=== PATIENT | female | born 1960 | race Hispanic/Latino ===

== ENCOUNTER 2021-01-04 17:34 | Inpatient (IN) | payer OTHER ==
[2021-01-04] MEDS ORDERED: dilTIAZem 25 MG/5 ML INJ ONE (19:00)
[2021-01-04] MEDS ORDERED: dilTIAZem 25 MG/5 ML INJ IV ONE (19:12)
--- NOTE | 2021-01-04 19:14 | Emergency Department Report ---
ED Shortness of Breath HPI - General Chief Complaint: Dyspnea/Respdistress Stated Complaint: SOB Time Seen by Provider: 01/04/21 19:00 Source: patient Mode of arrival: Ambulatory Limitations: No Limitations - History of Present Illness Initial Comments: 60-year-old female, no past medical history, presents to ED with shortness of breath x1 week. Patient reports some dyspnea on exertion. She reports some associated swelling in bilateral lower legs. Patient denies any chest pain, fever, cough. She denies any known contact with anyone who has tested positive for COVID-19. Patient states she has not received a COVID-19 vaccine yet. She is also reporting some lower abdominal pain. Patient reports tobacco use, denies any alcohol or drug use. MD Complaint: shortness of breath -: week(s) (1) Severity: moderate Consistency: intermittent Improves With: rest Worsens With: exertion Treatments Prior to Arrival: none - Related Data Allergies Allergy/AdvReac Type Severity Reaction Status Date / Time No Known Allergies Allergy Unverified 01/04/21 18:34 ED Review of Systems ROS: Stated complaint: SOB Other details as noted in HPI Comment: All other systems reviewed and negative Constitutional: denies: chills, fever Respiratory: SOB with exertion. denies: cough Cardiovascular: edema. denies: chest pain Gastrointestinal: abdominal pain ED Physical Exam - General Limitations: No Limitations General appearance: alert, anxious - Head Head exam: Present: atraumatic, normocephalic - Eye Eye exam: Present: normal appearance, EOMI - ENT ENT exam: Present: mucous membranes moist - Neck Neck exam: Present: normal inspection - Respiratory Respiratory exam: Present: other (Patient is tachypneic) - Cardiovascular Cardiovascular Exam: Present: tachycardia, irregular rhythm - GI/Abdominal GI/Abdominal exam: Present: soft. Absent: distended, tenderness - Extremities Exam Extremities exam: Present: other (1+ pitting edema bilateral lower legs). Absent: calf tenderness - Neurological Exam Neurological exam: Present: alert, oriented X3 - Psychiatric Psychiatric exam: Present: anxious - Skin Skin exam: Present: warm, dry, intact, normal color ED Course Vital Signs 01/04/21 01/04/21 01/04/21 18:32 18:58 19:00 Temperature 98.4 F Pulse Rate 187 H 183 H 192 H Respiratory 24 36 H Rate Blood Pressure 139/81 Blood Pressure 143/105 [Left] O2 Sat by Pulse 95 94 Oximetry 01/04/21 01/04/21 01/04/21 19:08 19:10 19:32 Temperature Pulse Rate 155 H 139 H 136 H Respiratory 26 H 37 H Rate Blood Pressure 148/110 Blood Pressure [Left] O2 Sat by Pulse 97 96 Oximetry 01/04/21 01/04/21 01/04/21 19:35 19:41 19:45 Temperature Pulse Rate 142 H 139 H 131 H Respiratory 38 H 33 H 31 H Rate Blood Pressure 119/66 Blood Pressure [Left] O2 Sat by Pulse 96 96 97 Oximetry 01/04/21 01/04/21 01/04/21 20:01 20:02 20:14 Temperature Pulse Rate 150 H 153 H 122 H Respiratory 36 H Rate Blood Pressure 94/73 119/66 112/76 Blood Pressure [Left] O2 Sat by Pulse 98 Oximetry 01/04/21 01/04/21 01/04/21 20:15 20:31 20:55 Temperature Pulse Rate 113 H 127 H 118 H Respiratory 23 29 H 42 H Rate Blood Pressure 112/76 128/76 128/76 Blood Pressure [Left] O2 Sat by Pulse 98 95 Oximetry 01/04/21 01/04/21 01/04/21 21:01 21:15 21:31 Temperature Pulse Rate 100 H 89 96 H Respiratory 31 H 32 H 24 Rate Blood Pressure 102/68 108/82 102/75 Blood Pressure [Left] O2 Sat by Pulse 90 98 98 Oximetry 01/04/21 01/04/21 01/04/21 21:45 22:01 22:15 Temperature Pulse Rate 112 H 109 H 98 H Respiratory 21 26 H 23 Rate Blood Pressure 105/58 105/81 98/67 Blood Pressure [Left] O2 Sat by Pulse 96 96 94 Oximetry 01/04/21 01/04/21 01/04/21 22:31 22:45 23:02 Temperature Pulse Rate 122 H 132 H 133 H Respiratory 19 23 Rate Blood Pressure 109/58 101/62 Blood Pressure [Left] O2 Sat by Pulse 96 99 Oximetry ED Medical Decision Making - Lab Data Result diagrams: 01/04/21 22:32 01/04/21 22:32 - EKG Data -: EKG Interpreted by Ms EKG shows normal: axis, intervals, QRS complexes, ST-T waves Rate: tachycardia (rate 193) - EKG Data Interpretation: other (Atrial fibrillation with RVR) - Radiology Data Radiology results: report reviewed, image reviewed - Medical Decision Making 65-year-old female presents to ED with dyspnea on exertion x1 week. Patient also presents tachycardic. EKG shows A. fib with RVR. Patient given Cardizem, which improved rate from the 190s to the 140s. Patient was then given 5 of metoprolol and metoprolol 25 mg p.o. rate improved to the 90s. BNP is elevated. CTA chest was performed secondary to elevated D-dimer. CTA shows moderate bilateral pleural effusions and interstitial edema. Patient given IV Lasix. She will be admitted by hospitalist, Dr. Arroyo, for further management. - Differential Diagnosis CHF, PE, pneumonia Critical Care Time: Yes Critical care time in (mins) excluding proc time.: 35 Critical care attestation.: If time is entered above; I have spent that time in minutes in the direct care of this critically ill patient, excluding procedure time. Critical Care Time: 35 min ED Disposition Clinical Impression: New onset atrial fibrillation, Atrial fibrillation with RVR, New onset of congestive heart failure Disposition: OP ADMIT IP TO THIS HOSP Is pt being admited?: Yes Condition: Stable Time of Disposition: 21:14
--- NOTE | 2021-01-04 19:24 | XRay Report ---
CHEST 1 VIEW 01/04/2021 6:16 PM INDICATION / CLINICAL INFORMATION: Difficulty breathing and right leg pain starting one week ago. Shannon rtness of breath COMPARISON: None available. FINDINGS: SUPPORT DEVICES: None. HEART / MEDIASTINUM: The heart is mildly enlarged. LUNGS / PLEURA: Interstitial lung markings are mildly increased diffusely. There are small bilateral pleural effusions with obscuration of the hemidiaphragms. No pneumothorax. ADDITIONAL FINDINGS: No significant additional findings. IMPRESSION: Mild congestive heart failure. Signer Name: Zeke Lester MD Signed: 01/04/2021 7:20 PM Workstation Name: [id number]
[2021-01-04 19:35] LABS: Basophils % (Auto) 0.4 % (0.0-1.8); Eosinophils % (Auto) 0.4 % (0.0-4.3); Hematocrit 35.4 % (30.3-42.9); Hemoglobin 11.7 gm/dl (10.1-14.3); Lymphocytes # (Auto) 1.4 K/mm3 (1.2-5.4); Lymphocytes % (Auto) 22.4 % (13.4-35.0); Mean Corpuscular HGB Conc 33 % (30-34); Mean Corpuscular Volume 83 fl (79-97); Monocytes # (Auto) 0.5 K/mm3 (0.0-0.8); Monocytes % (Auto) 8.3 % (0.0-7.3); Platelet Count 159 K/mm3 (140-440); Red Blood Count 4.28 M/mm3 (3.65-5.03); Red Cell Distribution Width 14.8 % (13.2-15.2)
[2021-01-04 19:38] LABS: Bacteria,Urine 1+ /HPF (Negative); Bilirubin,Urine NEG (Negative); Blood,Urine NEG (Negative); Color,Urine Amber (Yellow); Hyaline Casts,Urine 1 /LPF; Mucus,Urine 3+ /HPF
[2021-01-04 19:44] LABS: INR 1.25 (0.87-1.13)
[2021-01-04 19:45] LABS: Partial Thromboplastin Time 27.7 Sec. (24.2-36.6)
[2021-01-04 19:45] LABS: Amphetamine Screen,Urine Negative; Benzodiazepines Screen,Urine Negative; Cannabinoid Screen,Urine Negative; Cocaine Screen,Urine Negative; Methadone Screen,Urine Negative; Opiate Screen,Urine Negative
[2021-01-04 19:49] LABS: Blood Urea Nitrogen 17 mg/dL (7-17); Calcium 8.8 mg/dL (8.4-10.2); Hemolysis Index 4
[2021-01-04 19:50] LABS: BUN/Creatinine Ratio 28
[2021-01-04 19:53] LABS: Albumin 3.4 g/dL (3.9-5); Bilirubin,Direct 0.4 mg/dL (0-0.2)
[2021-01-04] MEDS ORDERED: METOPROLOL TARTRATE 50 MG TAB PO ONE ×2 (19:55→20:10)
[2021-01-04] MEDS ORDERED: METOPROLOL TARTRATE 5 MG/5 ML INJ IV ONE (19:58)
[2021-01-04] MEDS ORDERED: FUROSEMIDE 40 MG/4 ML INJ IV ONE (20:57)
--- NOTE | 2021-01-04 21:06 | Cat Scan Report ---
CTA CHEST WITH CONTRAST INDICATION / CLINICAL INFORMATION: Shortness of breath. TECHNIQUE: Axial CT images were obtained through the chest after injection of 100 cc Omnipaque 350 IV contrast. 3 plane MIP and/or 3D reconstructions were produced. All CT scans at this location are per formed using CT dose reduction for ALARA by means of automated exposure control. COMPARISON: None available. FINDINGS: PULMONARY ARTERIES: Good opacification without intraluminal filling defect to suggest acute PTE. THORACIC AORTA: Mild atherosclerotic calcification without acute abnormality. HEART: Enlarged. CORONARY ARTERY CALCIFICATION: Mild. MEDIASTINUM / MEAGAN: No significant abnormality. PLEURA: Moderate bilateral effusions. No pneumothorax. LUNGS: Diffuse interstitial edema with Ina B lines. More confluent bibasilar consolidation. ADDITIONAL FINDINGS: Moderate generalized anasarca. UPPER ABDOMEN: Mild upper abdominal ascites. Reflux of contrast into the IVC. SKELETAL STRUCTURES: No significant osseous abnormality. IMPRESSION: 1. No CT evidence for pulmonary embolism. 2. Moderate congestive heart failure. Generalized anasarca. Signer Name: Zeke Lester MD Signed: 01/04/2021 9:02 PM Workstation Name: [id number]
[2021-01-04] MEDS ORDERED: LORazepam 2 MG/ML VIAL ONE (21:20)
[2021-01-04] MEDS ORDERED: LORazepam 2 MG/ML VIAL IV ONE (21:23)
[2021-01-04] MEDS ORDERED: NITROGLYCERIN 0.4 MG TAB SUBL SL PRN (21:48)
[2021-01-04] MEDS ORDERED: ALBUTEROL 2.5 MG/3 ML NEBU IH PRN (21:48)
[2021-01-04] MEDS ORDERED: MORPHINE 2 MG/1 ML INJ IV PRN (21:48)
[2021-01-04] MEDS ORDERED: ONDANSETRON 4 MG/2 ML INJ IV PRN (21:48)
[2021-01-04] MEDS ORDERED: ACETAMINOPHEN 325 MG TAB PO PRN (21:48)
--- NOTE | 2021-01-04 21:59 | History and Physical Report ---
History of Present Illness Date of examination: 01/04/21 Date of admission: 01/04/21 Chief complaint: Shortness of breath A. fib with RVR History of present illness: 60-year-old female with no significant past medical history was brought to the emergency room because of progressive shortness of breath particularly on exertion for last 1 week. She reports some associated swelling in bilateral lower legs. Patient denies any chest pain, fever, cough. She denies any known contact with anyone who has tested positive for COVID-19. Patient states she has not received a COVID-19 vaccine yet. She is also reporting some lower abdominal pain. Patient reports tobacco use, denies any alcohol or drug use. In the emergency room patient is found to have acute CHF exacerbation. Patient also has A. fib with RVR. D-dimer is elevated 1343.06. proBNP 1810. CT scan of the chest showed no PE, moderate acute congestive heart failure generalized anasarca Medications and Allergies Allergies Allergy/AdvReac Type Severity Reaction Status Date / Time No Known Allergies Allergy Unverified 01/04/21 18:34 Review of Systems Cardiovascular: orthopnea, edema, shortness of breath, dyspnea on exertion Respiratory: shortness of breath, dyspnea on exertion Exam - Constitutional Vitals: Temp Pulse Resp BP Pulse Ox 98.4 F 112 H 21 105/58 96 01/04/21 18:32 01/04/21 21:45 01/04/21 21:45 01/04/21 21:45 01/04/21 21:45 General appearance: Present: no acute distress, well-nourished - EENT Eyes: Present: PERRL ENT: hearing intact, clear oral mucosa - Neck Neck: Present: supple, normal ROM - Respiratory Respiratory effort: normal Respiratory: left: rales - Cardiovascular Rhythm: irregularly irregular Heart Sounds: Present: S1 & S2. Absent: rub, click - Extremities Extremities: pulses symmetrical, No edema Extremity abnormal: edema Peripheral Pulses: within normal limits - Abdominal General gastrointestinal: Present: soft, non-tender, non-distended, normal bowel sounds Female genitourinary: Present: normal - Integumentary Integumentary: Present: clear, warm, dry - Musculoskeletal Musculoskeletal: gait normal, strength equal bilaterally - Psychiatric Psychiatric: appropriate mood/affect, intact judgment & insight - Neurologic Neurologic: CNII-XII intact, moves all extremities HEART Score - HEART Score Age: 45-65 Risk factors: 1-2 risk factors Troponin: Troponin T < 0.010 ng/mL (0.00-0.029) 01/04/21 19: Troponin: < normal limit Results - Labs CBC & Chem 7: 01/04/21 19:21 01/04/21 19:21 Labs: Laboratory Last Values WBC 6.1 K/mm3 (4.5-11.0) 01/04/21 19: RBC 4.28 M/mm3 (3.65-5.03) 01/04/21 19: Hgb 11.7 gm/dl (10.1-14.3) 01/04/21 19: Hct 35.4 % (30.3-42.9) 01/04/21 19: MCV 83 fl (79-97) 01/04/21 19: MCH 27 pg (28-32) L 01/04/21 19: MCHC 33 % (30-34) 01/04/21 19: RDW 14.8 % (13.2-15.2) 01/04/21 19: Plt Count 159 K/mm3 (140-440) 01/04/21 19: Lymph % (Auto) 22.4 % (13.4-35.0) 01/04/21 19: [place] % (Auto) 8.3 % (0.0-7.3) H 01/04/21 19: Eos % (Auto) 0.4 % (0.0-4.3) 01/04/21 19: Baso % (Auto) 0.4 % (0.0-1.8) 01/04/21 19:21 Lymph # (Auto) 1.4 K/mm3 (1.2-5.4) 01/04/21 19: [place] # (Auto) 0.5 K/mm3 (0.0-0.8) 01/04/21 19: Eos # (Auto) 0.0 K/mm3 (0.0-0.4) 01/04/21 19:21 Baso # (Auto) 0.0 K/mm3 (0.0-0.1) 01/04/21 19: Seg Neutrophils % 68.5 % (40.0-70.0) 01/04/21 19:21 Seg Neutrophils # 4.2 K/mm3 (1.8-7.7) 01/04/21 19:21 PT 15.7 Sec. (12.2-14.9) H 01/04/21 19:21 INR 1.25 (0.87-1.13) H 01/04/21 19:21 APTT 27.7 Sec. (24.2-36.6) 01/04/21 19:21 D-Dimer 1343.06 ng/mlDDU (0-234) H 01/04/21 19:21 Sodium 137 mmol/L (137-145) 01/04/21 19:21 Potassium 4.2 mmol/L (3.6-5.0) 01/04/21 19:21 Chloride 105.7 mmol/L (98-107) 01/04/21 19:21 Carbon Dioxide 21 mmol/L (22-30) L 01/04/21 19:21 Anion Gap 15 mmol/L 01/04/21 19:21 BUN 17 mg/dL (7-17) 01/04/21 19:21 Creatinine 0.6 mg/dL (0.6-1.2) 01/04/21 19:21 Estimated GFR > 60 ml/min 01/04/21 19:21 BUN/Creatinine Ratio 28 % 01/04/21 19:21 Glucose 135 mg/dL (65-100) H 01/04/21 19:21 Calcium 8.8 mg/dL (8.4-10.2) 01/04/21 19:21 Total Bilirubin 0.90 mg/dL (0.1-1.2) 01/04/21 19:21 Direct Bilirubin 0.4 mg/dL (0-0.2) H 01/04/21 19:21 Indirect Bilirubin 0.5 mg/dL 01/04/21 19:21 AST 21 units/L (5-40) 01/04/21 19:21 ALT 12 units/L (7-56) 01/04/21 19:21 Alkaline Phosphatase 119 units/L (35-129) 01/04/21 19:21 Troponin T < 0.010 ng/mL (0.00-0.029) 01/04/21 19:21 NT-Pro-B Natriuret Pep 1810 pg/mL (0-900) H 01/04/21 19:21 Total Protein 6.6 g/dL (6.3-8.2) 01/04/21 19:21 Albumin 3.4 g/dL (3.9-5) L 01/04/21 19:21 Albumin/Globulin Ratio 1.1 % 01/04/21 19:21 Lipase 35 units/L (13-60) 01/04/21 19:26 Urine Color Shereen (Yellow) 01/04/21 Unknown Urine Turbidity Hazy (Clear) 01/04/21 Unknown Urine pH 5.0 (5.0-7.0) 01/04/21 Unknown Ur Specific [place] 1.025 (1.003-1.030) 01/04/21 Unknown Urine Protein 100 mg/dl mg/dL (Negative) 01/04/21 Unknown Urine Glucose (UA) Neg mg/dL (Negative) 01/04/21 Unknown Urine Ketones Neg mg/dL (Negative) 01/04/21 Unknown Urine Blood Neg (Negative) 01/04/21 Unknown Urine Nitrite Neg (Negative) 01/04/21 Unknown Urine Bilirubin Neg (Negative) 01/04/21 Unknown Urine Urobilinogen 4.0 mg/dL (<2.0) 01/04/21 Unknown Ur Leukocyte Esterase Sm (Negative) 01/04/21 Unknown Urine WBC (Auto) 11.0 /HPF (0.0-6.0) H 01/04/21 Unknown Urine RBC (Auto) 5.0 /HPF (0.0-6.0) 01/04/21 Unknown U Epithel Cells (Auto) 8.0 /HPF (0-13.0) 01/04/21 Unknown Urine Bacteria (Auto) 1+ /HPF (Negative) 01/04/21 Unknown Hyaline Casts 1 /LPF 01/04/21 Unknown Urine Mucus 3+ /HPF 01/04/21 Unknown Urine Opiates Screen Negative 01/04/21 Unknown Urine Methadone Screen Negative 01/04/21 Unknown Ur Barbiturates Screen Negative 01/04/21 Unknown Ur Phencyclidine Scrn Negative 01/04/21 Unknown Ur Amphetamines Screen Negative 01/04/21 Unknown U Benzodiazepines Scrn Negative 01/04/21 Unknown Urine Cocaine Screen Negative 01/04/21 Unknown U Marijuana (THC) Screen Negative 01/04/21 Unknown Drugs of Abuse Note Disclamer 01/04/21 Unknown - Imaging and Cardiology CT scan - chest: report reviewed Assessment and Plan VTE prophylaxis?: Chemical Plan of care discussed with patient/family: Yes - Patient Problems (1) New onset of congestive heart failure Status: Acute Plan to address problem: Admit the patient to the medical telemetry. Put the patient on CHF pathway. Oxygen by nasal cannula 3 to per minute. DuoNeb by nebulizer every 4 hours as needed. Fluid restriction. Lasix 40 mg IV every 12 hours. Strict input output. Echocardiogram. Will consult cardiology for evaluation. (2) New onset atrial fibrillation Status: Acute Plan to address problem: Patient got Cardizem 20 mg IV x1 dose. We will put the patient on Lopressor 25 mg p.o. twice daily. Aspirin 325 mg p.o. daily. Lipitor 40 mg p.o. daily. Echocardiogram. Will consult cardiology for evaluation. Heparin 5000 units sub cu every 8 hours (3) Atrial fibrillation with RVR Status: Acute Plan to address problem: Patient got Cardizem 20 mg IV x1 dose. We will put the patient on Lopressor 25 mg p.o. twice daily. Aspirin 325 mg p.o. daily. Lipitor 40 mg p.o. daily. Echocardiogram. Will consult cardiology for evaluation. Heparin 5000 units subcu every 8 hours (4) Tobacco abuse Status: Acute Plan to address problem: We counseled regarding quitting smoking. We put the patient on nicotine patch 7 mg transdermally daily (5) UTI (urinary tract infection) Status: Acute Plan to address problem: Rocephin 1 g IV daily. We sent the blood and urine for culture (6) DVT prophylaxis Status: Acute Plan to address problem: Heparin 5000 units subcu every 8 hours for DVT prophylaxis. Pepcid 20 mg p.o. twice daily for GI prophylaxis. Patient is a full code.
[2021-01-04] MEDS ORDERED: hydrALAZINE 20 MG/1 ML INJ IV PRN (22:02)
[2021-01-04] MEDS ORDERED: NICOTINE 7 MG/24 HR PATCH TD ONE (22:33)
[2021-01-04 22:54] LABS: Basophils % (Auto) 0.4 % (0.0-1.8); Eosinophils % (Auto) 0.3 % (0.0-4.3); Hematocrit 36.3 % (30.3-42.9); Hemoglobin 11.7 gm/dl (10.1-14.3); Lymphocytes # (Auto) 1.3 K/mm3 (1.2-5.4); Lymphocytes % (Auto) 21.5 % (13.4-35.0); Mean Corpuscular HGB Conc 32 % (30-34); Mean Corpuscular Volume 83 fl (79-97); Monocytes # (Auto) 0.5 K/mm3 (0.0-0.8); Platelet Count 158 K/mm3 (140-440); Red Blood Count 4.37 M/mm3 (3.65-5.03); Red Cell Distribution Width 15.4 % (13.2-15.2)
[2021-01-04] MEDS: METOPROLOL TARTRATE 25 MG TAB PO SCH (23:02)
[2021-01-04] MEDS: FAMOTIDINE 20 MG TAB PO SCH (23:03)
[2021-01-04 23:06] LABS: Blood Urea Nitrogen 17 mg/dL (7-17); Hemolysis Index 5
[2021-01-04 23:45] LABS: BUN/Creatinine Ratio 28
[2021-01-05] MEDS: cefTRIAXone/NS 1 GM/50 ML 1 GM/50 ML BAG IV SCH ×2 (00:42→10:11)
[2021-01-05] MEDS: HEPARIN 5,000 UNIT/1 ML VIAL SUB-Q SCH ×3 (05:37→22:32)
[2021-01-05] MEDS: FUROSEMIDE 40 MG/4 ML INJ IV SCH ×2 (05:38→19:06)
[2021-01-05 06:33] LABS: Basophils % (Auto) 0.5 % (0.0-1.8); Eosinophils % (Auto) 0.7 % (0.0-4.3); Hematocrit 32.6 % (30.3-42.9); Hemoglobin 10.7 gm/dl (10.1-14.3); Lymphocytes # (Auto) 2.4 K/mm3 (1.2-5.4); Lymphocytes % (Auto) 44.1 % (13.4-35.0); Mean Corpuscular HGB Conc 33 % (30-34); Mean Corpuscular Volume 82 fl (79-97); Monocytes # (Auto) 0.5 K/mm3 (0.0-0.8); Monocytes % (Auto) 9.5 % (0.0-7.3); Platelet Count 148 K/mm3 (140-440); Red Blood Count 3.97 M/mm3 (3.65-5.03)
[2021-01-05 06:45] LABS: Blood Urea Nitrogen 18 mg/dL (7-17); Calcium 8.9 mg/dL (8.4-10.2); Hemolysis Index 0
[2021-01-05] MEDS ORDERED: dilTIAZem 25 MG/5 ML INJ IV ONE (06:46)
[2021-01-05 06:55] LABS: BUN/Creatinine Ratio 30
[2021-01-05] MEDS: IPRATROPIUM/ALBUTEROL SULFATE 3 ML AMPUL.NEB IH SCH ×4 (08:36→20:21)
[2021-01-05] MEDS: FAMOTIDINE 20 MG TAB PO SCH ×2 (10:11→22:32)
[2021-01-05] MEDS: LISINOPRIL 5 MG TAB PO SCH (10:11)
[2021-01-05] MEDS: ASPIRIN 325 MG TAB PO SCH (10:11)
[2021-01-05] MEDS: METOPROLOL TARTRATE 25 MG TAB PO SCH ×2 (10:15→19:05)
--- NOTE | 2021-01-05 10:38 | Consultation ---
History of Present Illness Consult date: 01/05/21 Consult reason: atrial fibrillation, congestive heart failure History of present illness: 60-year-old female presenting with shortness of breath and dyspnea on exertion for the past few days. She denies any chest pains. Past History Past Medical History: No medical history, COPD Past Surgical History: No surgical history Social history: no significant social history Family history: no significant family history Medications and Allergies Allergies Allergy/AdvReac Type Severity Reaction Status Date / Time No Known Allergies Allergy Unverified 01/04/21 18:34 Active Meds: Active Medications Acetaminophen (Acetaminophen 325 Mg Tab) 650 mg PO Q4H PRN PRN Reason: Pain MILD(1-3)/Fever >100.5/HAMMONDS Albuterol (Albuterol 2.5 Mg/3 Ml Nebu) 2.5 mg IH Q3HRT PRN PRN Reason: Shortness Of Breath Albuterol/Ipratropium (Ipratropium/Albuterol Sulfate 3 Ml Ampul.Neb) 1 ampul IH Q6HRT [facility] Last Admin: 01/05/21 09:14 Dose: 1 ampul Documented by: Aspirin (Aspirin 325 Mg Tab) 325 mg PO QDAY [facility] Last Admin: 01/05/21 10:11 Dose: 325 mg Documented by: Atorvastatin Calcium (Atorvastatin 40 Mg Tab) 40 mg PO QHS [facility] Last Admin: 01/04/21 23:02 Dose: 40 mg Documented by: Famotidine (Famotidine 20 Mg Tab) 20 mg PO BID [facility] Last Admin: 01/05/21 10:11 Dose: 20 mg Documented by: Furosemide (Furosemide 40 Mg/4 Ml Inj) 40 mg IV BID@0600,1800 [facility] Last Admin: 01/05/21 05:38 Dose: Not Given Documented by: Heparin Sodium (Porcine) (Heparin 5,000 Unit/1 Ml Vial) 5,000 unit SUB-Q Q8HR [facility] Last Admin: 01/05/21 05:37 Dose: 5,000 unit Documented by: Hydralazine HCl (Hydralazine 20 Mg/1 Ml Inj) 10 mg IV Q6H PRN PRN Reason: htn Ceftriaxone Sodium (Rocephin/Ns 1 Gm/50 Ml) 1 gm in 50 mls @ 100 mls/hr IV Q24HR [facility]; Protocol Last Admin: 01/05/21 10:11 Dose: 100 mls/hr Documented by: Lisinopril (Lisinopril 5 Mg Tab) 5 mg PO QDAY [facility] Last Admin: 01/05/21 10:11 Dose: 5 mg Documented by: Metoprolol Tartrate (Metoprolol Tartrate 25 Mg Tab) 25 mg PO BID@0800,1700 [facility] Last Admin: 01/05/21 10:15 Dose: 25 mg Documented by: Morphine Sulfate (Morphine 2 Mg/1 Ml Inj) 2 mg IV Q5MIN PRN PRN Reason: Chest Pain unrelieved by NTG Nitroglycerin (Nitroglycerin 0.4 Mg Tab Subl) 0.4 mg SL .Q5MIN PRN PRN Reason: Chest Pain Ondansetron HCl (Ondansetron 4 Mg/2 Ml Inj) 4 mg IV Q8H PRN PRN Reason: Nausea And Vomiting Sodium Chloride (Sodium Chloride 0.9% 10 Ml Flush Syringe) 10 ml IV BID [facility] Last Admin: 01/05/21 10:16 Dose: 10 ml Documented by: Sodium Chloride (Sodium Chloride 0.9% 10 Ml Flush Syringe) 10 ml IV PRN PRN PRN Reason: LINE FLUSH Tramadol HCl (Tramadol 50 Mg Tab) 50 mg PO Q6H PRN PRN Reason: Pain, Moderate (4-6) Review of Systems Constitutional: no weight loss, no weight gain, no anorexia, no fatigue Ears, nose, mouth and throat: no ear pain, no ear discharge, no tinnitis, no sinus pain Breasts: no deferred, no normal, no change in shape Cardiovascular: orthopnea, shortness of breath, dyspnea on exertion Respiratory: shortness of breath, dyspnea on exertion, congestion Gastrointestinal: abdominal pain, nausea, vomiting Genitourinary Female: no dyspareunia, no dysmenorrhea, no pelvic pain Menstruation: no currently menstrual, no premenarcheal Rectal: no pain, no incontinence Musculoskeletal: no neck stiffness, no neck pain, no shooting arm pain, no hot joints, no muscle weakness Integumentary: no deferred, no rash, no pruritis Neurological: no head injury, no paralysis, no weakness, no parathesias, no vertigo Psychiatric: no anxiety, no memory loss, no change in sleep habits Endocrine: no cold intolerance, no heat intolerance Physical Examination Vital Signs Temp Pulse Resp BP Pulse Ox 98.4 F 187 H 24 139/81 95 01/04/21 18:32 01/04/21 18:32 01/04/21 18:32 01/04/21 18:32 01/04/21 18:32 General appearance: no acute distress, well-nourished HEENT: Positive: PERRL, Normocephaly, Mucus Membranes Moist Neck: Positive: neck supple, trachea midline. Negative: JVD/HJR Cardiac: Positive: irregularly irregular, S1/S2, PMI, Dilated, Laterally Displaced Lungs: Positive: clear to auscultation. Negative: No Wheeze, Rales, Rhonchi Neuro: Positive: Grossly Intact Abdomen: Positive: Unremarkable, Soft Extremities: Absent: edema Results 01/05/21 05:21 01/05/21 05: Cardiac Enzymes 01/04/21 Range/Units 19: AST 21 (5-40) units/L Coagulation 01/04/21 Range/Units 19:21 PT 15.7 H (12.2-14.9) Sec. INR 1.25 H (0.87-1.13) APTT 27.7 (24.2-36.6) Sec. CBC 01/04/21 01/04/21 01/05/21 Range/Units 19:21 22:32 05:21 WBC 6.1 6.0 5.5 (4.5-11.0) K/mm3 RBC 4.28 4.37 3.97 (3.65-5.03) M/mm3 Hgb 11.7 11.7 10.7 (10.1-14.3) gm/dl Hct 35.4 36.3 32.6 (30.3-42.9) % Plt Count 159 158 148 (140-440) K/mm3 Lymph # (Auto) 1.4 1.3 2.4 (1.2-5.4) K/mm3 [place] # (Auto) 0.5 0.5 0.5 (0.0-0.8) K/mm3 Eos # (Auto) 0.0 0.0 0.0 (0.0-0.4) K/mm3 Baso # (Auto) 0.0 0.0 0.0 (0.0-0.1) K/mm3 Comprehensive Metabolic Panel 01/04/21 01/04/21 01/04/21 Range/Units 19:21 19:21 22:32 Sodium 137 139 (137-145) mmol/L Potassium 4.2 4.4 (3.6-5.0) mmol/L Chloride 105.7 105.9 (98-107) mmol/L Carbon Dioxide 21 L 24 (22-30) mmol/L BUN 17 17 (7-17) mg/dL Creatinine 0.6 0.6 (0.6-1.2) mg/dL Glucose 135 H 112 H (65-100) mg/dL Calcium 8.8 9.0 (8.4-10.2) mg/dL Direct Bilirubin 0.4 H (0-0.2) mg/dL Indirect Bilirubin 0.5 mg/dL AST 21 (5-40) units/L ALT 12 (7-56) units/L Alkaline Phosphatase 119 (35-129) units/L Total Protein 6.6 (6.3-8.2) g/dL Albumin 3.4 L (3.9-5) g/dL 01/05/21 Range/Units 05:21 Sodium 140 (137-145) mmol/L Potassium 4.2 (3.6-5.0) mmol/L Chloride 107.4 H (98-107) mmol/L Carbon Dioxide 23 (22-30) mmol/L BUN 18 H (7-17) mg/dL Creatinine 0.6 (0.6-1.2) mg/dL Glucose 95 (65-100) mg/dL Calcium 8.9 (8.4-10.2) mg/dL Direct Bilirubin (0-0.2) mg/dL Indirect Bilirubin mg/dL AST (5-40) units/L ALT (7-56) units/L Alkaline Phosphatase (35-129) units/L Total Protein (6.3-8.2) g/dL Albumin (3.9-5) g/dL - EKG Interpretation EKG shows: atrial fibrillation EKG interpretations - Telemetry EKG Rhythm: Atrial Fibrillation Assessment and Plan 1. Acute congestive systolic heart failure 2. Atrial fibrillation with a rapid ventricular response 3.. COPD Patient currently in atrial fibrillation with a rapid ventricular response probable etiology for her acute CHF. Chest x-ray shows mild pulmonary vascular congestion. CTA of the chest negative for pulmonary embolism. Plan. Patient to be started on the Cardizem drip to control ventricular response atrial fibrillation full dose anticoagulation check TSH level check echocardiogram and rule out underlying ischemic coronary artery disease once ventricular response to atrial fibrillation is controlled.
--- NOTE | 2021-01-05 11:06 | Progress Note ---
Assessment and Plan Assessment and plan: 60-year-old female with no significant past medical history was brought to the emergency room because of progressive shortness of breath particularly on exertion for last 1 week. She reports some associated swelling in bilateral lower legs. Patient denies any chest pain, fever, cough. She denies any known contact with anyone who has tested positive for COVID-19. Patient states she has not received a COVID-19 vaccine yet. She is also reporting some lower abdominal pain. Patient reports tobacco use, denies any alcohol or drug use. In the emergency room patient is found to have acute CHF exacerbation. Patient also has A. fib with RVR. D-dimer is elevated 1343.06. proBNP 1810. CT scan of the chest showed no PE, moderate acute congestive heart failure generalized anasarca 01/05: Patient seen and examined resting comfortably although gets short of breath with exertion. Continue IV Lasix. Patient also on Cardizem drip for ventricular response control for A. fib and full anticoagulation. Seen by cardiology awaiting echocardiogram report and will check TSH. Recommended that the patient will be evaluated for ischemic work-up once A. fib is corrected. I did discuss extensively with the patient on tobacco use cessation she verbalized understanding and plans to quit tobacco use. She understands the risk associated with continued tobacco use considering her medical condition. She currently lives with her sister discharge she plans to obtain a primary care doctor insurance so that she can get work-up for possible underlying COPD Patient still has some hypoxia and exertional dyspnea unable to be discharged at this time needs further inpatient work-up including diuresis (1) New onset of congestive heart failure Status: Acute Plan to address problem: Admit the patient to the medical telemetry. Put the patient on CHF pathway. Oxygen by nasal cannula 3 to per minute. DuoNeb by nebulizer every 4 hours as needed. Fluid restriction. Lasix 40 mg IV every 12 hours. Strict input output. Echocardiogram. Will consult cardiology for evaluation. (2) New onset atrial fibrillation Status: Acute Plan to address problem: Patient got Cardizem 20 mg IV x1 dose. We will put the patient on Lopressor 25 mg p.o. twice daily. Aspirin 325 mg p.o. daily. Lipitor 40 mg p.o. daily. Echocardiogram. Will consult cardiology for evaluation. Heparin 5000 units subcu every 8 hours (3) Atrial fibrillation with RVR Status: Acute Plan to address problem: Patient got Cardizem 20 mg IV x1 dose. We will put the patient on Lopressor 25 mg p.o. twice daily. Aspirin 325 mg p.o. daily. Lipitor 40 mg p.o. daily. Echocardiogram. Will consult cardiology for evaluation. Heparin 5000 units subcu every 8 hours (4) Tobacco abuse Status: Acute Plan to address problem: We counseled regarding quitting smoking. We put the patient on nicotine patch 7 mg transdermally daily (5) UTI (urinary tract infection) Status: Acute Plan to address problem: Rocephin 1 g IV daily. We sent the blood and urine for culture (6) presumed COPD (7) DVT prophylaxis Status: Acute Plan to address problem: Heparin 5000 units subcu every 8 hours for DVT prophylaxis. Pepcid 20 mg p.o. twice daily for GI prophylaxis. Patient is a full code. History Interval history: Patient seen and examined resting comfortably although states that she gets s hort of breath with exertion. Denies any chest pain Hospitalist Physical - Physical exam Narrative exam: VITAL SIGNS: Reviewed. GENERAL: The patient appears normally developed, Vital signs as documented. HEAD: No signs of head trauma. EYES: Pupils are equal. Extraocular motions intact. EARS: Hearing grossly intact. MOUTH: Oropharynx is normal. NECK: No adenopathy, no JVD. CHEST: Chest with clear breath sounds bilaterally. No wheezes, rales, or rhonchi. CARDIAC: Irregularly irregular. S1 and S2, without murmurs, gallops, or rubs. VASCULAR: No Edema. Peripheral pulses normal and equal in all extremities. ABDOMEN: Soft, non tender and non distended. No rebound or guarding, and no masses palpated. Bowel Sounds normal. MUSCULOSKELETAL: Good range of motion of all major joints. Extremities without clubbing, cyanosis. 2+ pitting edema bilaterally. NEUROLOGIC EXAM: Alert and oriented x 3 No focal sensory or strength deficits. Speech normal. Follows commands. PSYCHIATRIC: Mood normal. SKIN: Some old healed wound left lower extremity. Detail exam as documented in skin assessment - Constitutional Vitals: Temp Pulse Resp BP Pulse Ox 97.4 F L 125 H 20 101/60 96 01/05/21 04:12 01/05/21 10:15 01/05/21 09:14 01/05/21 10:15 01/05/21 09:14 General appearance: Present: no acute distress, well-nourished HEART Score - HEART Score Age: 45-65 Risk factors: 1-2 risk factors Troponin: Troponin T < 0.010 ng/mL (0.00-0.029) 01/05/21 05:21 Troponin: < normal limit Results - Labs CBC & Chem 7: 01/05/21 05:21 01/05/21 05:21 Labs: Laboratory Last Values WBC 5.5 K/mm3 (4.5-11.0) 01/05/21 05:21 RBC 3.97 M/mm3 (3.65-5.03) 01/05/21 05:21 Hgb 10.7 gm/dl (10.1-14.3) 01/05/21 05:21 Hct 32.6 % (30.3-42.9) 01/05/21 05:21 MCV 82 fl (79-97) 01/05/21 05:21 MCH 27 pg (28-32) L 01/05/21 05:21 MCHC 33 % (30-34) 01/05/21 05:21 RDW 15.0 % (13.2-15.2) 01/05/21 05:21 Plt Count 148 K/mm3 (140-440) 01/05/21 05:21 Lymph % (Auto) 44.1 % (13.4-35.0) H 01/05/21 05:21 [place] % (Auto) 9.5 % (0.0-7.3) H 01/05/21 05:21 Eos % (Auto) 0.7 % (0.0-4.3) 01/05/21 05:21 Baso % (Auto) 0.5 % (0.0-1.8) 01/05/21 05:21 Lymph # (Auto) 2.4 K/mm3 (1.2-5.4) 01/05/21 05:21 [place] # (Auto) 0.5 K/mm3 (0.0-0.8) 01/05/21 05:21 Eos # (Auto) 0.0 K/mm3 (0.0-0.4) 01/05/21 05:21 Baso # (Auto) 0.0 K/mm3 (0.0-0.1) 01/05/21 05:21 Seg Neutrophils % 45.2 % (40.0-70.0) 01/05/21 05:21 Seg Neutrophils # 2.5 K/mm3 (1.8-7.7) 01/05/21 05:21 PT 15.7 Sec. (12.2-14.9) H 01/04/21 19:21 INR 1.25 (0.87-1.13) H 01/04/21 19:21 APTT 27.7 Sec. (24.2-36.6) 01/04/21 19:21 D-Dimer 1343.06 ng/mlDDU (0-234) H 01/04/21 19:21 Sodium 140 mmol/L (137-145) 01/05/21 05:21 Potassium 4.2 mmol/L (3.6-5.0) 01/05/21 05:21 Chloride 107.4 mmol/L (98-107) H 01/05/21 05:21 Carbon Dioxide 23 mmol/L (22-30) 01/05/21 05:21 Anion Gap 14 mmol/L 01/05/21 05:21 BUN 18 mg/dL (7-17) H 01/05/21 05:21 Creatinine 0.6 mg/dL (0.6-1.2) 01/05/21 05:21 Estimated GFR > 60 ml/min 01/05/21 05:21 BUN/Creatinine Ratio 30 % 01/05/21 05:21 Glucose 95 mg/dL (65-100) 01/05/21 05:21 Calcium 8.9 mg/dL (8.4-10.2) 01/05/21 05:21 Total Bilirubin 0.90 mg/dL (0.1-1.2) 01/04/21 19:21 Direct Bilirubin 0.4 mg/dL (0-0.2) H 01/04/21 19:21 Indirect Bilirubin 0.5 mg/dL 01/04/21 19:21 AST 21 units/L (5-40) 01/04/21 19:21 ALT 12 units/L (7-56) 01/04/21 19:21 Alkaline Phosphatase 119 units/L (35-129) 01/04/21 19:21 Troponin T < 0.010 ng/mL (0.00-0.029) 01/05/21 05:21 NT-Pro-B Natriuret Pep 1810 pg/mL (0-900) H 01/04/21 19:21 Total Protein 6.6 g/dL (6.3-8.2) 01/04/21 19:21 Albumin 3.4 g/dL (3.9-5) L 01/04/21 19:21 Albumin/Globulin Ratio 1.1 % 01/04/21 19: Lipase 35 units/L (13-60) 01/04/21 19:26 Urine Color Shereen (Yellow) 01/04/21 Unknown Urine Turbidity Hazy (Clear) 01/04/21 Unknown Urine pH 5.0 (5.0-7.0) 01/04/21 Unknown Ur Specific [place] 1.025 (1.003-1.030) 01/04/21 Unknown Urine Protein 100 mg/dl mg/dL (Negative) 01/04/21 Unknown Urine Glucose (UA) Neg mg/dL (Negative) 01/04/21 Unknown Urine Ketones Neg mg/dL (Negative) 01/04/21 Unknown Urine Blood Neg (Negative) 01/04/21 Unknown Urine Nitrite Neg (Negative) 01/04/21 Unknown Urine Bilirubin Neg (Negative) 01/04/21 Unknown Urine Urobilinogen 4.0 mg/dL (<2.0) 01/04/21 Unknown Ur Leukocyte Esterase Sm (Negative) 01/04/21 Unknown Urine WBC (Auto) 11.0 /HPF (0.0-6.0) H 01/04/21 Unknown Urine RBC (Auto) 5.0 /HPF (0.0-6.0) 01/04/21 Unknown U Epithel Cells (Auto) 8.0 /HPF (0-13.0) 01/04/21 Unknown Urine Bacteria (Auto) 1+ /HPF (Negative) 01/04/21 Unknown Hyaline Casts 1 /LPF 01/04/21 Unknown Urine Mucus 3+ /HPF 01/04/21 Unknown Urine Opiates Screen Negative 01/04/21 Unknown Urine Methadone Screen Negative 01/04/21 Unknown Ur Barbiturates Screen Negative 01/04/21 Unknown Ur Phencyclidine Scrn Negative 01/04/21 Unknown Ur Amphetamines Screen Negative 01/04/21 Unknown U Benzodiazepines Scrn Negative 01/04/21 Unknown Urine Cocaine Screen Negative 01/04/21 Unknown U Marijuana (THC) Screen Negative 01/04/21 Unknown Drugs of Abuse Note Disclamer 01/04/21 Unknown Bolaños/IV: Voiding Method Toilet Active Medications - Current Medications Current Medications: Generic Name Dose Route Start Last Admin Trade Name Freq PRN Reason Stop Dose Admin Acetaminophen 650 mg 01/04/21 21:48 Acetaminophen 325 Mg Tab PO Q4H PRN Pain MILD(1-3)/Fever >100.5/HAMMONDS Albuterol 2.5 mg 01/04/21 21:48 Albuterol 2.5 Mg/3 Ml Nebu IH Q3HRT PRN Shortness Of Breath Albuterol/Ipratropium 1 ampul 01/05/21 02:00 01/05/21 09:14 Ipratropium/Albuterol Sulfate 3 Ml Ampul.Neb IH 1 ampul Q6HRT VON Administration Aspirin 325 mg 01/05/21 10:00 01/05/21 10:11 Aspirin 325 Mg Tab PO 325 mg QDAY VON Administration Atorvastatin Calcium 40 mg 01/04/21 22:00 01/04/21 23:02 Atorvastatin 40 Mg Tab PO 40 mg QHS VON Administration Diltiazem HCl 30 mg 01/05/21 12:00 Diltiazem 30 Mg Tab PO Q6HR VON Famotidine 20 mg 01/04/21 22:00 01/05/21 10:11 Famotidine 20 Mg Tab PO 20 mg BID VON Administration Furosemide 40 mg 01/05/21 06:00 01/05/21 05:38 Furosemide 40 Mg/4 Ml Inj IV Not Given BID@0600,1800 [facility] Heparin Sodium (Porcine) 5,000 unit 01/05/21 06:00 01/05/21 05:37 Heparin 5,000 Unit/1 Ml Vial SUB-Q 5,000 unit Q8HR VON Administration Hydralazine HCl 10 mg 01/04/21 22:02 Hydralazine 20 Mg/1 Ml Inj IV Q6H PRN htn Ceftriaxone Sodium 1 gm in 50 mls @ 100 mls/hr 01/04/21 23:00 01/05/21 10:11 Rocephin/Ns 1 Gm/50 Ml IV 100 mls/hr Q24HR VON Administration Protocol Lisinopril 5 mg 01/05/21 10:00 01/05/21 10:11 Lisinopril 5 Mg Tab PO 5 mg QDAY VON Administration Metoprolol Tartrate 25 mg 01/04/21 22:00 01/05/21 10:15 Metoprolol Tartrate 25 Mg Tab PO 25 mg BID@0800,1700 VON Administration Morphine Sulfate 2 mg 01/04/21 21:48 Morphine 2 Mg/1 Ml Inj IV Q5MIN PRN Chest Pain unrelieved by NTG Nitroglycerin 0.4 mg 01/04/21 21:48 Nitroglycerin 0.4 Mg Tab Subl SL .Q5MIN PRN Chest Pain Ondansetron HCl 4 mg 01/04/21 21:48 Ondansetron 4 Mg/2 Ml Inj IV Q8H PRN Nausea And Vomiting Sodium Chloride 10 ml 01/04/21 22:00 01/05/21 10:16 Sodium Chloride 0.9% 10 Ml Flush Syringe IV 10 ml BID VON Administration Sodium Chloride 10 ml 01/04/21 21:48 Sodium Chloride 0.9% 10 Ml Flush Syringe IV PRN PRN LINE FLUSH Tramadol HCl 50 mg 01/04/21 21:48 Tramadol 50 Mg Tab PO Q6H PRN Pain, Moderate (4-6)
[2021-01-05] MEDS: dilTIAZem 30 MG TAB PO SCH ×2 (13:54→19:05)
[2021-01-05] MEDS: traMADol 50 MG TAB PO PRN (22:31)
[2021-01-06] MEDS ORDERED: IPRATROPIUM/ALBUTEROL SULFATE 3 ML AMPUL.NEB IH SCH ×3 (02:00→08:00)
[2021-01-06] MEDS: dilTIAZem 30 MG TAB PO SCH ×5 (06:16→23:19)
[2021-01-06] MEDS: FUROSEMIDE 40 MG/4 ML INJ IV SCH ×2 (06:18→10:40)
[2021-01-06] MEDS: HEPARIN 5,000 UNIT/1 ML VIAL SUB-Q SCH (06:18)
--- NOTE | 2021-01-06 09:01 | Progress Note ---
Assessment and Plan Assessment and plan: 60-year-old female with no significant past medical history was brought to the emergency room because of progressive shortness of breath particularly on exertion for last 1 week. She reports some associated swelling in bilateral lower legs. Patient denies any chest pain, fever, cough. She denies any known contact with anyone who has tested positive for COVID-19. Patient states she has not received a COVID-19 vaccine yet. She is also reporting some lower abdominal pain. Patient reports tobacco use, denies any alcohol or drug use. In the emergency room patient is found to have acute CHF exacerbation. Patient also has A. fib with RVR. D-dimer is elevated 1343.06. proBNP 1810. CT scan of the chest showed no PE, moderate acute congestive heart failure generalized anasarca 01/05: Patient seen and examined resting comfortably although gets short of breath with exertion. Continue IV Lasix. Patient also on Cardizem drip for ventricular response control for A. fib and full anticoagulation. Seen by cardiology awaiting echocardiogram report and will check TSH. Recommended that the patient will be evaluated for ischemic work-up once A. fib is corrected. I did discuss extensively with the patient on tobacco use cessation she verbalized understanding and plans to quit tobacco use. She understands the risk associated with continued tobacco use considering her medical condition. She currently lives with her sister discharge she plans to obtain a primary care doctor insurance so that she can get work-up for possible underlying COPD Patient still has some hypoxia and exertional dyspnea unable to be discharged at this time needs further inpatient work-up including diuresis 01/06: Patient still with some shortness of breath on exertion atrial fibrillation not properly controlled at this time. Discussed with cardiology patient also has evidence of right heart strain with cor pulmonale. Considering her COPD diagnosis again smoking cessation was discussed for 15 minutes we will go ahead and obtain pulmonary consultation. Pen Maker plans to give the patient 1 dose of dig while we change the Lasix to daily and as blood pressure improves may go back up on the Cardizem for better heart rate control. In the meantime we will order a free T4 as TSH is significantly low there may be a touch of hyperthyroidism in this case and starting patient on Tapazole may be helpful if diagnosed. (1) New onset of congestive heart failure Status: Acute Plan to address problem: Admit the patient to the medical telemetry. Put the patient on CHF pathway. Oxygen by nasal cannula 3 to per minute. DuoNeb by nebulizer every 4 hours as needed. Fluid restriction. Lasix 40 mg IV every 12 hours. Strict input outpu t. Echocardiogram. Will consult cardiology for evaluation. (2) New onset atrial fibrillation Status: Acute Plan to address problem: Patient got Cardizem 20 mg IV x1 dose. We will put the patient on Lopressor 25 mg p.o. twice daily. Aspirin 325 mg p.o. daily. Lipitor 40 mg p.o. daily. Echocardiogram. Will consult cardiology for evaluation. Heparin 5000 units subcu every 8 hours (3) Atrial fibrillation with RVR Status: Acute Plan to address problem: Patient got Cardizem 20 mg IV x1 dose. We will put the patient on Lopressor 25 mg p.o. twice daily. Aspirin 325 mg p.o. daily. Lipitor 40 mg p.o. daily. Echocardiogram. Will consult cardiology for evaluation. Heparin 5000 units subcu every 8 hours (4) Tobacco abuse Status: Acute Plan to address problem: We counseled regarding quitting smoking. We put the patient on nicotine patch 7 mg transdermally daily (5) UTI (urinary tract infection) Status: Acute Plan to address problem: Rocephin 1 g IV daily. We sent the blood and urine for culture (6) presumed COPD (7) cor pulmonale (8) DVT prophylaxis Status: Acute Plan to address problem: Heparin 5000 units subcu every 8 hours for DVT prophylaxis. Pepcid 20 mg p.o. twice daily for GI prophylaxis. Patient is a full code. History Interval history: Patient seen and examined resting comfortably although states that she gets short of breath with exertion. Denies any chest pain Hospitalist Physical - Physical exam Narrative exam: VITAL SIGNS: Reviewed. GENERAL: The patient appears normally developed, Vital signs as documented. HEAD: No signs of head trauma. EYES: Pupils are equal. Extraocular motions intact. EARS: Hearing grossly intact. MOUTH: Oropharynx is normal. NECK: No adenopathy, no JVD. CHEST: Chest with clear breath sounds bilaterally. No wheezes, rales, or rhonchi. CARDIAC: Irregularly irregular. S1 and S2, without murmurs, gallops, or rubs. VASCULAR: No Edema. Peripheral pulses normal and equal in all extremities. ABDOMEN: Soft, non tender and non distended. No rebound or guarding, and no masses palpated. Bowel Sounds normal. MUSCULOSKELETAL: Good range of motion of all major joints. Extremities without clubbing, cyanosis. 2+ pitting edema bilaterally. NEUROLOGIC EXAM: Alert and oriented x 3 No focal sensory or strength deficits. Speech normal. Follows commands. PSYCHIATRIC: Mood normal. SKIN: Some old healed wound left lower extremity. Detail exam as documented in skin assessment - Constitutional Vitals: Temp Pulse Resp BP Pulse Ox 98.0 F 122 H 18 103/62 92 01/06/21 07:51 01/06/21 07:51 01/06/21 07:51 01/06/21 07:51 01/06/21 07:51 General appearance: Present: no acute distress, well-nourished HEART Score - HEART Score Age: 45-65 Risk factors: 1-2 risk factors Troponin: Troponin T < 0.010 ng/mL (0.00-0.029) 01/05/21 05:21 Troponin: < normal limit Results - Labs CBC & Chem 7: 01/05/21 05:21 01/05/21 05:21 Labs: Laboratory Last Values WBC 5.5 K/mm3 (4.5-11.0) 01/05/21 05:21 RBC 3.97 M/mm3 (3.65-5.03) 01/05/21 05:21 Hgb 10.7 gm/dl (10.1-14.3) 01/05/21 05:21 Hct 32.6 % (30.3-42.9) 01/05/21 05:21 MCV 82 fl (79-97) 01/05/21 05:21 MCH 27 pg (28-32) L 01/05/21 05:21 MCHC 33 % (30-34) 01/05/21 05:21 RDW 15.0 % (13.2-15.2) 01/05/21 05:21 Plt Count 148 K/mm3 (140-440) 01/05/21 05:21 Lymph % (Auto) 44.1 % (13.4-35.0) H 01/05/21 05:21 [place] % (Auto) 9.5 % (0.0-7.3) H 01/05/21 05:21 Eos % (Auto) 0.7 % (0.0-4.3) 01/05/21 05:21 Baso % (Auto) 0.5 % (0.0-1.8) 01/05/21 05:21 Lymph # (Auto) 2.4 K/mm3 (1.2-5.4) 01/05/21 05:21 [place] # (Auto) 0.5 K/mm3 (0.0-0.8) 01/05/21 05:21 Eos # (Auto) 0.0 K/mm3 (0.0-0.4) 01/05/21 05:21 Baso # (Auto) 0.0 K/mm3 (0.0-0.1) 01/05/21 05:21 Seg Neutrophils % 45.2 % (40.0-70.0) 01/05/21 05:21 Seg Neutrophils # 2.5 K/mm3 (1.8-7.7) 01/05/21 05:21 PT 15.7 Sec. (12.2-14.9) H 01/04/21 19:21 INR 1.25 (0.87-1.13) H 01/04/21 19:21 APTT 27.7 Sec. (24.2-36.6) 01/04/21 19:21 D-Dimer 1343.06 ng/mlDDU (0-234) H 01/04/21 19:21 Sodium 140 mmol/L (137-145) 01/05/21 05:21 Potassium 4.2 mmol/L (3.6-5.0) 01/05/21 05:21 Chloride 107.4 mmol/L (98-107) H 01/05/21 05:21 Carbon Dioxide 23 mmol/L (22-30) 01/05/21 05:21 Anion Gap 14 mmol/L 01/05/21 05:21 BUN 18 mg/dL (7-17) H 01/05/21 05:21 Creatinine 0.6 mg/dL (0.6-1.2) 01/05/21 05:21 Estimated GFR > 60 ml/min 01/05/21 05:21 BUN/Creatinine Ratio 30 % 01/05/21 05:21 Glucose 95 mg/dL (65-100) 01/05/21 05:21 Calcium 8.9 mg/dL (8.4-10.2) 01/05/21 05:21 Total Bilirubin 0.90 mg/dL (0.1-1.2) 01/04/21 19: Direct Bilirubin 0.4 mg/dL (0-0.2) H 01/04/21 19:21 Indirect Bilirubin 0.5 mg/dL 01/04/21 19:21 AST 21 units/L (5-40) 01/04/21 19:21 ALT 12 units/L (7-56) 01/04/21 19:21 Alkaline Phosphatase 119 units/L (35-129) 01/04/21 19:21 Troponin T < 0.010 ng/mL (0.00-0.029) 01/05/21 05: NT-Pro-B Natriuret Pep 1810 pg/mL (0-900) H 01/04/21 19: Total Protein 6.6 g/dL (6.3-8.2) 01/04/21 19:21 Albumin 3.4 g/dL (3.9-5) L 01/04/21 19: Albumin/Globulin Ratio 1.1 % 01/04/21 19:21 Lipase 35 units/L (13-60) 01/04/21 19: TSH < 0.005 mlU/mL (0.270-4.200) L 01/05/21 10:43 Urine Color [place] (Yellow) 01/04/21 Unknown Urine Turbidity Hazy (Clear) 01/04/21 Unknown Urine pH 5.0 (5.0-7.0) 01/04/21 Unknown Ur Specific [place] 1.025 (1.003-1.030) 01/04/21 Unknown Urine Protein 100 mg/dl mg/dL (Negative) 01/04/21 Unknown Urine Glucose (UA) Neg mg/dL (Negative) 01/04/21 Unknown Urine Ketones Neg mg/dL (Negative) 01/04/21 Unknown Urine Blood Neg (Negative) 01/04/21 Unknown Urine Nitrite Neg (Negative) 01/04/21 Unknown Urine Bilirubin Neg (Negative) 01/04/21 Unknown Urine Urobilinogen 4.0 mg/dL (<2.0) 01/04/21 Unknown Ur Leukocyte Esterase Sm (Negative) 01/04/21 Unknown Urine WBC (Auto) 11.0 /HPF (0.0-6.0) H 01/04/21 Unknown Urine RBC (Auto) 5.0 /HPF (0.0-6.0) 01/04/21 Unknown U Epithel Cells (Auto) 8.0 /HPF (0-13.0) 01/04/21 Unknown Urine Bacteria (Auto) 1+ /HPF (Negative) 01/04/21 Unknown Hyaline Casts 1 /LPF 01/04/21 Unknown Urine Mucus 3+ /HPF 01/04/21 Unknown Urine Opiates Screen Negative 01/04/21 Unknown Urine Methadone Screen Negative 01/04/21 Unknown Ur Barbiturates Screen Negative 01/04/21 Unknown Ur Phencyclidine Scrn Negative 01/04/21 Unknown Ur Amphetamines Screen Negative 01/04/21 Unknown U Benzodiazepines Scrn Negative 01/04/21 Unknown Urine Cocaine Screen Negative 01/04/21 Unknown U Marijuana (THC) Screen Negative 01/04/21 Unknown Drugs of Abuse Note Disclamer 01/04/21 Unknown Microbiology: Microbiology 01/04/21 Unknown Urine,Clean Catch Urine Culture - Preliminary Bolaños/IV: Voiding Method Toilet Active Medications - Current Medications Current Medications: Generic Name Dose Route Start Last Admin Trade Name Freq PRN Reason Stop Dose Admin Acetaminophen 650 mg 01/04/21 21:48 Acetaminophen 325 Mg Tab PO Q4H PRN Pain MILD(1-3)/Fever >100.5/HAMMONDS Albuterol 2.5 mg 01/04/21 21:48 Albuterol 2.5 Mg/3 Ml Nebu IH Q3HRT PRN Shortness Of Breath Aspirin 325 mg 01/05/21 10:00 01/05/21 10:11 Aspirin 325 Mg Tab PO 325 mg QDAY VON Administration Atorvastatin Calcium 40 mg 01/04/21 22:00 01/05/21 22:31 Atorvastatin 40 Mg Tab PO 40 mg QHS VON Administration Diltiazem HCl 30 mg 01/05/21 12:00 01/06/21 06:17 Diltiazem 30 Mg Tab PO Not Given Q6HR VON Famotidine 20 mg 01/04/21 22:00 01/05/21 22:32 Famotidine 20 Mg Tab PO 20 mg BID VON Administration Furosemide 40 mg 01/06/21 10:00 Furosemide 40 Mg/4 Ml Inj IV QDAY VON Heparin Sodium (Porcine) 5,000 unit 01/05/21 06:00 01/06/21 06:18 Heparin 5,000 Unit/1 Ml Vial SUB-Q 5,000 unit Q8HR VON Administration Hydralazine HCl 10 mg 01/04/21 22:02 Hydralazine 20 Mg/1 Ml Inj IV Q6H PRN htn Ceftriaxone Sodium 1 gm in 50 mls @ 100 mls/hr 01/04/21 23:00 01/05/21 10:11 Rocephin/Ns 1 Gm/50 Ml IV 100 mls/hr Q24HR VON Administration Protocol Lisinopril 5 mg 01/05/21 10:00 01/05/21 10:11 Lisinopril 5 Mg Tab PO 5 mg QDAY VON Administration Metoprolol Tartrate 25 mg 01/04/21 22:00 01/05/21 19:05 Metoprolol Tartrate 25 Mg Tab PO 25 mg BID@0800,1700 VON Administration Morphine Sulfate 2 mg 01/04/21 21:48 Morphine 2 Mg/1 Ml Inj IV Q5MIN PRN Chest Pain unrelieved by NTG Nitroglycerin 0.4 mg 01/04/21 21:48 Nitroglycerin 0.4 Mg Tab Subl SL .Q5MIN PRN Chest Pain Ondansetron HCl 4 mg 01/04/21 21:48 Ondansetron 4 Mg/2 Ml Inj IV Q8H PRN Nausea And Vomiting Sodium Chloride 10 ml 01/04/21 22:00 01/05/21 22:32 Sodium Chloride 0.9% 10 Ml Flush Syringe IV 10 ml BID VON Administration Sodium Chloride 10 ml 01/04/21 21:48 Sodium Chloride 0.9% 10 Ml Flush Syringe IV PRN PRN LINE FLUSH Tramadol HCl 50 mg 01/04/21 21:48 01/05/21 22:31 Tramadol 50 Mg Tab PO 50 mg Q6H PRN Administration Pain, Moderate (4-6)
--- NOTE | 2021-01-06 09:12 | Progress Note ---
Assessment and Plan 1. Acute congestive systolic heart failure 2. Atrial fibrillation with a rapid ventricular response 3. COPD 4. Corpulmonale likely chronic 5. Thyrotoxicosis withpout thyriod storm Patient currently still in atrial fibrillation with a rapid ventricular response. Etiology for her acute CHF. Plan. Patient is currently stable and labs reveal evidence of hyperthyroidism. Patient with thyrotoxicosis without thyroid storm probably etiology of her underlying atrial fibrillation. Patient patient will be started on Inderal.discontinue Metoprolol with full IV anticoagulation with Heparin. Marginal BP noted an diuretic dose frequency will be reduced. Subjective Date of service: 01/06/21 Principal diagnosis: Atrial Fib, CHF Interval history: No specific cardiac complains Objective Vital Signs Temp Pulse Pulse Resp Resp BP Pulse Ox 01/06/21 07:51 98.0 F 122 H 18 103/62 92 01/06/21 06:17 122 H 98/60 01/06/21 06:16 122 H 92/51 01/06/21 03:46 97.5 F L 87 17 98/60 93 01/06/21 02:49 96 01/06/21 00:00 129 H 98 01/05/21 23:36 97.6 F 116 H 16 92/52 94 01/05/21 22:31 20 01/05/21 20:21 118 H 20 94 01/05/21 19:35 98.1 F 106 H 16 112/64 98 01/05/21 16:57 98.7 F 122 H 18 92/51 91 01/05/21 16:00 122 H 01/05/21 14:00 97.5 F L 119 H 01/05/21 13:54 119 H 92/48 01/05/21 13:31 99 H 22 92/48 95 01/05/21 13:11 126 H 20 01/05/21 12:41 88 01/05/21 12:00 96 01/05/21 10:15 125 H 101/60 01/05/21 10:11 125 H 101/60 01/05/21 09:14 118 H 20 96 - Physical Examination HEENT: Positive: PERRL, Normocephaly, Mucus Membranes Moist Neck: Positive: neck supple, trachea midline. Negative: JVD/HJR Cardiac: Positive: irregularly irregular, S1/S2, PMI, Laterally Displaced. Negative: S3 Lungs: Positive: clear to auscultation, No Wheeze, Rales, Rhonchi Neuro: Positive: Grossly Intact Abdomen: Positive: Unremarkable, Soft Extremities: Absent: edema - Telemetry EKG Rhythm: Atrial Fibrillation
[2021-01-06] MEDS: METOPROLOL TARTRATE 25 MG TAB PO SCH (10:35)
[2021-01-06] MEDS: ENOXAPARIN 100 MG/1 ML INJ SUB-Q SCH ×2 (10:39→23:21)
[2021-01-06] MEDS: LISINOPRIL 5 MG TAB PO SCH ×2 (10:39→10:43)
[2021-01-06] MEDS: FAMOTIDINE 20 MG TAB PO SCH ×2 (10:39→23:20)
[2021-01-06] MEDS: ASPIRIN 325 MG TAB PO SCH (10:39)
[2021-01-06] MEDS: cefTRIAXone/NS 1 GM/50 ML 1 GM/50 ML BAG IV SCH (10:39)
--- NOTE | 2021-01-06 10:48 | Ultrasound Report ---
ULTRASOUND THYROID INDICATION / CLINICAL INFORMATION: Hyperthyroidism. COMPARISON: None available. FINDINGS: RIGHT LOBE: Size (cm) = 2.6 x 2.3 x 1.8 cm LEFT LOBE: Size (cm) = 3.4 x 1.5 x 1.8 cm ISTHMUS: Thickness (cm) = 0.44 cm APPEARANCE: Mildly heterogeneous. SMALL NODULES < 1 cm: 3 subcentimeter cystic nodules in the right lobe and one subcentimeter cystic n odule in the left lobe are characteristic of colloid cysts. There are 2 small uniformly hyperechoic s olid nodules in the lower pole the right lobe measuring less than 1 cm. NODULES >= 1 cm or SUSPICIOUS FEATURES (up to 4): - NODULE # 1 - Location: Right Mid - Maximum Size (cm): 1.1 - Significant Change (>= 20% in 2 dim. & inc. >= 2mm): No prior study - Composition: Solid = 2 points - Echogenicity: Hypoechoic = 2 points - Shape: [id number] = 0 points - Margin: Smooth = 0 points - Echogenic Foci: None = 0 points - Additional Echogenic Foci: None = 0 points - Additional Findings: None. - ACR TI-RADS Score / Category = 4 points / TI-RADS 4 - No additional suspicious thyroid nodules. LYMPH NODES: No abnormal lymph nodes. PARATHYROID GLANDS: No abnormal parathyroid glands. ADDITIONAL FINDINGS: None. IMPRESSION: 1. Right Mid thyroid nodule is 1.1 cm and TI-RADS 4 (Moderately Suspicious). - Recommendation: If >=1.5 cm, then FNA. If 1.0-1.49 cm, then follow-up at 1, 2, 3, 5 years. If <1 cm , then no follow-up. 2. Small colloid cysts bilaterally. A couple of subcentimeter hyperechoic nodules in the right lobe o f the thyroid gland do not require follow-up. ACR TI-RADS Thyroid Nodule Recommendations TI-RADS 1 (0 pts) -- BENIGN. - No Fine Needle Aspirate biopsy (FNA) or follow-up. TI-RADS 2 (1-2 pts) -- NOT SUSPICIOUS. - No FNA or follow-up. TI-RADS 3 (3 pts) -- MILDLY SUSPICIOUS. - >= 2.5 cm: FNA. - 1.5-2.4 cm: Follow up at 1, 3, 5 years. - < 1.5 cm: No follow up. TI-RADS 4 (4-6 pts) -- MODERATELY SUSPICIOUS. - >= 1.5 cm: FNA. - 1.0-1.4 cm: Follow up at 1, 2, 3, 5 years. - < 1.0 cm: No follow up. TI-RADS 5 (7+ pts) -- HIGHLY SUSPICIOUS. - >= 1.0 cm: FNA. - 0.5-0.9 cm: Follow annually for 5 years. - 0.5 cm: No follow up. REFERENCE: ACR Thyroid Imaging, Reporting and Data System (TI-RADS): White Paper of the ACR TI-RADS C ommittee. J AM Ren Radiol 2017;14:587-595. NOTE: Nodules < 1 cm do not typically require follow-up or FNA unless there are suspicious features. NOTE: Nodule size maximum dimension determines whether a given lesion should be biopsied or followed. NOTE: If multiple nodules meet criteria for FNA, only the two (2) most suspicious nodules should be b iopsied. In addition, FNA of any suspicious cervical nodes should be biopsied. NOTE: Predominantly Cystic nodules and Spongiform nodules, composed predominantly (>50%) of small cys tic spaces, are considered benign (TI-RADS 1) regardless of other criteria. Signer Name: Zeke Lester MD Signed: 01/06/2021 10:44 AM Workstation Name: [id number]
--- NOTE | 2021-01-06 12:02 | Consultation ---
History of Present Illness Consult date: 01/06/21 Requesting physician: WADE BORJA Reason for consult: COPD History of present illness: 60-year-old female with no significant past medical history was brought to the emergency room because of progressive shortness of breath particularly on exertion for last 1 week. She reports some associated swelling in bilateral l ower legs. Patient denies any chest pain, fever, cough. She denies any known contact with anyone who has tested positive for COVID-19. Patient states she has not received a COVID-19 vaccine yet. She is also reporting some lower abdominal pain. Patient reports tobacco use, denies any alcohol or drug use. In the emergency room patient is found to have acute CHF exacerbation. Patient also has A. fib with RVR. D-dimer is elevated 1343.06. proBNP 1810. CT scan of the chest showed no PE, moderate acute congestive heart failure generalized anasarca She has been admitted and is on heart failure measures. However, she conitues to experience significant dyspnea, so a pulmaonry consult has been placed for probable COPD as a contributory factor to her dyspnea. Thank you. Patient was seen and examined. Vitals, labs, medications, chart and imaging reviewed. She endorse a history of cigarette smoking, 1 PPD for over 30 years. She started smoking at age 11 years. She does not carry a formal diagnosis of COPD. Past History Past Medical History: No medical history, COPD Past Surgical History: No surgical history Social history: no significant social history Family history: no significant family history Medications and Allergies Allergies Allergy/AdvReac Type Severity Reaction Status Date / Time No Known Allergies Allergy Unverified 01/04/21 18:34 Home Medications Medication Instructions Recorded Confirmed Last Taken Type No Known Home Medications [No 01/06/21 01/06/21 Unknown History Reported Home Medications] Active Meds: Active Medications Acetaminophen (Acetaminophen 325 Mg Tab) 650 mg PO Q4H PRN PRN Reason: Pain MILD(1-3)/Fever >100.5/HAMMONDS Albuterol (Albuterol 2.5 Mg/3 Ml Nebu) 2.5 mg IH Q3HRT PRN PRN Reason: Shortness Of Breath Aspirin (Aspirin 325 Mg Tab) 325 mg PO QDAY [facility] Last Admin: 01/06/21 10:39 Dose: 325 mg Documented by: Atorvastatin Calcium (Atorvastatin 40 Mg Tab) 40 mg PO QHS [facility] Last Admin: 01/05/21 22:31 Dose: 40 mg Documented by: Diltiazem HCl (Diltiazem 30 Mg Tab) 30 mg PO Q6HR [facility] Last Admin: 01/06/21 06:17 Dose: Not Given Documented by: Enoxaparin Sodium (Enoxaparin 100 Mg/1 Ml Inj) 70 mg 1 mg/kg (70 mg) SUB-Q Q12HR [facility]; Protocol Last Admin: 01/06/21 10:39 Dose: 70 mg Documented by: Famotidine (Famotidine 20 Mg Tab) 20 mg PO BID [facility] Last Admin: 01/06/21 10:39 Dose: 20 mg Documented by: Furosemide (Furosemide 40 Mg/4 Ml Inj) 40 mg IV QDAY [facility] Last Admin: 01/06/21 10:40 Dose: 40 mg Documented by: Hydralazine HCl (Hydralazine 20 Mg/1 Ml Inj) 10 mg IV Q6H PRN PRN Reason: htn Ceftriaxone Sodium (Rocephin/Ns 1 Gm/50 Ml) 1 gm in 50 mls @ 100 mls/hr IV Q24HR [facility]; Protocol Stop: 01/10/21 10:29 Last Admin: 01/06/21 10:39 Dose: 100 mls/hr Documented by: Lisinopril (Lisinopril 5 Mg Tab) 5 mg PO QDAY [facility] Last Admin: 01/06/21 10:43 Dose: Not Given Documented by: Morphine Sulfate (Morphine 2 Mg/1 Ml Inj) 2 mg IV Q5MIN PRN PRN Reason: Chest Pain unrelieved by NTG Nitroglycerin (Nitroglycerin 0.4 Mg Tab Subl) 0.4 mg SL .Q5MIN PRN PRN Reason: Chest Pain Ondansetron HCl (Ondansetron 4 Mg/2 Ml Inj) 4 mg IV Q8H PRN PRN Reason: Nausea And Vomiting Propranolol HCl (Propranolol 10 Mg Tab) 10 mg PO Q6H [facility] Sodium Chloride (Sodium Chloride 0.9% 10 Ml Flush Syringe) 10 ml IV BID [facility] Last Admin: 01/06/21 10:40 Dose: 10 ml Documented by: Sodium Chloride (Sodium Chloride 0.9% 10 Ml Flush Syringe) 10 ml IV PRN PRN PRN Reason: LINE FLUSH Tramadol HCl (Tramadol 50 Mg Tab) 50 mg PO Q6H PRN PRN Reason: Pain, Moderate (4-6) Last Admin: 01/05/21 22:31 Dose: 50 mg Documented by: Physical Examination Vital signs: Vital Signs Temp Pulse Resp BP Pulse Ox 98.4 F 187 H 24 139/81 95 01/04/21 18:32 01/04/21 18:32 01/04/21 18:32 01/04/21 18:32 01/04/21 18:32 General appearance: appears uncomfortable, other (mild respiratory distress on supplemental oxygen) Eyes: non-icteric ENT: oropharynx erythematous Neck: no JVD Effort: mildly labored Ascultation: Bilateral: diminished breath sounds, wheezes Cardiovascular: regular rate and rhythm, other (S1,S2) Gastrointestinal: normoactive bowel sounds, soft, non-tender Integumentary: normal Extremities: no cyanosis, no edema, pulses normal normal mental status, non-focal exam, pupils equal and round, CN II-XII normal, motor strength normal and mood appropriate, anxious Results - Laboratory Findings CBC and BMP: 01/05/21 05:21 01/05/21 05:21 PT/INR, D-dimer PT 15.7 Sec. (12.2-14.9) H 01/04/21 19:21 INR 1.25 (0.87-1.13) H 01/04/21 19:21 D-Dimer 1343.06 ng/mlDDU (0-234) H 01/04/21 19:21 Abnormal lab findings: Abnormal Labs 01/04/21 01/04/21 01/04/21 19:21 19:21 19:21 MCH 27 L RDW Lymph % (Auto) [place] % (Auto) 8.3 H PT 15.7 H INR 1.25 H D-Dimer 1343.06 H Chloride Carbon Dioxide 21 L BUN Glucose 135 H Direct Bilirubin NT-Pro-B Natriuret Pep 1810 H Albumin TSH Free T4 Urine WBC (Auto) 01/04/21 01/04/21 01/04/21 19:21 22:32 22:32 MCH 27 L RDW 15.4 H Lymph % (Auto) [place] % (Auto) 8.0 H PT INR D-Dimer Chloride Carbon Dioxide BUN Glucose 112 H Direct Bilirubin 0.4 H NT-Pro-B Natriuret Pep Albumin 3.4 L TSH Free T4 Urine WBC (Auto) 01/04/21 01/05/21 01/05/21 Unknown 05:21 05:21 MCH 27 L RDW Lymph % (Auto) 44.1 H [place] % (Auto) 9.5 H PT INR D-Dimer Chloride 107.4 H Carbon Dioxide BUN 18 H Glucose Direct Bilirubin NT-Pro-B Natriuret Pep Albumin TSH Free T4 Urine WBC (Auto) 11.0 H 01/05/21 01/06/21 10:43 09:25 MCH RDW Lymph % (Auto) [place] % (Auto) PT INR D-Dimer Chloride Carbon Dioxide BUN Glucose Direct Bilirubin NT-Pro-B Natriuret Pep Albumin TSH < 0.005 L Free T4 2.76 H Urine WBC (Auto) - Diagnostic Findings Chest x-ray: image reviewed CT scan - chest: image reviewed (Bilateral pleural effusions, alveolar edema, no PE) Assessment and Plan Probable COPD Tobacco use disorder/Nicotine dependence Bilateral pleural effusions [place] New onset of congestive heart failure, EF 35-40% New onset atrial fibrillation with RVR UTI (urinary tract infection) -Titrate supplemental oxygen to keep SpO2 88-90% -Bronchodilators, add LAMA -Short course of steroids -Smoking cessation counselling done at the bed side for 10 minutes. She is willing to quit -Continue with heart failure measures -VTE prophylaxis- Heparin -Stress ulcer prophylaxis while she is on steroids. -The pleural effusion should improve with the treatment of heart failure. Will need follow up of CXR to monitor effusions. -Monitor hemodynamics, renal function and electrolyte profile while she is on diuretics. -ABG as clinically indicated -Home oxygen evaluation on discharge -Outpatient pulmonary follow up to evaluate pulmonary physiology and optimize COPD therapies. Thank you for the consult. Discussed care plan with the patient. Please do not hesitate to call with any questions or concerns
[2021-01-06] MEDS: PROPRANOLOL 10 MG TAB PO SCH ×3 (12:11→23:20)
[2021-01-06] MEDS: IPRATROPIUM 0.02% NEBU 2.5 ML IH SCH ×2 (15:23→19:40)
[2021-01-06] MEDS: predniSONE 10 MG TAB PO SCH (17:17)
[2021-01-07] MEDS: PROPRANOLOL 10 MG TAB PO SCH ×4 (04:25→21:19)
[2021-01-07] MEDS: dilTIAZem 30 MG TAB PO SCH ×3 (07:21→17:45)
[2021-01-07] MEDS: methIMAzole 5 MG TAB PO SCH (09:06)
[2021-01-07] MEDS: ASPIRIN 325 MG TAB PO SCH (09:06)
[2021-01-07] MEDS: FAMOTIDINE 20 MG TAB PO SCH ×2 (09:06→21:20)
[2021-01-07] MEDS: ENOXAPARIN 80 MG/0.8 ML INJ SUB-Q SCH ×2 (09:07→21:20)
[2021-01-07] MEDS: FUROSEMIDE 40 MG/4 ML INJ IV SCH (09:07)
[2021-01-07] MEDS: predniSONE 10 MG TAB PO SCH (09:07)
[2021-01-07] MEDS: traMADol 50 MG TAB PO PRN (09:07)
--- NOTE | 2021-01-07 09:17 | Progress Note ---
Assessment and Plan Probable COPD Tobacco use disorder/Nicotine dependence Bilateral pleural effusions [place] New onset of congestive heart failure, EF 35-40% New onset atrial fibrillation with RVR UTI (urinary tract infection) - Continue to titrate supplemental oxygen to keep SpO2 88-90% -Continue with LABA/LAMA -Short course of steroids, 5 day course. I do not wnat long courses because she has CHF -Smoking cessation counselling done at the bed side for 10 minutes. She is willing to quit -Continue with heart failure measures -VTE prophylaxis- Heparin -Stress ulcer prophylaxis while she is on steroids. -The pleural effusion should improve with the treatment of heart failure. Will need follow up of CXR to monitor effusions in 24 hours -Monitor hemodynamics, renal function and electrolyte profile while she is on diuretics. -ABG as clinically indicated -Home oxygen evaluation on discharge -Outpatient pulmonary follow up to evaluate pulmonary physiology and optimize COPD therapies. Subjective Date of service: 01/07/21 Principal diagnosis: Atrial Fib, CHF Interval history: Follow up for COPD, tobacco use disorder, CHF Seen and examined. Vitals, labs, medications, chart and imaging reviewed. On going shortness of breath, but she states it feels a little better, no fevers, no nausea or vomiting. NO chest pain. Resting peacefully in bed on supplemental oxygen. Discussed with respiratory and nursing staff Objective Vital Signs - 12hr 01/06/21 01/06/21 01/06/21 23:19 23:20 23:25 Temperature 97.8 F Pulse Rate 86 86 132 H Respiratory 18 Rate Blood Pressure 97/55 97/55 95/78 O2 Sat by Pulse 95 Oximetry 01/07/21 01/07/21 01/07/21 03:39 04:25 07:21 Temperature 97.3 F L Pulse Rate 91 H 98 H 115 H Respiratory 18 Rate Blood Pressure 102/58 98/58 125/72 O2 Sat by Pulse 92 Oximetry Constitutional: appears uncomfortable, other (mild respiratory distress on supplemental oxygen) Eyes: non-icteric ENT: oropharynx erythematous Neck: no JVD Effort: mildly labored Ascultation: Bilateral: diminished breath sounds, wheezes Cardiovascular: regular rate and rhythm, other (S1,S2) Gastrointestinal: normoactive bowel sounds, soft, non-tender Integumentary: normal Extremities: no cyanosis, no edema, pulses normal Neurologic: normal mental status, non-focal exam, pupils equal and round, CN II- XII normal, motor strength normal and Psychiatric: mood appropriate, affect normal CBC and BMP: 01/05/21 05:01/05/21 05:21 ABG, PT/INR, D-dimer: ABG ABG pH 7.400 (7.320-7.450) 01/06/21 15:14 POC ABG pCO2 38.4 mmHg (32.0-48.0) 01/06/21 15:14 POC ABG pO2 60.3 mmHg (83-108) L 01/06/21 15:14 POC ABG HCO3 23.3 01/06/21 15:14 ABG O2 Saturation 90.1 (0-100) 01/06/21 15:14 PT/INR, D-dimer PT 15.7 Sec. (12.2-14.9) H 01/04/21 19:21 INR 1.25 (0.87-1.13) H 01/04/21 19:21 D-Dimer 1343.06 ng/mlDDU (0-234) H 01/04/21 19:21 Abnormal lab findings: Abnormal Labs 01/04/21 01/04/21 01/04/21 19:21 19:21 19:21 MCH 27 L RDW Lymph % (Auto) [place] % (Auto) 8.3 H PT 15.7 H INR 1.25 H D-Dimer 1343.06 H POC ABG pO2 ABG Hemoglobin ABG Oxyhemoglobin ABG Sodium ABG Glucose Chloride Carbon Dioxide 21 L BUN Glucose 135 H Direct Bilirubin NT-Pro-B Natriuret Pep 1810 H Albumin TSH Free T4 Arterial Blood Glucose Arterial Blood Ionized Calcium Urine WBC (Auto) 01/04/21 01/04/21 01/04/21 19:21 22:32 22:32 MCH 27 L RDW 15.4 H Lymph % (Auto) [place] % (Auto) 8.0 H PT INR D-Dimer POC ABG pO2 ABG Hemoglobin ABG Oxyhemoglobin ABG Sodium ABG Glucose Chloride Carbon Dioxide BUN Glucose 112 H Direct Bilirubin 0.4 H NT-Pro-B Natriuret Pep Albumin 3.4 L TSH Free T4 Arterial Blood Glucose Arterial Blood Ionized Calcium Urine WBC (Auto) 01/04/21 01/05/21 01/05/21 Unknown 05:21 05:21 MCH 27 L RDW Lymph % (Auto) 44.1 H [place] % (Auto) 9.5 H PT INR D-Dimer POC ABG pO2 ABG Hemoglobin ABG Oxyhemoglobin ABG Sodium ABG Glucose Chloride 107.4 H Carbon Dioxide BUN 18 H Glucose Direct Bilirubin NT-Pro-B Natriuret Pep Albumin TSH Free T4 Arterial Blood Glucose Arterial Blood Ionized Calcium Urine WBC (Auto) 11.0 H 01/05/21 01/06/21 01/06/21 10:43 09:25 15:14 MCH RDW Lymph % (Auto) [place] % (Auto) PT INR D-Dimer POC ABG pO2 60.3 L ABG Hemoglobin 11.1 L ABG Oxyhemoglobin 89.0 L ABG Sodium 135.5 L ABG Glucose 115 H Chloride Carbon Dioxide BUN Glucose Direct Bilirubin NT-Pro-B Natriuret Pep Albumin TSH < 0.005 L Free T4 2.76 H Arterial Blood Glucose 115 H Arterial Blood Ionized Calcium 4.5 L Urine WBC (Auto) Chest x-ray: image reviewed Allied health notes reviewed: RT
--- NOTE | 2021-01-07 10:01 | Progress Note ---
Assessment and Plan Assessment and plan: 60-year-old female with no significant past medical history was brought to the emergency room because of progressive shortness of breath particularly on exertion for last 1 week. She reports some associated swelling in bilateral lower legs. Patient denies any chest pain, fever, cough. She denies any known contact with anyone who has tested positive for COVID-19. Patient states she has not received a COVID-19 vaccine yet. She is also reporting some lower abdominal pain. Patient reports tobacco use, denies any alcohol or drug use. In the emergency room patient is found to have acute CHF exacerbation. Patient also has A. fib with RVR. D-dimer is elevated 1343.06. proBNP 1810. CT scan of the chest showed no PE, moderate acute congestive heart failure generalized anasarca 01/05: Patient seen and examined resting comfortably although gets short of breath with exertion. Continue IV Lasix. Patient also on Cardizem drip for ventricular response control for A. fib and full anticoagulation. Seen by cardiology awaiting echocardiogram report and will check TSH. Recommended that the patient will be evaluated for ischemic work-up once A. fib is corrected. I did discuss extensively with the patient on tobacco use cessation she verbalized understanding and plans to quit tobacco use. She understands the risk associated with continued tobacco use considering her medical condition. She currently lives with her sister discharge she plans to obtain a primary care doctor insurance so that she can get work-up for possible underlying COPD Patient still has some hypoxia and exertional dyspnea unable to be discharged at this time needs further inpatient work-up including diuresis 01/06: Patient still with some shortness of breath on exertion atrial fibrillation not properly controlled at this time. Discussed with cardiology patient also has evidence of right heart strain with cor pulmonale. Considering her COPD diagnosis again smoking cessation was discussed for 15 minutes we will go ahead and obtain pulmonary consultation. [employer] plans to give the patient 1 dose of dig while we change the Lasix to daily and as blood pressure improves may go back up on the Cardizem for better heart rate control. In the meantime we will order a free T4 as TSH is significantly low there may be a touch of hyperthyroidism in this case and starting patient on Tapazole may be helpful if diagnosed. 01/07: Free T4 is elevated as anticipated patient started on Tapazole. Counseling provided to the patient and medication we will also check LFTs for baseline now. Again smoking cessation discussed in detail pulmonary input noted. Will defer adjustment of beta-blockers to bottle assembler. Heart rate still uncontrolled still with shortness of breath. (1) New onset of congestive heart failure Status: Acute Plan to address problem: Admit the patient to the medical telemetry. Put the patient on CHF pathway. Oxygen by nasal cannula 3 to per minute. DuoNeb by nebulizer every 4 hours as needed. Fluid restriction. Lasix 40 mg IV every 12 hours. Strict input output. Echocardiogram. Will consult cardiology for evaluation. (2) New onset atrial fibrillation Status: Acute Plan to address problem: Patient got Cardizem 20 mg IV x1 dose. We will put the patient on Lopressor 25 mg p.o. twice daily. Aspirin 325 mg p.o. daily. Lipitor 40 mg p.o. daily. Echocardiogram. Will consult cardiology for evaluation. Heparin 5000 units subcu every 8 hours (3) Atrial fibrillation with RVR Status: Acute Plan to address problem: Patient got Cardizem 20 mg IV x1 dose. We will put the patient on Lopressor 25 mg p.o. twice daily. Aspirin 325 mg p.o. daily. Lipitor 40 mg p.o. daily. Echocardiogram. Will consult cardiology for evaluation. Heparin 5000 units subcu every 8 hours (4) Tobacco abuse Status: Acute Plan to address problem: We counseled regarding quitting smoking. We put the patient on nicotine patch 7 mg transdermally daily (5) UTI (urinary tract infection) Status: Acute Plan to address problem: Rocephin 1 g IV daily. We sent the blood and urine for culture (6) presumed COPD (7) cor pulmonale (8) hyperthyroidism new diagnosis (9) DVT prophylaxis Status: Acute Plan to address problem: Heparin 5000 units subcu every 8 hours for DVT prophylaxis. Pepcid 20 mg p.o. twice daily for GI prophylaxis. Patient is a full code. History Interval history: Patient seen and examined resting comfortably although states that she gets short of breath with exertion. Still with uncontrolled A. fib denies any chest pain Hospitalist Physical - Physical exam Narrative exam: VITAL SIGNS: Reviewed. GENERAL: The patient appears normally developed, Vital signs as documented. HEAD: No signs of head trauma. EYES: Pupils are equal. Extraocular motions intact. EARS: Hearing grossly intact. MOUTH: Oropharynx is normal. NECK: No adenopathy, no JVD. CHEST: Chest with clear breath sounds bilaterally. No wheezes, rales, or rhon chi. CARDIAC: Irregularly irregular. S1 and S2, without murmurs, gallops, or rubs. VASCULAR: No Edema. Peripheral pulses normal and equal in all extremities. ABDOMEN: Soft, non tender and non distended. No rebound or guarding, and no masses palpated. Bowel Sounds normal. MUSCULOSKELETAL: Good range of motion of all major joints. Extremities without clubbing, cyanosis. 2+ pitting edema bilaterally. NEUROLOGIC EXAM: Alert and oriented x 3 No focal sensory or strength deficits. Speech normal. Follows commands. PSYCHIATRIC: Mood normal. SKIN: Some old healed wound left lower extremity. Detail exam as documented in skin assessment - Constitutional Vitals: Temp Pulse Resp BP Pulse Ox 97.3 F L 115 H 18 125/72 92 01/07/21 03:39 01/07/21 07:21 01/07/21 03:39 01/07/21 07:21 01/07/21 03:39 General appearance: Present: no acute distress, well-nourished HEART Score - HEART Score Age: 45-65 Risk factors: 1-2 risk factors Troponin: Troponin T < 0.010 ng/mL (0.00-0.029) 01/05/21 05:21 Troponin: < normal limit Results - Labs CBC & Chem 7: 01/05/21 05:21 01/05/21 05:21 Labs: Laboratory Last Values WBC 5.5 K/mm3 (4.5-11.0) 01/05/21 05: RBC 3.97 M/mm3 (3.65-5.03) 01/05/21 05: Hgb 10.7 gm/dl (10.1-14.3) 01/05/21 05: Hct 32.6 % (30.3-42.9) 01/05/21 05: MCV 82 fl (79-97) 01/05/21 05: MCH 27 pg (28-32) L 01/05/21 05:21 MCHC 33 % (30-34) 01/05/21 05: RDW 15.0 % (13.2-15.2) 01/05/21 05: Plt Count 148 K/mm3 (140-440) 01/05/21 05:21 Lymph % (Auto) 44.1 % (13.4-35.0) H 01/05/21 05:21 Real % (Auto) 9.5 % (0.0-7.3) H 01/05/21 05:21 Eos % (Auto) 0.7 % (0.0-4.3) 01/05/21 05:21 Baso % (Auto) 0.5 % (0.0-1.8) 01/05/21 05:21 Lymph # (Auto) 2.4 K/mm3 (1.2-5.4) 01/05/21 05:21 Real # (Auto) 0.5 K/mm3 (0.0-0.8) 01/05/21 05:21 Eos # (Auto) 0.0 K/mm3 (0.0-0.4) 01/05/21 05:21 Baso # (Auto) 0.0 K/mm3 (0.0-0.1) 01/05/21 05:21 Seg Neutrophils % 45.2 % (40.0-70.0) 01/05/21 05:21 Seg Neutrophils # 2.5 K/mm3 (1.8-7.7) 01/05/21 05:21 PT 15.7 Sec. (12.2-14.9) H 01/04/21 19:21 INR 1.25 (0.87-1.13) H 01/04/21 19:21 APTT 27.7 Sec. (24.2-36.6) 01/04/21 19:21 D-Dimer 1343.06 ng/mlDDU (0-234) H 01/04/21 19:21 ABG pH 7.400 (7.320-7.450) 01/06/21 15:14 POC ABG pCO2 38.4 mmHg (32.0-48.0) 01/06/21 15:14 POC ABG pO2 60.3 mmHg (83-108) L 01/06/21 15:14 POC ABG HCO3 23.3 01/06/21 15:14 ABG O2 Saturation 90.1 (0-100) 01/06/21 15:14 POC ABG Base Excess -1.3 01/06/21 15:14 ABG Hemoglobin 11.1 (12.0-17.5) L 01/06/21 15:14 ABG Oxyhemoglobin 89.0 (94-98) L 01/06/21 15:14 ABG Methemoglobin 0.3 (0.0-1.5) 01/06/21 15:14 ABG Sodium 135.5 mmol/L (136.0-145.0) L 01/06/21 15:14 ABG Potassium 3.8 mmol/L (3.40-4.50) 01/06/21 15:14 ABG Chloride 105.0 mmol/L (98-107) 01/06/21 15:14 ABG Glucose 115 mg/dL (65-95) H 01/06/21 15:14 Carboxyhemoglobin 0.9 (0.5-1.5) 01/06/21 15:14 FiO2 % 28.0 01/06/21 15:14 Sodium 140 mmol/L (137-145) 01/05/21 05:21 Potassium 4.2 mmol/L (3.6-5.0) 01/05/21 05:21 Chloride 107.4 mmol/L (98-107) H 01/05/21 05:21 Carbon Dioxide 23 mmol/L (22-30) 01/05/21 05:21 Anion Gap 14 mmol/L 01/05/21 05:21 BUN 18 mg/dL (7-17) H 01/05/21 05:21 Creatinine 0.6 mg/dL (0.6-1.2) 01/05/21 05:21 Estimated GFR > 60 ml/min 01/05/21 05:21 BUN/Creatinine Ratio 30 % 01/05/21 05:21 Glucose 95 mg/dL (65-100) 01/05/21 05:21 Calcium 8.9 mg/dL (8.4-10.2) 01/05/21 05:21 Total Bilirubin 0.90 mg/dL (0.1-1.2) 01/04/21 19:21 Direct Bilirubin 0.4 mg/dL (0-0.2) H 01/04/21 19:21 Indirect Bilirubin 0.5 mg/dL 01/04/21 19:21 AST 21 units/L (5-40) 01/04/21 19:21 ALT 12 units/L (7-56) 01/04/21 19:21 Alkaline Phosphatase 119 units/L (35-129) 01/04/21 19:21 Troponin T < 0.010 ng/mL (0.00-0.029) 01/05/21 05: NT-Pro-B Natriuret Pep 1810 pg/mL (0-900) H 01/04/21 19:21 Total Protein 6.6 g/dL (6.3-8.2) 01/04/21 19:21 Albumin 3.4 g/dL (3.9-5) L 01/04/21 19:21 Albumin/Globulin Ratio 1.1 % 01/04/21 19: Lipase 35 units/L (13-60) 01/04/21 19:26 TSH < 0.005 mlU/mL (0.270-4.200) L 01/05/21 10:43 Free T4 2.76 ng/dL (0.76-1.46) H 01/06/21 09:25 Arterial Blood Glucose 115 mg/dL (65-95) H 01/06/21 15:14 Arterial Blood Ionized Calcium 4.5 mg/dL (4.6-5.3) L 01/06/21 15:14 Urine Color Shereen (Yellow) 01/04/21 Unknown Urine Turbidity Hazy (Clear) 01/04/21 Unknown Urine pH 5.0 (5.0-7.0) 01/04/21 Unknown Ur Specific [place] 1.025 (1.003-1.030) 01/04/21 Unknown Urine Protein 100 mg/dl mg/dL (Negative) 01/04/21 Unknown Urine Glucose (UA) Neg mg/dL (Negative) 01/04/21 Unknown Urine Ketones Neg mg/dL (Negative) 01/04/21 Unknown Urine Blood Neg (Negative) 01/04/21 Unknown Urine Nitrite Neg (Negative) 01/04/21 Unknown Urine Bilirubin Neg (Negative) 01/04/21 Unknown Urine Urobilinogen 4.0 mg/dL (<2.0) 01/04/21 Unknown Ur Leukocyte Esterase Sm (Negative) 01/04/21 Unknown Urine WBC (Auto) 11.0 /HPF (0.0-6.0) H 01/04/21 Unknown Urine RBC (Auto) 5.0 /HPF (0.0-6.0) 01/04/21 Unknown U Epithel Cells (Auto) 8.0 /HPF (0-13.0) 01/04/21 Unknown Urine Bacteria (Auto) 1+ /HPF (Negative) 01/04/21 Unknown Hyaline Casts 1 /LPF 01/04/21 Unknown Urine Mucus 3+ /HPF 01/04/21 Unknown Urine Opiates Screen Negative 01/04/21 Unknown Urine Methadone Screen Negative 01/04/21 Unknown Ur Barbiturates Screen Negative 01/04/21 Unknown Ur Phencyclidine Scrn Negative 01/04/21 Unknown Ur Amphetamines Screen Negative 01/04/21 Unknown U Benzodiazepines Scrn Negative 01/04/21 Unknown Urine Cocaine Screen Negative 01/04/21 Unknown U Marijuana (THC) Screen Negative 01/04/21 Unknown Drugs of Abuse Note Disclamer 01/04/21 Unknown Coronavirus (PCR) Negative (Negative) 01/06/21 Unknown Microbiology: Microbiology 01/04/21 Unknown Urine,Clean Catch Urine Culture - Final [place]/IV: Voiding Method Toilet Active Medications - Current Medications Current Medications: Generic Name Dose Route Start Last Admin Trade Name Freq PRN Reason Stop Dose Admin Acetaminophen 650 mg 01/04/21 21:48 Acetaminophen 325 Mg Tab PO Q4H PRN Pain MILD(1-3)/Fever >100.5/HAMMONDS Albuterol 2.5 mg 01/04/21 21:48 Albuterol 2.5 Mg/3 Ml Nebu IH Q3HRT PRN Shortness Of Breath Aspirin 325 mg 01/05/21 10:00 01/07/21 09:06 Aspirin 325 Mg Tab PO 325 mg QDAY VON Administration Atorvastatin Calcium 40 mg 01/04/21 22:00 01/06/21 23:20 Atorvastatin 40 Mg Tab PO 40 mg QHS VON Administration Diltiazem HCl 30 mg 01/05/21 12:00 01/07/21 07:21 Diltiazem 30 Mg Tab PO 30 mg Q6HR VON Administration Enoxaparin Sodium 70 mg 01/07/21 10:00 01/07/21 09:07 Enoxaparin 80 Mg/0.8 Ml Inj SUB-Q 70 mg Q12HR VON Administration Famotidine 20 mg 01/04/21 22:00 01/07/21 09:06 Famotidine 20 Mg Tab PO 20 mg BID VON Administration Furosemide 40 mg 01/06/21 10:00 01/07/21 09:07 Furosemide 40 Mg/4 Ml Inj IV 40 mg QDAY VON Administration Hydralazine HCl 10 mg 01/04/21 22:02 Hydralazine 20 Mg/1 Ml Inj IV Q6H PRN htn Ceftriaxone Sodium 1 gm in 50 mls @ 100 mls/hr 01/04/21 23:00 01/06/21 10:39 Rocephin/Ns 1 Gm/50 Ml IV 01/10/21 10:29 100 mls/hr Q24HR VON Administration Protocol Ipratropium [place] 0.5 mg 01/06/21 16:00 01/06/21 19:40 Ipratropium 0.02% Nebu 2.5 Ml IH 0.5 mg QIDRT VON Administration Lisinopril 5 mg 01/05/21 10:00 01/06/21 10:43 Lisinopril 5 Mg Tab PO Not Given QDAY VON Methimazole 20 mg 01/07/21 10:00 01/07/21 09:06 Methimazole 5 Mg Tab PO 20 mg Q24HR VON Administration Morphine Sulfate 2 mg 01/04/21 21:48 Morphine 2 Mg/1 Ml Inj IV Q5MIN PRN Chest Pain unrelieved by NTG Nitroglycerin 0.4 mg 01/04/21 21:48 Nitroglycerin 0.4 Mg Tab Subl SL .Q5MIN PRN Chest Pain Ondansetron HCl 4 mg 01/04/21 21:48 Ondansetron 4 Mg/2 Ml Inj IV Q8H PRN Nausea And Vomiting Prednisone 30 mg 01/06/21 15:00 01/07/21 09:07 Prednisone 10 Mg Tab PO 01/10/21 10:01 30 mg QDAY VON Administration Propranolol HCl 10 mg 01/06/21 10:00 01/07/21 09:07 Propranolol 10 Mg Tab PO 10 mg Q6H VON Administration Sodium Chloride 10 ml 01/04/21 22:00 01/07/21 09:08 Sodium Chloride 0.9% 10 Ml Flush Syringe IV 10 ml BID VON Administration Sodium Chloride 10 ml 01/04/21 21:48 Sodium Chloride 0.9% 10 Ml Flush Syringe IV PRN PRN LINE FLUSH Tramadol HCl 50 mg 01/04/21 21:48 05/31/21 09:07 Tramadol 50 Mg Tab PO 50 mg Q6H PRN Administration Pain, Moderate (4-6)
[2021-01-07] MEDS: cefTRIAXone/NS 1 GM/50 ML 1 GM/50 ML BAG IV SCH (10:04)
[2021-01-07] MEDS: IPRATROPIUM 0.02% NEBU 2.5 ML IH SCH ×4 (10:06→21:32)
[2021-01-07] MEDS: LISINOPRIL 5 MG TAB PO SCH (10:06)
--- NOTE | 2021-01-07 10:13 | Progress Note ---
Assessment and Plan 1. Acute congestive systolic heart failure 2. Atrial fibrillation with a rapid ventricular response 3. COPD 4. Corpulmonale likely chronic 5. 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 Etiology for her acute CHF. Plan. Patient on Beta-Blo[place]ers and has been started on Methimazole. Lexiscan MPI will be done when stablized.. Subjective Date of service: 01/07/21 Principal diagnosis: Atrial Fib, CHF Interval history: No specific cardiac complains Objective Vital Signs Temp Pulse Pulse Resp Resp BP BP 01/07/21 10:07 112 H 20 01/07/21 07:21 115 H 125/72 01/07/21 04:25 98 H 98/58 01/07/21 03:39 97.3 F L 91 H 18 102/58 01/06/21 23:25 97.8 F 132 H 18 95/78 01/06/21 23:20 86 97/55 01/06/21 23:19 86 97/55 01/06/21 20:16 115 H 01/06/21 19:42 108 H 18 01/06/21 19:40 01/06/21 19:22 97.4 F L 86 16 97/55 01/06/21 17:02 97.6 F 125 H 18 102/60 01/06/21 15:37 114 H 18 01/06/21 12:00 98.7 F 76 18 104/68 Pulse Ox 01/07/21 10:07 01/07/21 07:21 01/07/21 04:25 01/07/21 03:39 92 01/06/21 23:25 95 01/06/21 23:20 01/06/21 23:19 01/06/21 20:16 01/06/21 19:42 01/06/21 19:40 95 01/06/21 19:22 91 01/06/21 17:02 94 01/06/21 15:37 01/06/21 12:00 92 - Physical Examination HEENT: Positive: PERRL, Normocephaly, Mucus Membranes Moist Neck: Positive: neck supple, trachea midline. Negative: JVD/HJR Cardiac: Positive: Irregularly Regular, S1/S2, PMI, Laterally Displaced Lungs: Positive: clear to auscultation, No Wheeze, Rales, Rhonchi Neuro: Positive: Grossly Intact Abdomen: Positive: Unremarkable, Soft Extremities: Absent: edema
[2021-01-07] MEDS: ACETAMINOPHEN 325 MG TAB PO PRN (11:56)
[2021-01-07 12:09] LABS: Albumin 3.5 g/dL (3.9-5); Bilirubin,Direct 0.3 mg/dL (0-0.2)
--- NOTE | 2021-01-07 21:29 | Electrocardiograph Report ---
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
--- NOTE | 2021-01-07 21:32 | Electrocardiograph Report ---
[facility] Test Date: 2021-01-05 Test Time: 09:48:45 Pat Name: ELYSIA ROMEO Department: Room: A472 1 Gender: F Linux Architect: SHANIA : 1960 Requested By: NANCY ZHENG Order Number: [id number] Reading MD: Raul Montejo Measurements Intervals [place] Rate: 131 P: MS: QRS: 80 QRSD: 75 T: 241 QT: 327 QTc: 490 Interpretive Statements Atrial fibrillation Nonspecific T abnormalities, lateral leads Compared to ECG 01/04/2021 18:37:06 No significant changes Electronically Signed On 01-07-2021 21:32:30 EDT by Raul Montejo
--- NOTE | 2021-01-07 21:35 | Electrocardiograph Report ---
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
[2021-01-08] MEDS: PROPRANOLOL 10 MG TAB PO SCH ×4 (04:24→21:22)
[2021-01-08] MEDS: ACETAMINOPHEN 325 MG TAB PO PRN (06:29)
[2021-01-08] MEDS: dilTIAZem 30 MG TAB PO SCH ×4 (06:35→17:22)
[2021-01-08] MEDS: IPRATROPIUM 0.02% NEBU 2.5 ML IH SCH ×4 (08:35→21:07)
[2021-01-08] MEDS: IPRATROPIUM/ALBUTEROL SULFATE 3 ML AMPUL.NEB IH SCH (08:35)
--- NOTE | 2021-01-08 10:23 | Progress Note ---
Assessment and Plan This 60 year white female admitted with shortness of breath. Patient has heavy history of smoking 1 packx 40 years. Counseled to stop smoking. denies alcohol or drug abuse. Patient complaining shortness of breath and cough even with sligh t exertion. Patient also diagnosed with CHF and atrial fibrillation. Oatient presently on 2 litres o2. O2 saturation 94%. Chest xray done 01/04/21 reported mild CHF. Patient also [facility] CTA of chest on 01.04.[address] evidence for pulmonary embolism. Moderate congestive heart failure. Generalized anasarca. Patient also diagnosed with hyperthyroidism. Patient is on Methimazole. Patient has no known drug allergies. Patient is . Has two children. Patient worked in [employer] before retired. Patient presently on Prednisone, albuterol/atrovent aerosol treatments, S/C Lovenox and famotidine and ceftriaxone. - Patient Problems (1) Tobacco abuse Current Visit: No Status: Acute Plan to address problem: Counseled to stop smoking. (2) UTI (urinary tract infection) Current Visit: No Status: Acute Plan to address problem: Patient is on ceftrioxone. (3) CHF (congestive heart failure) Current Visit: Yes Status: Acute Plan to address problem: Management as per cardiology. (4) COPD with exacerbation Current Visit: Yes Status: Acute Plan to address problem: O2 2 litres via nasal canula. Albuterol/atrovent aerosol treatments q 6 hours. Continue Prednisone, S/C Lovenox. Famotidine. Continue ceftrioxone. Counseled to stop smoking. PFTs as out patient. Subjective Date of service: 01/08/21 Principal diagnosis: Atrial Fib, CHF Interval history: This 60 year white female admitted with shortness of breath. Patient has heavy history of smoking 1 packx 40 years. Counseled to stop smoking. denies alcohol or drug abuse. Patient complaining shortness of breath and cough even with slight exertion. Patient also diagnosed with CHF and atrial fibrillation. Oatient presently on 2 litres o2. O2 saturation 94%. Chest xray done 01/04/21 reported mild CHF. Patient also [facility] CTA of chest on 01.04.[address] evidence for pulmonary embolism. Moderate congestive heart failure. Generalized anasarca. Patient also diagnosed with hyperthyroidism. Patient is on Methimazole. Patient has no known drug allergies. Patient is . Has two children. Patient worked in [employer] before retired. Patient presently on Prednisone, albuterol/atrovent aerosol treatments, S/C Lovenox and famotidine and ceftriaxone. Objective Vital Signs - 12hr 01/07/21 01/08/21 01/08/21 23:39 00:00 03:57 Temperature 98.2 F 97.9 F Pulse Rate 81 81 115 H Pulse Rate [ Anterior Bilateral Throughout] Respiratory 20 18 Rate Respiratory Rate [Anterior Bilateral Throughout] Blood Pressure 96/62 96/62 93/55 O2 Sat by Pulse 95 90 Oximetry 01/08/21 01/08/21 01/08/21 04:24 06:35 08:00 Temperature Pulse Rate 111 H 119 H Pulse Rate [ 88 Anterior Bilateral Throughout] Respiratory Rate Respiratory 18 Rate [Anterior Bilateral Throughout] Blood Pressure 122/93 O2 Sat by Pulse Oximetry 01/08/21 01/08/21 01/08/21 08:22 08:37 09:03 Temperature 97.6 F Pulse Rate 100 H 122 H Pulse Rate [ Anterior Bilateral Throughout] Respiratory 20 Rate Respiratory Rate [Anterior Bilateral Throughout] Blood Pressure 98/55 O2 Sat by Pulse 95 97 Oximetry Constitutional: alert, appears uncomfortable, other (mild respiratory distress on supplemental oxygen) Eyes: non-icteric ENT: oropharynx erythematous Neck: no JVD Effort: mildly labored Ascultation: Bilateral: diminished breath sounds, wheezes Cardiovascular: irregular rhythm, other (S1,S2) Gastrointestinal: normoactive bowel sounds, soft, non-tender Integumentary: normal Extremities: no cyanosis, no edema, pulses normal Neurologic: normal mental status, non-focal exam, pupils equal and round, CN II- XII normal, motor strength normal and Psychiatric: mood appropriate, depressed CBC and BMP: 01/05/21 05:21 01/05/21 05:21 ABG, PT/INR, D-dimer: ABG ABG pH 7.400 (7.320-7.450) 01/06/21 15:14 POC ABG pCO2 38.4 mmHg (32.0-48.0) 01/06/21 15:14 POC ABG pO2 60.3 mmHg (83-108) L 01/06/21 15:14 POC ABG HCO3 23.3 01/06/21 15:14 ABG O2 Saturation 90.1 (0-100) 01/06/21 15:14 PT/INR, D-dimer PT 15.7 Sec. (12.2-14.9) H 01/04/21 19:21 INR 1.25 (0.87-1.13) H 01/04/21 19:21 D-Dimer 1343.06 ng/mlDDU (0-234) H 01/04/21 19:21 Abnormal lab findings: Abnormal Labs 01/04/21 01/04/21 01/04/21 19:21 19:21 19:21 MCH 27 L RDW Lymph % (Auto) Robeson % (Auto) 8.3 H PT 15.7 H INR 1.25 H D-Dimer 1343.06 H POC ABG pO2 ABG Hemoglobin ABG Oxyhemoglobin ABG Sodium ABG Glucose Chloride Carbon Dioxide 21 L BUN Glucose 135 H Direct Bilirubin NT-Pro-B Natriuret Pep 1810 H Total Protein Albumin TSH Free T4 Arterial Blood Glucose Arterial Blood Ionized Calcium Urine WBC (Auto) 01/04/21 01/04/21 01/04/21 19:21 22:32 22:32 MCH 27 L RDW 15.4 H Lymph % (Auto) Robeson % (Auto) 8.0 H PT INR D-Dimer POC ABG pO2 ABG Hemoglobin ABG Oxyhemoglobin ABG Sodium ABG Glucose Chloride Carbon Dioxide BUN Glucose 112 H Direct Bilirubin 0.4 H NT-Pro-B Natriuret Pep Total Protein Albumin 3.4 L TSH Free T4 Arterial Blood Glucose Arterial Blood Ionized Calcium Urine WBC (Auto) 01/04/21 01/05/21 01/05/21 Unknown 05:21 05:21 MCH 27 L RDW Lymph % (Auto) 44.1 H Robeson % (Auto) 9.5 H PT INR D-Dimer POC ABG pO2 ABG Hemoglobin ABG Oxyhemoglobin ABG Sodium ABG Glucose Chloride 107.4 H Carbon Dioxide BUN 18 H Glucose Direct Bilirubin NT-Pro-B Natriuret Pep Total Protein Albumin TSH Free T4 Arterial Blood Glucose Arterial Blood Ionized Calcium Urine WBC (Auto) 11.0 H 01/05/21 01/06/21 01/06/21 10:43 09:25 15:14 MCH RDW Lymph % (Auto) Robeson % (Auto) PT INR D-Dimer POC ABG pO2 60.3 L ABG Hemoglobin 11.1 L ABG Oxyhemoglobin 89.0 L ABG Sodium 135.5 L ABG Glucose 115 H Chloride Carbon Dioxide BUN Glucose Direct Bilirubin NT-Pro-B Natriuret Pep Total Protein Albumin TSH < 0.005 L Free T4 2.76 H Arterial Blood Glucose 115 H Arterial Blood Ionized Calcium 4.5 L Urine WBC (Auto) 01/07/21 11:19 MCH RDW Lymph % (Auto) Robeson % (Auto) PT INR D-Dimer POC ABG pO2 ABG Hemoglobin ABG Oxyhemoglobin ABG Sodium ABG Glucose Chloride Carbon Dioxide BUN Glucose Direct Bilirubin 0.3 H NT-Pro-B Natriuret Pep Total Protein 6.1 L Albumin 3.5 L TSH Free T4 Arterial Blood Glucose Arterial Blood Ionized Calcium Urine WBC (Auto) Chest x-ray: report reviewed, image reviewed CT scan - chest: report reviewed, image reviewed Additional Studies: CHEST 1 VIEW 01/04/2021 6:16 PM INDICATION / CLINICAL INFORMATION: Difficulty breathing and right leg pain starting one week ago. Shortness of breath COMPARISON: None available. FINDINGS: SUPPORT DEVICES: None. HEART / MEDIASTINUM: The heart is mildly enlarged. LUNGS / PLEURA: Interstitial lung markings are mildly increased diffusely. T here are small bilateral pleural effusions with obscuration of the hemidiaphragms. No pneumothorax. ADDITIONAL FINDINGS: No significant additional findings. IMPRESSION: Mild congestive heart failure. CTA CHEST WITH CONTRAST 01/04/21 INDICATION / CLINICAL INFORMATION: Shortness of breath. TECHNIQUE: Axial CT images were obtained through the chest after injection of 100 cc Omnipaque 350 IV contrast. 3 plane MIP and/or 3D reconstructions were produced. All CT scans at this location are performed using CT dose reduction for ALARA by means of automated exposure control. COMPARISON: None available. FINDINGS: PULMONARY ARTERIES: Good opacification without intraluminal filling defect to suggest acute PTE. THORACIC AORTA: Mild atherosclerotic calcification without acute abnormality. HEART: Enlarged. CORONARY ARTERY CALCIFICATION: Mild. MEDIASTINUM / MEAGAN: No significant abnormality. PLEURA: Moderate bilateral effusions. No pneumothorax. LUNGS: Diffuse interstitial edema with Ina B lines. More confluent bibasilar consolidation. ADDITIONAL FINDINGS: Moderate generalized anasarca. UPPER ABDOMEN: Mild upper abdominal ascites. Reflux of contrast into the IVC. SKELETAL STRUCTURES: No significant osseous abnormality. IMPRESSION: 1. No CT evidence for pulmonary embolism. 2. Moderate congestive heart failure. Generalized anasarca.
[2021-01-08] MEDS: ENOXAPARIN 80 MG/0.8 ML INJ SUB-Q SCH ×2 (10:31→21:21)
[2021-01-08] MEDS: cefTRIAXone/NS 1 GM/50 ML 1 GM/50 ML BAG IV SCH (10:31)
[2021-01-08] MEDS: predniSONE 10 MG TAB PO SCH (10:32)
[2021-01-08] MEDS: ASPIRIN 325 MG TAB PO SCH (10:32)
[2021-01-08] MEDS: FAMOTIDINE 20 MG TAB PO SCH ×2 (10:32→21:21)
[2021-01-08] MEDS: methIMAzole 5 MG TAB PO SCH (10:32)
[2021-01-08] MEDS: LISINOPRIL 5 MG TAB PO SCH (10:33)
--- NOTE | 2021-01-08 11:01 | Progress Note ---
Assessment and Plan - Patient Problems (1) Atrial fibrillation Current Visit: Yes Status: Acute Plan to address problem: Atrial fibrillation is probably of longstanding, and may be exacerbated by the patient's severe hyperthyroidism. In addition to treatment of the thyroid disorder, we will place the patient on a rate control strategy. We will recommend long-term oral anticoagulation for stroke prophylaxis. (2) CHF (congestive heart failure) Current Visit: Yes Status: Acute Plan to address problem: Patient has decompensated congestive heart failure, moderate severity systolic left ventricular failure, and severe hyperthyroidism. In addition to management of the thyroid hyperactivity, we will initiate optimal guideline directed heart failure therapy. Subjective Date of service: 01/08/21 Principal diagnosis: Atrial Fib, CHF Interval history: Patient is comfortable, no acute distress. She remains in atrial fibrillation, with a well-controlled ventricular response. It will be recalled that she presented to the hospital with shortness of breath, found with bilateral small pleural effusions and bilateral interstitial infiltrates on her chest x-ray consistent with congestive heart failure. In addition, there was atrial fibrillation, of uncertain chronicity, which has persisted during her admission. Most significant laboratory finding is a severe hyperthyroidism, with a TSH level less than 0.005. Echocardiogram so far has revealed a moderate severity cardiomyopathy with ejection fraction reported at 35 to 40%, and moderate dilatation of the left atrium. The patient has a history of chronic alcohol abuse, but no documented cardiac history. She states that a year and half ago she was seen at [facility], with complaints of lower extremity swelling, a "racing" heart and was told that her thyroid was hyperactive. She states that she did not follow-up after discharge and was not compliant with medical therapy that she was discharged with. Her [facility] records are not available for review at this time. Objective Vital Signs Temp Pulse Pulse Resp Resp BP Pulse Ox 01/08/21 10:35 100 H 98/55 01/08/21 10:33 100 H 98/55 01/08/21 09:03 122 H 01/08/21 08:37 97 01/08/21 08:22 97.6 F 100 H 20 98/55 95 01/08/21 08:00 88 18 01/08/21 06:35 119 H 122/93 01/08/21 04:24 111 H 01/08/21 03:57 97.9 F 115 H 18 93/55 90 01/08/21 00:00 81 96/62 01/07/21 23:39 98.2 F 81 20 /62 95 01/07/21 21:48 91 01/07/21 21:32 87 13 01/07/21 21:19 112 H 01/07/21 19:21 97.7 F 113 H 18 99/65 96 01/07/21 13:35 99 H 22 - Physical Examination General: No Apparent Distress HEENT: Positive: PERRL, Normocephaly, Mucus Membranes Moist Neck: Positive: neck supple, trachea midline. Negative: JVD/HJR Cardiac: Positive: irregularly irregular Lungs: Positive: Decreased Breath Sounds Neuro: Positive: Grossly Intact Abdomen: Positive: Unremarkable, Soft Skin: Positive: Clear Extremities: Absent: edema - Labs and Meds Cardiac Enzymes 01/07/21 Range/Units 11:19 AST 15 (5-40) units/L Comprehensive Metabolic Panel 01/07/21 Range/Units 11:19 Direct Bilirubin 0.3 H (0-0.2) mg/dL Indirect Bilirubin 0.2 mg/dL AST 15 (5-40) units/L ALT 10 (7-56) units/L Alkaline Phosphatase 108 (35-129) units/L Total Protein 6.1 L (6.3-8.2) g/dL Albumin 3.5 L (3.9-5) g/dL
--- NOTE | 2021-01-08 11:14 | Progress Note ---
Assessment and Plan Assessment and plan: 60-year-old female with no significant past medical history was brought to the emergency room because of progressive shortness of breath particularly on exertion for last 1 week. She reports some associated swelling in bilateral lower legs. Patient denies any chest pain, fever, cough. She denies any known contact with anyone who has tested positive for COVID-19. Patient states she has not received a COVID-19 vaccine yet. She is also reporting some lower abdominal pain. Patient reports tobacco use, denies any alcohol or drug use. In the emergency room patient is found to have acute CHF exacerbation. Patient also has A. fib with RVR. D-dimer is elevated 1343.06. proBNP 1810. CT scan of the chest showed no PE, moderate acute congestive heart failure generalized anasarca 01/05: Patient seen and examined resting comfortably although gets short of breath with exertion. Continue IV Lasix. Patient also on Cardizem drip for ventricular response control for A. fib and full anticoagulation. Seen by cardiology awaiting echocardiogram report and will check TSH. Recommended that the patient will be evaluated for ischemic work-up once A. fib is corrected. I did discuss extensively with the patient on tobacco use cessation she verbalized understanding and plans to quit tobacco use. She understands the risk associated with continued tobacco use considering her medical condition. She currently lives with her sister discharge she plans to obtain a primary care doctor insurance so that she can get work-up for possible underlying COPD Patient still has some hypoxia and exertional dyspnea unable to be discharged at this time needs further inpatient work-up including diuresis 01/06: Patient still with some shortness of breath on exertion atrial fibrillation not properly controlled at this time. Discussed with cardiology patient also has evidence of right heart strain with cor pulmonale. Considering her COPD diagnosis again smoking cessation was discussed for 15 minutes we will go ahead and obtain pulmonary consultation. French Binding Folder plans to give the patient 1 dose of dig while we change the Lasix to daily and as blood pressure improves may go back up on the Cardizem for better heart rate control. In the meantime we will order a free T4 as TSH is significantly low there may be a touch of hyperthyroidism in this case and starting patient on Tapazole may be helpful if diagnosed. 01/07: Free T4 is elevated as anticipated patient started on Tapazole. Counseling provided to the patient and medication we will also check LFTs for baseline now. Again smoking cessation discussed in detail pulmonary input noted. Will defer adjustment of beta-blockers to wheelabrator operator. Heart rate still uncontrolled still with shortness of breath. 01/08: Following discussion with her wheelabrator operator patient now recalls admission for evaluation at [facility] and at that time there was concern about her thyroid she is a very poor historian and very poor medical compliance patient. So atrial fibrillation may actually be old and no new onset and just exacerbated with hypothyroidism. We will try to get records otherwise continue current management discussed holding parameters of medications with nursing staff. Also discussed with wheelabrator operator. Ischemic work-up deferred to wheelabrator operator (1) New onset of congestive heart failure Status: Acute Plan to address problem: Continue on CHF pathway. Oxygen by nasal cannula 3 to per minute. DuoNeb by nebulizer every 4 hours as needed. Fluid restriction. Lasix 40 mg IV every 12 hours. Strict input output. Echocardiogram. Will consult cardiology for ev aluation. (2) atrial fibrillation with RVR Status: Acute Plan to address problem: Patient got Cardizem 20 mg IV x1 dose. We will put the patient on Lopressor 25 mg p.o. twice daily. Aspirin 325 mg p.o. daily. Lipitor 40 mg p.o. daily. Echocardiogram. Will consult cardiology for evaluation. Heparin 5000 units subcu every 8 hours (3) hyperthyroidism new diagnosis (4) Tobacco abuse Status: Acute Plan to address problem: We counseled regarding quitting smoking. We put the patient on nicotine patch 7 mg transdermally daily (5) UTI (urinary tract infection) Status: Acute Plan to address problem: Rocephin 1 g IV daily. We sent the blood and urine for culture (6) presumed COPD (7) cor pulmonale/underlining cardiomyopathy (8) DVT prophylaxis Status: Acute Plan to address problem: Heparin 5000 units subcu every 8 hours for DVT prophylaxis. Pepcid 20 mg p.o. twice daily for GI prophylaxis. Patient is a full code. History Interval history: Patient seen and examined resting comfortably although states that she gets short of breath with exertion. Still with uncontrolled A. fib denies any chest pain Hospitalist Physical - Physical exam Narrative exam: VITAL SIGNS: Reviewed. GENERAL: The patient appears normally developed, Vital signs as documented. HEAD: No signs of head trauma. EYES: Pupils are equal. Extraocular motions intact. EARS: Hearing grossly intact. MOUTH: Oropharynx is normal. NECK: No adenopathy, no JVD. CHEST: Chest with clear breath sounds bilaterally. No wheezes, rales, or rhonchi. CARDIAC: Irregularly irregular. S1 and S2, without murmurs, gallops, or rubs. VASCULAR: No Edema. Peripheral pulses normal and equal in all extremities. ABDOMEN: Soft, non tender and non distended. No rebound or guarding, and no masses palpated. Bowel Sounds normal. MUSCULOSKELETAL: Good range of motion of all major joints. Extremities without clubbing, cyanosis. 2+ pitting edema bilaterally. NEUROLOGIC EXAM: Alert and oriented x 3 No focal sensory or strength deficits. Speech normal. Follows commands. PSYCHIATRIC: Mood normal. SKIN: Some old healed wound left lower extremity. Detail exam as documented in skin assessment - Constitutional Vitals: Temp Pulse Resp BP Pulse Ox 97.6 F 100 H 20 98/55 97 01/08/21 08:22 01/08/21 10:35 01/08/21 08:22 01/08/21 10:35 01/08/21 08:37 General appearance: Present: no acute distress, well-nourished HEART Score - HEART Score Age: 45-65 Risk factors: 1-2 risk factors Troponin: Troponin T < 0.010 ng/mL (0.00-0.029) 01/05/21 05:21 Troponin: < normal limit Results - Labs CBC & Chem 7: 01/05/21 05:21 01/05/21 05:21 Labs: Laboratory Last Values WBC 5.5 K/mm3 (4.5-11.0) 01/05/21 05: RBC 3.97 M/mm3 (3.65-5.03) 01/05/21 05:21 Hgb 10.7 gm/dl (10.1-14.3) 01/05/21 05: Hct 32.6 % (30.3-42.9) 01/05/21 05: MCV 82 fl (79-97) 01/05/21 05:21 MCH 27 pg (28-32) L 01/05/21 05:21 MCHC 33 % (30-34) 01/05/21 05: RDW 15.0 % (13.2-15.2) 01/05/21 05:21 Plt Count 148 K/mm3 (140-440) 01/05/21 05:21 Lymph % (Auto) 44.1 % (13.4-35.0) H 01/05/21 05:21 [place] % (Auto) 9.5 % (0.0-7.3) H 01/05/21 05:21 Eos % (Auto) 0.7 % (0.0-4.3) 01/05/21 05:21 Baso % (Auto) 0.5 % (0.0-1.8) 01/05/21 05:21 Lymph # (Auto) 2.4 K/mm3 (1.2-5.4) 01/05/21 05:21 [place] # (Auto) 0.5 K/mm3 (0.0-0.8) 01/05/21 05:21 Eos # (Auto) 0.0 K/mm3 (0.0-0.4) 01/05/21 05:21 Baso # (Auto) 0.0 K/mm3 (0.0-0.1) 01/05/21 05:21 Seg Neutrophils % 45.2 % (40.0-70.0) 01/05/21 05:21 Seg Neutrophils # 2.5 K/mm3 (1.8-7.7) 01/05/21 05:21 PT 15.7 Sec. (12.2-14.9) H 01/04/21 19:21 INR 1.25 (0.87-1.13) H 01/04/21 19:21 APTT 27.7 Sec. (24.2-36.6) 01/04/21 19:21 D-Dimer 1343.06 ng/mlDDU (0-234) H 01/04/21 19:21 ABG pH 7.400 (7.320-7.450) 01/06/21 15:14 POC ABG pCO2 38.4 mmHg (32.0-48.0) 01/06/21 15:14 POC ABG pO2 60.3 mmHg (83-108) L 01/06/21 15:14 POC ABG HCO3 23.3 01/06/21 15:14 ABG O2 Saturation 90.1 (0-100) 01/06/21 15:14 POC ABG Base Excess -1.3 01/06/21 15:14 ABG Hemoglobin 11.1 (12.0-17.5) L 01/06/21 15:14 ABG Oxyhemoglobin 89.0 (94-98) L 01/06/21 15:14 ABG Methemoglobin 0.3 (0.0-1.5) 01/06/21 15:14 ABG Sodium 135.5 mmol/L (136.0-145.0) L 01/06/21 15:14 ABG Potassium 3.8 mmol/L (3.40-4.50) 01/06/21 15:14 ABG Chloride 105.0 mmol/L (98-107) 01/06/21 15:14 ABG Glucose 115 mg/dL (65-95) H 01/06/21 15:14 Carboxyhemoglobin 0.9 (0.5-1.5) 01/06/21 15:14 FiO2 % 28.0 01/06/21 15:14 Sodium 140 mmol/L (137-145) 01/05/21 05:21 Potassium 4.2 mmol/L (3.6-5.0) 01/05/21 05:21 Chloride 107.4 mmol/L (98-107) H 01/05/21 05:21 Carbon Dioxide 23 mmol/L (22-30) 01/05/21 05:21 Anion Gap 14 mmol/L 01/05/21 05:21 BUN 18 mg/dL (7-17) H 01/05/21 05:21 Creatinine 0.6 mg/dL (0.6-1.2) 01/05/21 05:21 Estimated GFR > 60 ml/min 01/05/21 05:21 BUN/Creatinine Ratio 30 % 01/05/21 05:21 Glucose 95 mg/dL (65-100) 01/05/21 05:21 Calcium 8.9 mg/dL (8.4-10.2) 01/05/21 05:21 Total Bilirubin 0.50 mg/dL (0.1-1.2) 01/07/21 11:19 Direct Bilirubin 0.3 mg/dL (0-0.2) H 01/07/21 11:19 Indirect Bilirubin 0.2 mg/dL 01/07/21 11:19 AST 15 units/L (5-40) 01/07/21 11:19 ALT 10 units/L (7-56) 01/07/21 11:19 Alkaline Phosphatase 108 units/L (35-129) 01/07/21 11:19 Troponin T < 0.010 ng/mL (0.00-0.029) 01/05/21 05:21 NT-Pro-B Natriuret Pep 1810 pg/mL (0-900) H 01/04/21 19:21 Total Protein 6.1 g/dL (6.3-8.2) L 01/07/21 11:19 Albumin 3.5 g/dL (3.9-5) L 01/07/21 11:19 Albumin/Globulin Ratio 1.3 % 01/07/21 11:19 Lipase 35 units/L (13-60) 01/04/21 19:26 TSH < 0.005 mlU/mL (0.270-4.200) L 01/05/21 10:43 Free T4 2.76 ng/dL (0.76-1.46) H 01/06/21 09:25 Arterial Blood Glucose 115 mg/dL (65-95) H 01/06/21 15:14 Arterial Blood Ionized Calcium 4.5 mg/dL (4.6-5.3) L 01/06/21 15:14 Urine Color Shereen (Yellow) 01/04/21 Unknown Urine Turbidity Hazy (Clear) 01/04/21 Unknown Urine pH 5.0 (5.0-7.0) 01/04/21 Unknown Ur Specific [place] 1.025 (1.003-1.030) 01/04/21 Unknown Urine Protein 100 mg/dl mg/dL (Negative) 01/04/21 Unknown Urine Glucose (UA) Neg mg/dL (Negative) 01/04/21 Unknown Urine Ketones Neg mg/dL (Negative) 01/04/21 Unknown Urine Blood Neg (Negative) 01/04/21 Unknown Urine Nitrite Neg (Negative) 01/04/21 Unknown Urine Bilirubin Neg (Negative) 01/04/21 Unknown Urine Urobilinogen 4.0 mg/dL (<2.0) 01/04/21 Unknown Ur Leukocyte Esterase Sm (Negative) 01/04/21 Unknown Urine WBC (Auto) 11.0 /HPF (0.0-6.0) H 01/04/21 Unknown Urine RBC (Auto) 5.0 /HPF (0.0-6.0) 01/04/21 Unknown U Epithel Cells (Auto) 8.0 /HPF (0-13.0) 01/04/21 Unknown Urine Bacteria (Auto) 1+ /HPF (Negative) 01/04/21 Unknown Hyaline Casts 1 /LPF 01/04/21 Unknown Urine Mucus 3+ /HPF 01/04/21 Unknown Urine Opiates Screen Negative 01/04/21 Unknown Urine Methadone Screen Negative 01/04/21 Unknown Ur Barbiturates Screen Negative 01/04/21 Unknown Ur Phencyclidine Scrn Negative 01/04/21 Unknown Ur Amphetamines Screen Negative 01/04/21 Unknown U Benzodiazepines Scrn Negative 01/04/21 Unknown Urine Cocaine Screen Negative 01/04/21 Unknown U Marijuana (THC) Screen Negative 01/04/21 Unknown Drugs of Abuse Note Disclamer 01/04/21 Unknown Coronavirus (PCR) Negative (Negative) 01/06/21 Unknown Bolaños/IV: Voiding Method Toilet Active Medications - Current Medications Current Medications: Generic Name Dose Route Start Last Admin Trade Name Freq PRN Reason Stop Dose Admin Acetaminophen 650 mg 01/04/21 21:48 01/08/21 06:29 Acetaminophen 325 Mg Tab PO 650 mg Q4H PRN Administration Pain MILD(1-3)/Fever >100.5/HAMMONDS Albuterol 2.5 mg 01/04/21 21:48 Albuterol 2.5 Mg/3 Ml Nebu IH Q3HRT PRN Shortness Of Breath Aspirin 325 mg 01/05/21 10:00 01/08/21 10:32 Aspirin 325 Mg Tab PO 325 mg QDAY VON Administration Atorvastatin Calcium 40 mg 01/04/21 22:00 01/07/21 21:20 Atorvastatin 40 Mg Tab PO 40 mg QHS VON Administration Diltiazem HCl 30 mg 01/05/21 12:00 01/08/21 06:35 Diltiazem 30 Mg Tab PO 30 mg Q6HR VON Administration Enoxaparin Sodium 70 mg 01/07/21 10:00 01/08/21 10:31 Enoxaparin 80 Mg/0.8 Ml Inj SUB-Q 70 mg Q12HR VON Administration Famotidine 20 mg 01/04/21 22:00 01/08/21 10:32 Famotidine 20 Mg Tab PO 20 mg BID VON Administration Furosemide 40 mg 01/06/21 10:00 01/07/21 09:07 Furosemide 40 Mg/4 Ml Inj IV 40 mg QDAY VON Administration Hydralazine HCl 10 mg 01/04/21 22:02 Hydralazine 20 Mg/1 Ml Inj IV Q6H PRN htn Ceftriaxone Sodium 1 gm in 50 mls @ 100 mls/hr 01/04/21 23:00 01/08/21 10:31 Rocephin/Ns 1 Gm/50 Ml IV 01/10/21 10:29 100 mls/hr Q24HR VON Administration Protocol Ipratropium Simms 0.5 mg 01/06/21 16:00 01/08/21 08:35 Ipratropium 0.02% Nebu 2.5 Ml IH 0.5 mg QIDRT VON Administration Lisinopril 5 mg 01/05/21 10:00 01/08/21 10:33 Lisinopril 5 Mg Tab PO Not Given QDAY [facility] Methimazole 20 mg 01/09/21 07:00 Methimazole 5 Mg Tab PO 0700 [facility] Morphine Sulfate 2 mg 01/04/21 21:48 Morphine 2 Mg/1 Ml Inj IV Q5MIN PRN Chest Pain unrelieved by NTG Nitroglycerin 0.4 mg 01/04/21 21:48 Nitroglycerin 0.4 Mg Tab Subl SL .Q5MIN PRN Chest Pain Ondansetron HCl 4 mg 01/04/21 21:48 Ondansetron 4 Mg/2 Ml Inj IV Q8H PRN Nausea And Vomiting Prednisone 30 mg 01/06/21 15:00 01/08/21 10:32 Prednisone 10 Mg Tab PO 01/10/21 10:01 30 mg QDAY [facility] Administration Propranolol HCl 10 mg 01/06/21 10:00 01/08/21 10:35 Propranolol 10 Mg Tab PO 10 mg Q6H VON Administration Sodium Chloride 10 ml 01/04/21 22:00 01/08/21 10:33 Sodium Chloride 0.9% 10 Ml Flush Syringe IV 10 ml BID VON Administration Sodium Chloride 10 ml 01/04/21 21:48 Sodium Chloride 0.9% 10 Ml Flush Syringe IV PRN PRN LINE FLUSH Tramadol HCl 50 mg 01/04/21 21:48 01/07/21 09:07 Tramadol 50 Mg Tab PO 50 mg Q6H PRN Administration Pain, Moderate (4-6)
[2021-01-08] MEDS: FUROSEMIDE 40 MG/4 ML INJ IV SCH (13:35)
[2021-01-09] MEDS: dilTIAZem 30 MG TAB PO SCH ×5 (00:19→23:55)
[2021-01-09] MEDS: PROPRANOLOL 10 MG TAB PO SCH ×4 (05:14→21:27)
[2021-01-09] MEDS: ACETAMINOPHEN 325 MG TAB PO PRN (05:18)
[2021-01-09] MEDS: methIMAzole 5 MG TAB PO SCH (08:54)
[2021-01-09] MEDS: ASPIRIN 325 MG TAB PO SCH (09:00)
[2021-01-09] MEDS: ENOXAPARIN 80 MG/0.8 ML INJ SUB-Q SCH ×2 (09:00→20:59)
[2021-01-09] MEDS: FAMOTIDINE 20 MG TAB PO SCH ×2 (09:00→20:59)
[2021-01-09] MEDS: cefTRIAXone/NS 1 GM/50 ML 1 GM/50 ML BAG IV SCH (09:01)
[2021-01-09] MEDS: predniSONE 10 MG TAB PO SCH (09:01)
[2021-01-09] MEDS: LISINOPRIL 5 MG TAB PO SCH (09:08)
[2021-01-09] MEDS: FUROSEMIDE 40 MG/4 ML INJ IV SCH (09:08)
[2021-01-09] MEDS: IPRATROPIUM 0.02% NEBU 2.5 ML IH SCH ×4 (09:47→20:21)
--- NOTE | 2021-01-09 11:20 | Progress Note ---
<TEDMADISONCASSIUS - Last Filed: 01/09/21 11:16> Assessment and Plan Atrial fibrillation, uncertain duration likely exacerbated by the patient's severe hyperthyroidism. Acute congestive heart failure Echocardiogram revealed a cardiomyopathy with ejection fraction reported at 35-40%, and moderate dilatation of the left atrium. Severe hyperthyroidism TSH level less than 0.005. Continue medical therapy for decompensated heart failure and atrial fibrillation that persists. Management of thyroid hyperactivity as per primary team. Subjective Date of service: 01/09/21 Principal diagnosis: Atrial Fib, CHF Interval history: Patient reports shortness of breath with minimal exertion. Currently, telemetry shows atrial fibrillation with rate 108. Objective Vital Signs Temp Pulse Pulse Pulse Resp Resp BP 01/09/21 10:00 108 H 20 01/09/21 09:50 01/09/21 09:08 70 102/64 01/09/21 09:06 99 H 20 102/64 01/09/21 09:01 01/09/21 09:00 97 H 94/64 01/09/21 08:00 105 H 20 01/09/21 07:25 97.5 F L 97 H 20 94/64 01/09/21 05:16 115 H 111/74 01/09/21 05:14 115 H 111/74 01/09/21 03:43 98.0 F 83 18 111/74 01/09/21 00:19 125 H 121/78 01/08/21 23:31 98.4 F 69 18 121/78 01/08/21 22:00 01/08/21 21:22 123 H 111/76 01/08/21 20:00 98.5 F 50 L 18 111/76 01/08/21 17:26 128 H 101/55 01/08/21 17:22 128 H 101/55 01/08/21 17:19 101/55 01/08/21 17:16 96 H 01/08/21 15:36 98.3 F 111 H 20 113/78 01/08/21 13:40 94 H 103/68 01/08/21 13:05 103/68 01/08/21 13:00 121 H 01/08/21 12:00 98 H 18 Pulse Ox 01/09/21 10:00 97 01/09/21 09:50 95 01/09/21 09:08 01/09/21 09:06 95 01/09/21 09:01 95 01/09/21 09:00 01/09/21 08:00 01/09/21 07:25 95 01/09/21 05:16 01/09/21 05:14 01/09/21 03:43 94 01/09/21 00:19 01/08/21 23:31 95 01/08/21 22:00 98 01/08/21 21:22 01/08/21 20:00 94 01/08/21 17:26 01/08/21 17:22 01/08/21 17:19 01/08/21 17:16 93 01/08/21 15:36 91 01/08/21 13:40 01/08/21 13:05 01/08/21 13:00 01/08/21 12:00 - Physical Examination General: No Apparent Distress HEENT: Positive: PERRL Neck: Positive: neck supple Cardiac: Positive: irregularly irregular Lungs: Positive: Decreased Breath Sounds Neuro: Positive: Grossly Intact Extremities: Absent: edema <KASSANDRA STINSON Last Filed: 01/15/21 17:10> Assessment and Plan - Patient Problems (1) Atrial fibrillation Status: Acute (2) CHF (congestive heart failure) Status: Acute (3) COPD with exacerbation Status: Acute Subjective Interval history: I SAW THIS PT & AGREE WITH THE Dx & Tx PLAN.
--- NOTE | 2021-01-09 11:44 | Progress Note ---
Assessment and Plan Assessment and plan: 60-year-old female with no significant past medical history was brought to the emergency room because of progressive shortness of breath particularly on exertion for last 1 week. She reports some associated swelling in bilateral lower legs. Patient denies any chest pain, fever, cough. She denies any known contact with anyone who has tested positive for COVID-19. Patient states she has not received a COVID-19 vaccine yet. She is also reporting some lower abdominal pain. Patient reports tobacco use, denies any alcohol or drug use. In the emergency room patient is found to have acute CHF exacerbation. Patient also has A. fib with RVR. D-dimer is elevated 1343.06. proBNP 1810. CT scan of the chest showed no PE, moderate acute congestive heart failure generalized anasarca 01/05: Patient seen and examined resting comfortably although gets short of breath with exertion. Continue IV Lasix. Patient also on Cardizem drip for ventricular response control for A. fib and full anticoagulation. Seen by cardiology awaiting echocardiogram report and will check TSH. Recommended that the patient will be evaluated for ischemic work-up once A. fib is corrected. I did discuss extensively with the patient on tobacco use cessation she verbalized understanding and plans to quit tobacco use. She understands the risk associated with continued tobacco use considering her medical condition. She currently lives with her sister discharge she plans to obtain a primary care doctor insurance so that she can get work-up for possible underlying COPD Patient still has some hypoxia and exertional dyspnea unable to be discharged at this time needs further inpatient work-up including diuresis 01/06: Patient still with some shortness of breath on exertion atrial fibrillation not properly controlled at this time. Discussed with cardiology patient also has evidence of right heart strain with cor pulmonale. Considering her COPD diagnosis again smoking cessation was discussed for 15 minutes we will go ahead and obtain pulmonary consultation. Buhr Dresser plans to give the patient 1 dose of dig while we change the Lasix to daily and as blood pressure improves may go back up on the Cardizem for better heart rate control. In the meantime we will order a free T4 as TSH is significantly low there may be a touch of hyperthyroidism in this case and starting patient on Tapazole may be helpful if diagnosed. 01/07: Free T4 is elevated as anticipated patient started on Tapazole. Counseling provided to the patient and medication we will also check LFTs for baseline now. Again smoking cessation discussed in detail pulmonary input noted. Will defer adjustment of beta-blockers to hydroelectric powerplant supervisor. Heart rate still uncontrolled still with shortness of breath. 01/08: Following discussion with her hydroelectric powerplant supervisor patient now recalls admission for evaluation at [facility] and at that time there was concern about her thyroid she is a very poor historian and very poor medical compliance patient. So atrial fibrillation may actually be old and no new onset and just exacerbated with hypothyroidism. We will try to get records otherwise continue current management discussed holding parameters of medications with nursing staff. Also discussed with hydroelectric powerplant supervisor. Ischemic work-up deferred to hydroelectric powerplant supervisor 01/09: Continue supportive care, steroids, lasix, BB, and methimazole. Reviewed records from [facility] apparently patient was seen in 2018 with thyrotoxicosis some venostasis in addition to hallucination. There was no further evidence that any treatment was started at the time. Unfortunately patient continues to smoke. There was also no documentation of for any psych evaluation. Patient does not exhibit any psychiatric illness at this time or hallucination. We will continue current management to better control atrial fibrillation. (1) New onset of congestive heart failure Status: Acute Plan to address problem: Continue on CHF pathway. Oxygen by nasal cannula 3 to per minute. DuoNeb by n ebulizer every 4 hours as needed. Fluid restriction. Lasix 40 mg IV every 12 hours. Strict input output. Echocardiogram. Will consult cardiology for evaluation. (2) atrial fibrillation with RVR Status: Acute Plan to address problem: Patient got Cardizem 20 mg IV x1 dose. We will put the patient on Lopressor 25 mg p.o. twice daily. Aspirin 325 mg p.o. daily. Lipitor 40 mg p.o. daily. Echocardiogram. Will consult cardiology for evaluation. Heparin 5000 units subcu every 8 hours (3) hyperthyroidism new diagnosis (4) Tobacco abuse Status: Acute Plan to address problem: We counseled regarding quitting smoking. We put the patient on nicotine patch 7 mg transdermally daily (5) UTI (urinary tract infection) Status: Acute Plan to address problem: Rocephin 1 g IV daily. We sent the blood and urine for culture (6) presumed COPD (7) cor pulmonale/underlining cardiomyopathy (8) DVT prophylaxis Status: Acute Plan to address problem: Heparin 5000 units subcu every 8 hours for DVT prophylaxis. Pepcid 20 mg p.o. twice daily for GI prophylaxis. Patient is a full code. History Interval history: Patient seen and examined resting comfortably although states that she gets short of breath with exertion. Still with uncontrolled A. fib denies any chest pain Hospitalist Physical - Physical exam Narrative exam: VITAL SIGNS: Reviewed. GENERAL: The patient appears normally developed, Vital signs as documented. HEAD: No signs of head trauma. EYES: Pupils are equal. Extraocular motions intact. EARS: Hearing grossly intact. MOUTH: Oropharynx is normal. NECK: No adenopathy, no JVD. CHEST: Chest with wheezing breath sounds bilaterally. CARDIAC: Irregularly irregular. S1 and S2, without murmurs, gallops, or rubs. VASCULAR: No Edema. Peripheral pulses normal and equal in all extremities. ABDOMEN: Soft, non tender and non distended. No rebound or guarding, and no masses palpated. Bowel Sounds normal. MUSCULOSKELETAL: Good range of motion of all major joints. Extremities without clubbing, cyanosis. 2+ pitting edema bilaterally. NEUROLOGIC EXAM: Alert and oriented x 3 No focal sensory or strength deficits. Speech normal. Follows commands. PSYCHIATRIC: Mood Anxious. SKIN: Some old healed wound left lower extremity. Detail exam as documented in skin assessment - Constitutional Vitals: Temp Pulse Resp BP Pulse Ox 97.5 F L 108 H 20 102/64 97 01/09/21 07:25 01/09/21 10:00 01/09/21 10:00 01/09/21 09:08 01/09/21 10:00 General appearance: Present: no acute distress, well-nourished HEART Score - HEART Score Age: 45-65 Risk factors: 1-2 risk factors Troponin: Troponin T < 0.010 ng/mL (0.00-0.029) 01/05/21 05:21 Troponin: < normal limit Results - Labs CBC & Chem 7: 01/05/21 05:21 01/05/21 05:21 Labs: Laboratory Last Values WBC 5.5 K/mm3 (4.5-11.0) 01/05/21 05:21 RBC 3.97 M/mm3 (3.65-5.03) 01/05/21 05: Hgb 10.7 gm/dl (10.1-14.3) 01/05/21 05:21 Hct 32.6 % (30.3-42.9) 01/05/21 05:21 MCV 82 fl (79-97) 01/05/21 05:21 MCH 27 pg (28-32) L 01/05/21 05:21 MCHC 33 % (30-34) 01/05/21 05:21 RDW 15.0 % (13.2-15.2) 01/05/21 05:21 Plt Count 148 K/mm3 (140-440) 01/05/21 05:21 Lymph % (Auto) 44.1 % (13.4-35.0) H 01/05/21 05:21 [place] % (Auto) 9.5 % (0.0-7.3) H 01/05/21 05:21 Eos % (Auto) 0.7 % (0.0-4.3) 01/05/21 05:21 Baso % (Auto) 0.5 % (0.0-1.8) 01/05/21 05:21 Lymph # (Auto) 2.4 K/mm3 (1.2-5.4) 01/05/21 05:21 [place] # (Auto) 0.5 K/mm3 (0.0-0.8) 01/05/21 05:21 Eos # (Auto) 0.0 K/mm3 (0.0-0.4) 01/05/21 05:21 Baso # (Auto) 0.0 K/mm3 (0.0-0.1) 01/05/21 05:21 Seg Neutrophils % 45.2 % (40.0-70.0) 01/05/21 05:21 Seg Neutrophils # 2.5 K/mm3 (1.8-7.7) 01/05/21 05:21 PT 15.7 Sec. (12.2-14.9) H 01/04/21 19:21 INR 1.25 (0.87-1.13) H 01/04/21 19:21 APTT 27.7 Sec. (24.2-36.6) 01/04/21 19:21 D-Dimer 1343.06 ng/mlDDU (0-234) H 01/04/21 19:21 ABG pH 7.400 (7.320-7.450) 01/06/21 15:14 POC ABG pCO2 38.4 mmHg (32.0-48.0) 01/06/21 15:14 POC ABG pO2 60.3 mmHg (83-108) L 01/06/21 15:14 POC ABG HCO3 23.3 01/06/21 15:14 ABG O2 Saturation 90.1 (0-100) 01/06/21 15:14 POC ABG Base Excess -1.3 01/06/21 15:14 ABG Hemoglobin 11.1 (12.0-17.5) L 01/06/21 15:14 ABG Oxyhemoglobin 89.0 (94-98) L 01/06/21 15:14 ABG Methemoglobin 0.3 (0.0-1.5) 01/06/21 15:14 ABG Sodium 135.5 mmol/L (136.0-145.0) L 01/06/21 15:14 ABG Potassium 3.8 mmol/L (3.40-4.50) 01/06/21 15:14 ABG Chloride 105.0 mmol/L (98-107) 01/06/21 15:14 ABG Glucose 115 mg/dL (65-95) H 01/06/21 15:14 Carboxyhemoglobin 0.9 (0.5-1.5) 01/06/21 15:14 FiO2 % 28.0 01/06/21 15:14 Sodium 140 mmol/L (137-145) 01/05/21 05:21 Potassium 4.2 mmol/L (3.6-5.0) 01/05/21 05:21 Chloride 107.4 mmol/L (98-107) H 01/05/21 05:21 Carbon Dioxide 23 mmol/L (22-30) 01/05/21 05:21 Anion Gap 14 mmol/L 01/05/21 05:21 BUN 18 mg/dL (7-17) H 01/05/21 05:21 Creatinine 0.6 mg/dL (0.6-1.2) 01/05/21 05:21 Estimated GFR > 60 ml/min 01/05/21 05:21 BUN/Creatinine Ratio 30 % 01/05/21 05:21 Glucose 95 mg/dL (65-100) 01/05/21 05:21 Calcium 8.9 mg/dL (8.4-10.2) 01/05/21 05:21 Total Bilirubin 0.50 mg/dL (0.1-1.2) 01/07/21 11:19 Direct Bilirubin 0.3 mg/dL (0-0.2) H 01/07/21 11:19 Indirect Bilirubin 0.2 mg/dL 01/07/21 11:19 AST 15 units/L (5-40) 01/07/21 11:19 ALT 10 units/L (7-56) 01/07/21 11:19 Alkaline Phosphatase 108 units/L (35-129) 01/07/21 11:19 Troponin T < 0.010 ng/mL (0.00-0.029) 01/05/21 05: NT-Pro-B Natriuret Pep 1810 pg/mL (0-900) H 01/04/21 19:21 Total Protein 6.1 g/dL (6.3-8.2) L 01/07/21 11:19 Albumin 3.5 g/dL (3.9-5) L 01/07/21 11:19 Albumin/Globulin Ratio 1.3 % 01/07/21 11:19 Lipase 35 units/L (13-60) 01/04/21 19:26 TSH < 0.005 mlU/mL (0.270-4.200) L 01/05/21 10:43 Free T4 2.76 ng/dL (0.76-1.46) H 01/06/21 09:25 Arterial Blood Glucose 115 mg/dL (65-95) H 01/06/21 15:14 Arterial Blood Ionized Calcium 4.5 mg/dL (4.6-5.3) L 01/06/21 15:14 Urine Color Shereen (Yellow) 01/04/21 Unknown Urine Turbidity Hazy (Clear) 01/04/21 Unknown Urine pH 5.0 (5.0-7.0) 01/04/21 Unknown Ur Specific [place] 1.025 (1.003-1.030) 01/04/21 Unknown Urine Protein 100 mg/dl mg/dL (Negative) 01/04/21 Unknown Urine Glucose (UA) Neg mg/dL (Negative) 01/04/21 Unknown Urine Ketones Neg mg/dL (Negative) 01/04/21 Unknown Urine Blood Neg (Negative) 01/04/21 Unknown Urine Nitrite Neg (Negative) 01/04/21 Unknown Urine Bilirubin Neg (Negative) 01/04/21 Unknown Urine Urobilinogen 4.0 mg/dL (<2.0) 01/04/21 Unknown Ur Leukocyte Esterase Sm (Negative) 01/04/21 Unknown Urine WBC (Auto) 11.0 /HPF (0.0-6.0) H 01/04/21 Unknown Urine RBC (Auto) 5.0 /HPF (0.0-6.0) 01/04/21 Unknown U Epithel Cells (Auto) 8.0 /HPF (0-13.0) 01/04/21 Unknown Urine Bacteria (Auto) 1+ /HPF (Negative) 01/04/21 Unknown Hyaline Casts 1 /LPF 01/04/21 Unknown Urine Mucus 3+ /HPF 01/04/21 Unknown Urine Opiates Screen Negative 01/04/21 Unknown Urine Methadone Screen Negative 01/04/21 Unknown Ur Barbiturates Screen Negative 01/04/21 Unknown Ur Phencyclidine Scrn Negative 01/04/21 Unknown Ur Amphetamines Screen Negative 01/04/21 Unknown U Benzodiazepines Scrn Negative 01/04/21 Unknown Urine Cocaine Screen Negative 01/04/21 Unknown U Marijuana (THC) Screen Negative 01/04/21 Unknown Drugs of Abuse Note Disclamer 01/04/21 Unknown Coronavirus (PCR) Negative (Negative) 01/06/21 Unknown [place]/IV: Voiding Method Toilet Active Medications - Current Medications Current Medications: Generic Name Dose Route Start Last Admin Trade Name Freq PRN Reason Stop Dose Admin Acetaminophen 650 mg 01/04/21 21:48 01/09/21 05:18 Acetaminophen 325 Mg Tab PO 650 mg Q4H PRN Administration Pain MILD(1-3)/Fever >100.5/HAMMONDS Albuterol 2.5 mg 01/04/21 21:48 Albuterol 2.5 Mg/3 Ml Nebu IH Q3HRT PRN Shortness Of Breath Aspirin 325 mg 01/05/21 10:00 01/09/21 09:00 Aspirin 325 Mg Tab PO 325 mg QDAY VON Administration Atorvastatin Calcium 40 mg 01/04/21 22:00 01/08/21 21:21 Atorvastatin 40 Mg Tab PO 40 mg QHS VON Administration Diltiazem HCl 30 mg 01/05/21 12:00 01/09/21 05:16 Diltiazem 30 Mg Tab PO 30 mg Q6HR VON Administration Enoxaparin Sodium 70 mg 01/07/21 10:00 01/09/21 09:00 Enoxaparin 80 Mg/0.8 Ml Inj SUB-Q 70 mg Q12HR VON Administration Famotidine 20 mg 01/04/21 22:00 01/09/21 09:00 Famotidine 20 Mg Tab PO 20 mg BID VON Administration Furosemide 40 mg 01/06/21 10:00 01/09/21 09:08 Furosemide 40 Mg/4 Ml Inj IV 40 mg QDAY VON Administration Hydralazine HCl 10 mg 01/04/21 22:02 Hydralazine 20 Mg/1 Ml Inj IV Q6H PRN htn Ceftriaxone Sodium 1 gm in 50 mls @ 100 mls/hr 01/04/21 23:00 01/09/21 09:01 Rocephin/Ns 1 Gm/50 Ml IV 01/10/21 10:29 100 mls/hr Q24HR VON Administration Protocol Ipratropium [place] 0.5 mg 01/06/21 16:00 01/09/21 09:47 Ipratropium 0.02% Nebu 2.5 Ml IH 0.5 mg QIDRT VON Administration Lisinopril 5 mg 01/05/21 10:00 01/09/21 09:08 Lisinopril 5 Mg Tab PO 5 mg QDAY VON Administration Methimazole 20 mg 01/09/21 07:00 01/09/21 08:54 Methimazole 5 Mg Tab PO 20 mg 0700 VON Administration Morphine Sulfate 2 mg 01/04/21 21:48 Morphine 2 Mg/1 Ml Inj IV Q5MIN PRN Chest Pain unrelieved by NTG Nitroglycerin 0.4 mg 01/04/21 21:48 Nitroglycerin 0.4 Mg Tab Subl SL .Q5MIN PRN Chest Pain Ondansetron HCl 4 mg 01/04/21 21:48 Ondansetron 4 Mg/2 Ml Inj IV Q8H PRN Nausea And Vomiting Prednisone 30 mg 01/06/21 15:00 01/09/21 09:01 Prednisone 10 Mg Tab PO 01/10/21 10:01 30 mg QDAY VON Administration Propranolol HCl 10 mg 01/06/21 10:00 01/09/21 09:00 Propranolol 10 Mg Tab PO 10 mg Q6H VON Administration Sodium Chloride 10 ml 01/04/21 22:00 01/09/21 09:08 Sodium Chloride 0.9% 10 Ml Flush Syringe IV 10 ml BID VON Administration Sodium Chloride 10 ml 01/04/21 21:48 Sodium Chloride 0.9% 10 Ml Flush Syringe IV PRN PRN LINE FLUSH Tramadol HCl 50 mg 01/04/21 21:48 01/07/21 09:07 Tramadol 50 Mg Tab PO 50 mg Q6H PRN Administration Pain, Moderate (4-6)
--- NOTE | 2021-01-09 14:27 | Progress Note ---
Assessment and Plan This 60 year white female admitted with shortness of breath. Patient has heavy history of smoking 1 packx 40 years. Counseled to stop smoking. denies alcohol or drug abuse. Patient complaining shortness of breath and cough even with s light exertion. Patient also diagnosed with CHF and atrial fibrillation. Patient presently on 3 litres o2. O2 saturation 97%. Patient depressed and anxious. Patient afebrile. No leukocytosis.Chest xray done 01/04/21 reported mild CHF. Patient also mcgee CTA of chest on 01.04.[address] evidence for pulmonary embolism. Moderate congestive heart failure. Generalized anasarca. Patient also diagnosed with hyperthyroidism. Patient is on Methimazole. Patient has no known drug allergies. Patient is . Has two children. Patient worked in [employer] before retired. Patient presently on Prednisone, albuterol/atrovent aerosol treatments, S/C Lovenox and famotidine and ceftriaxone. - Patient Problems (1) Tobacco abuse Current Visit: No Status: Acute Plan to address problem: Counseled to stop smoking. (2) UTI (urinary tract infection) Current Visit: No Status: Acute Plan to address problem: Patient is on ceftrioxone. (3) CHF (congestive heart failure) Current Visit: Yes Status: Acute Plan to address problem: Management as per cardiology. (4) COPD with exacerbation Current Visit: Yes Status: Acute Plan to address problem: O2 3 litres via nasal canula. Albuterol/atrovent aerosol treatments q 6 hours. Continue Prednisone, S/C Lovenox. Famotidine. Continue ceftrioxone. Counseled to stop smoking. PFTs as out patient. Subjective Date of service: 01/09/21 Principal diagnosis: Atrial Fib, CHF Interval history: This 60 year white female admitted with shortness of breath. Patient has heavy history of smoking 1 packx 40 years. Counseled to stop smoking. denies alcohol or drug abuse. Patient complaining shortness of breath and cough even with slight exertion. Patient also diagnosed with CHF and atrial fibrillation. Patient presently on 3 litres o2. O2 saturation 97%. Patient depressed and anxious. Patient afebrile. No leukocytosis.Chest xray done 01/04/21 reported mild CHF. Patient also mcgee CTA of chest on 01.04.[address] evidence for pulmonary embolism. Moderate congestive heart failure. Generalized anasarca. Patient also diagnosed with hyperthyroidism. Patient is on Methimazole. Patient has no known drug allergies. Patient is . Has two children. Patient worked in [employer] house before retired. Patient presently on Prednisone, albuterol/atrovent aerosol treatments, S/C Lovenox and famotidine and ceftriaxone. Objective Vital Signs - 12hr 01/09/21 01/09/21 01/09/21 03:43 05:14 05:16 Temperature 98.0 F Pulse Rate 83 115 H 115 H Pulse Rate [ Anterior Bilateral Throughout] Pulse Rate [ From Monitor] Respiratory 18 Rate Respiratory Rate [Anterior Bilateral Throughout] Blood Pressure 111/74 111/74 111/74 O2 Sat by Pulse 94 Oximetry 01/09/21 01/09/21 01/09/21 07:25 08:00 09:00 Temperature 97.5 F L Pulse Rate 97 H 97 H Pulse Rate [ 105 H Anterior Bilateral Throughout] Pulse Rate [ From Monitor] Respiratory 20 Rate Respiratory 20 Rate [Anterior Bilateral Throughout] Blood Pressure 94/64 94/64 O2 Sat by Pulse 95 Oximetry 01/09/21 01/09/21 01/09/21 09:01 09:06 09:08 Temperature Pulse Rate 99 H 70 Pulse Rate [ Anterior Bilateral Throughout] Pulse Rate [ From Monitor] Respiratory 20 Rate Respiratory Rate [Anterior Bilateral Throughout] Blood Pressure 102/64 102/64 O2 Sat by Pulse 95 95 Oximetry 01/09/21 01/09/21 01/09/21 09:50 10:00 12:10 Temperature Pulse Rate 68 Pulse Rate [ Anterior Bilateral Throughout] Pulse Rate [ 108 H From Monitor] Respiratory 20 Rate Respiratory Rate [Anterior Bilateral Throughout] Blood Pressure 105/67 O2 Sat by Pulse 95 97 Oximetry Constitutional: alert, appears uncomfortable, other (Patient anxious and crying.) Eyes: non-icteric ENT: oropharynx erythematous Neck: no JVD Effort: mildly labored Ascultation: Bilateral: diminished breath sounds, wheezes Cardiovascular: irregular rhythm, other (S1,S2) Gastrointestinal: normoactive bowel sounds, soft, non-tender Integumentary: normal Extremities: no cyanosis, no edema, pulses normal Neurologic: normal mental status, non-focal exam, pupils equal and round, CN II- XII normal, motor strength normal and Psychiatric: mood appropriate, depressed CBC and BMP: 01/05/21 05:21 01/05/21 05:21 ABG, PT/INR, D-dimer: ABG ABG pH 7.400 (7.320-7.450) 01/06/21 15:14 POC ABG pCO2 38.4 mmHg (32.0-48.0) 01/06/21 15:14 POC ABG pO2 60.3 mmHg (83-108) L 01/06/21 15:14 POC ABG HCO3 23.3 01/06/21 15:14 ABG O2 Saturation 90.1 (0-100) 01/06/21 15:14 PT/INR, D-dimer PT 15.7 Sec. (12.2-14.9) H 01/04/21 19: INR 1.25 (0.87-1.13) H 01/04/21 19:21 D-Dimer 1343.06 ng/mlDDU (0-234) H 01/04/21 19:21 Abnormal lab findings: Abnormal Labs 01/04/21 01/04/21 01/04/21 19:21 19:21 19:21 MCH 27 L RDW Lymph % (Auto) [place] % (Auto) 8.3 H PT 15.7 H INR 1.25 H D-Dimer 1343.06 H POC ABG pO2 ABG Hemoglobin ABG Oxyhemoglobin ABG Sodium ABG Glucose Chloride Carbon Dioxide 21 L BUN Glucose 135 H Direct Bilirubin NT-Pro-B Natriuret Pep 1810 H Total Protein Albumin TSH Free T4 Arterial Blood Glucose Arterial Blood Ionized Calcium Urine WBC (Auto) 01/04/21 01/04/21 01/04/21 19:21 22:32 22:32 MCH 27 L RDW 15.4 H Lymph % (Auto) [place] % (Auto) 8.0 H PT INR D-Dimer POC ABG pO2 ABG Hemoglobin ABG Oxyhemoglobin ABG Sodium ABG Glucose Chloride Carbon Dioxide BUN Glucose 112 H Direct Bilirubin 0.4 H NT-Pro-B Natriuret Pep Total Protein Albumin 3.4 L TSH Free T4 Arterial Blood Glucose Arterial Blood Ionized Calcium Urine WBC (Auto) 01/04/21 01/05/21 01/05/21 Unknown 05:21 05:21 MCH 27 L RDW Lymph % (Auto) 44.1 H [place] % (Auto) 9.5 H PT INR D-Dimer POC ABG pO2 ABG Hemoglobin ABG Oxyhemoglobin ABG Sodium ABG Glucose Chloride 107.4 H Carbon Dioxide BUN 18 H Glucose Direct Bilirubin NT-Pro-B Natriuret Pep Total Protein Albumin TSH Free T4 Arterial Blood Glucose Arterial Blood Ionized Calcium Urine WBC (Auto) 11.0 H 01/05/21 01/06/21 01/06/21 10:43 09:25 15:14 MCH RDW Lymph % (Auto) [place] % (Auto) PT INR D-Dimer POC ABG pO2 60.3 L ABG Hemoglobin 11.1 L ABG Oxyhemoglobin 89.0 L ABG Sodium 135.5 L ABG Glucose 115 H Chloride Carbon Dioxide BUN Glucose Direct Bilirubin NT-Pro-B Natriuret Pep Total Protein Albumin TSH < 0.005 L Free T4 2.76 H Arterial Blood Glucose 115 H Arterial Blood Ionized Calcium 4.5 L Urine WBC (Auto) 01/07/21 11:19 MCH RDW Lymph % (Auto) [place] % (Auto) PT INR D-Dimer POC ABG pO2 ABG Hemoglobin ABG Oxyhemoglobin ABG Sodium ABG Glucose Chloride Carbon Dioxide BUN Glucose Direct Bilirubin 0.3 H NT-Pro-B Natriuret Pep Total Protein 6.1 L Albumin 3.5 L TSH Free T4 Arterial Blood Glucose Arterial Blood Ionized Calcium Urine WBC (Auto)
[2021-01-09] MEDS: ALPRAZolam 0.25 MG TAB PO PRN (21:32)
[2021-01-10] MEDS: traMADol 50 MG TAB PO PRN (04:31)
[2021-01-10] MEDS: PROPRANOLOL 10 MG TAB PO SCH ×4 (04:32→21:13)
[2021-01-10] MEDS: dilTIAZem 30 MG TAB PO SCH ×3 (05:20→17:02)
[2021-01-10] MEDS: IPRATROPIUM 0.02% NEBU 2.5 ML IH SCH ×4 (07:30→21:03)
[2021-01-10] MEDS: methIMAzole 5 MG TAB PO SCH (08:29)
[2021-01-10] MEDS: ENOXAPARIN 80 MG/0.8 ML INJ SUB-Q SCH ×2 (08:59→21:14)
[2021-01-10] MEDS: cefTRIAXone/NS 1 GM/50 ML 1 GM/50 ML BAG IV SCH (08:59)
[2021-01-10] MEDS: predniSONE 10 MG TAB PO SCH (09:00)
[2021-01-10] MEDS: FAMOTIDINE 20 MG TAB PO SCH ×2 (09:00→21:13)
[2021-01-10] MEDS: FUROSEMIDE 40 MG/4 ML INJ IV SCH ×2 (09:00→21:13)
[2021-01-10] MEDS: ASPIRIN 325 MG TAB PO SCH (09:01)
[2021-01-10] MEDS: LISINOPRIL 5 MG TAB PO SCH (09:02)
[2021-01-10] MEDS: SPIRONOLACTONE 25 MG TAB PO SCH (09:04)
--- NOTE | 2021-01-10 09:21 | Progress Note ---
<AYLEEN JEAN - Last Filed: 01/10/21 09:45> Assessment and Plan Atrial fibrillation, uncertain duration likely exacerbated by the patient's severe hyperthyroidism. Acute congestive heart failure Echocardiogram revealed a cardiomyopathy with ejection fraction reported at 35-40%, and moderate dilatation of the left atrium. Severe hyperthyroidism TSH level less than 0.005. Continue medical therapy for decompensated heart failure and atrial fibrillation that persists. 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 Management of thyroid hyperactivity as per primary team. Further cardiac evaluation depends on clinical course. Subjective Date of service: 01/10/21 Principal diagnosis: Atrial Fib, CHF Interval history: Patient reports her breathing has somewhat improved. Reports she is diuresing well. Atrial fibrillation with a well controlled ventricular rate on telemetry. Objective Vital Signs Temp Pulse Pulse Pulse Resp Resp BP 01/10/21 09:04 101 H 120/74 01/10/21 09:02 101 H 120/74 01/10/21 07:52 98.4 F 54 L 18 120/74 01/10/21 04:31 20 01/10/21 04:00 107 H 01/10/21 03:29 97.7 F 63 18 106/54 01/09/21 23:16 97.5 F L 93 H 16 116/70 01/09/21 20:23 110 H 20 01/09/21 19:27 97.4 F L 55 L 18 116/78 01/09/21 17:47 99 H 113/64 01/09/21 16:37 92 H 113/64 01/09/21 15:22 97.2 F L 92 H 20 113/64 01/09/21 15:10 108 H 01/09/21 14:41 106 H 20 01/09/21 12:10 68 105/67 01/09/21 10:00 108 H 20 01/09/21 09:50 Pulse Ox 01/10/21 09:04 01/10/21 09:02 01/10/21 07:52 94 01/10/21 04:31 01/10/21 04:00 01/10/21 03:29 97 01/09/21 23:16 95 01/09/21 20:23 99 01/09/21 19:27 96 01/09/21 17:47 01/09/21 16:37 01/09/21 15:22 97 01/09/21 15:10 01/09/21 14:41 01/09/21 12:10 01/09/21 10:00 97 01/09/21 09:50 95 - Physical Examination General: No Apparent Distress HEENT: Positive: PERRL Neck: Positive: neck supple Cardiac: Positive: irregularly irregular Lungs: Positive: Decreased Breath Sounds Neuro: Positive: Grossly Intact Abdomen: Positive: Soft Extremities: Absent: edema <KASSANDRA STINSON Last Filed: 01/15/21 17:07> Assessment and Plan - Patient Problems (1) Atrial fibrillation Status: Acute (2) CHF (congestive heart failure) Status: Acute (3) COPD with exacerbation Status: Acute Subjective Interval history: I SAW THIS PT & AGREE WITH THE Dx & Tx PLAN.
--- NOTE | 2021-01-10 17:31 | Progress Note ---
Assessment and Plan Assessment and plan: 60-year-old female with no significant past medical history was brought to the emergency room because of progressive shortness of breath particularly on exertion for last 1 week. She reports some associated swelling in bilateral lower legs. Patient denies any chest pain, fever, cough. She denies any known contact with anyone who has tested positive for COVID-19. Patient states she has not received a COVID-19 vaccine yet. She is also reporting some lower abdominal pain. Patient reports tobacco use, denies any alcohol or drug use. In the emergency room patient is found to have acute CHF exacerbation. Patient also has A. fib with RVR. D-dimer is elevated 1343.06. proBNP 1810. CT scan of the chest showed no PE, moderate acute congestive heart failure generalized anasarca 01/05: Patient seen and examined resting comfortably although gets short of breath with exertion. Continue IV Lasix. Patient also on Cardizem drip for ventricular response control for A. fib and full anticoagulation. Seen by cardiology awaiting echocardiogram report and will check TSH. Recommended that the patient will be evaluated for ischemic work-up once A. fib is corrected. I did discuss extensively with the patient on tobacco use cessation she verbalized understanding and plans to quit tobacco use. She understands the risk associated with continued tobacco use considering her medical condition. She currently lives with her sister discharge she plans to obtain a primary care doctor insurance so that she can get work-up for possible underlying COPD Patient still has some hypoxia and exertional dyspnea unable to be discharged at this time needs further inpatient work-up including diuresis 01/06: Patient still with some shortness of breath on exertion atrial fibrillation not properly controlled at this time. Discussed with cardiology patient also has evidence of right heart strain with cor pulmonale. Considering her COPD diagnosis again smoking cessation was discussed for 15 minutes we will go ahead and obtain pulmonary consultation. Av Specialist plans to give the patient 1 dose of dig while we change the Lasix to daily and as blood pressure improves may go back up on the Cardizem for better heart rate control. In the meantime we will order a free T4 as TSH is significantly low there may be a touch of hyperthyroidism in this case and starting patient on Tapazole may be helpful if diagnosed. 01/07: Free T4 is elevated as anticipated patient started on Tapazole. Counseling provided to the patient and medication we will also check LFTs for baseline now. Again smoking cessation discussed in detail pulmonary input noted. Will defer adjustment of beta-blockers to assistant production editor. Heart rate still uncontrolled still with shortness of breath. 01/08: Following discussion with her assistant production editor patient now recalls admission for evaluation at [facility] and at that time there was concern about her thyroid she is a very poor historian and very poor medical compliance patient. So atrial fibrillation may actually be old and no new onset and just exacerbated with hypothyroidism. We will try to get records otherwise continue current management discussed holding parameters of medications with nursing staff. Also discussed with assistant production editor. Ischemic work-up deferred to assistant production editor 01/09: Continue supportive care, steroids, lasix, BB, and methimazole. Reviewed records from [facility] apparently patient was seen in 2018 with thyrotoxicosis some venostasis in addition to hallucination. There was no further evidence that any treatment was started at the time. Unfortunately patient continues to smoke. There was also no documentation of for any psych evaluation. Patient does not exhibit any psychiatric illness at this time or hallucination. We will continue current management to better control atrial fibrillation. 01/10 Patient with acute systolic CF. Echo done on 01/04 revealed EF 35-40%. She feels better. Less shortness ofbreath. less leg edema. Cardiology following. I discussed with Cardiology. Likely stress test tomorrow. (1) New onset of congestive heart failure Status: Acute Plan to address problem: Continue on CHF pathway. Oxygen by nasal cannula 3 to per minute. DuoNeb by nebulizer every 4 hours as needed. Fluid restriction. Lasix 40 mg IV every 12 hours. Strict input output. Echocardiogram. Will consult cardiology for evaluation. (2) atrial fibrillation with RVR Status: Acute Plan to address problem: Patient got Cardizem 20 mg IV x1 dose. We will put the patient on Lopressor 25 mg p.o. twice daily. Aspirin 325 mg p.o. daily. Lipitor 40 mg p.o. daily. Echocardiogram. Will consult cardiology for evaluation. Heparin 5000 units subcu every 8 hours (3) hyperthyroidism new diagnosis (4) Tobacco abuse Status: Acute Plan to address problem: We counseled regarding quitting smoking. We put the patient on nicotine patch 7 mg transdermally daily (5) UTI (urinary tract infection) Status: Acute Plan to address problem: Rocephin 1 g IV daily. We sent the blood and urine for culture (6) presumed COPD (7) cor pulmonale/underlining cardiomyopathy (8) DVT prophylaxis Status: Acute Plan to address problem: Heparin 5000 units subcu every 8 hours for DVT prophylaxis. Pepcid 20 mg p.o. twice daily for GI prophylaxis. Patient is a full code. History Interval history: Less shortness of breath No chest pain No fever Patient asking whether she needs a stress test Hospitalist Physical - Physical exam Narrative exam: VITAL SIGNS: Reviewed. GENERAL: Not in acute distress, sitting up in bed HEAD: No signs of head trauma. EYES: Pupils are equal. Extraocular motions intact. EARS: Hearing grossly intact. MOUTH: Oropharynx is normal. NECK: No adenopathy, no JVD. CHEST: Bilateral basal crackles, . CARDIAC: Irregularly irregular. S1 and S2, without murmurs, gallops, or rubs. ABDOMEN: Soft, non tender and non distended. No rebound or guarding, and no masses palpated. Bowel Sounds normal. MUSCULOSKELETAL: Good range of motion of all major joints. Extremities without clubbing, cyanosis. 2+ pitting edema bilaterally. NEUROLOGIC EXAM: Alert and oriented x 3 No focal sensory or strength deficits. Speech normal. Follows commands. PSYCHIATRIC: Mood Anxious. SKIN: Some old healed wound left lower extremity. Detail exam as documented in skin assessment - Constitutional Vitals: Temp Pulse Resp BP Pulse Ox 98.4 F 111 H 18 104/78 91 01/10/21 07:52 01/10/21 17:18 01/10/21 17:18 01/10/21 17:02 01/10/21 12:52 HEART Score - HEART Score Age: 45-65 Risk factors: 1-2 risk factors Troponin: Troponin T < 0.010 ng/mL (0.00-0.029) 01/05/21 05:21 Troponin: < normal limit Results - Labs CBC & Chem 7: 01/05/21 05:21 01/05/21 05:21 Labs: Laboratory Last Values WBC 5.5 K/mm3 (4.5-11.0) 01/05/21 05:21 RBC 3.97 M/mm3 (3.65-5.03) 01/05/21 05:21 Hgb 10.7 gm/dl (10.1-14.3) 01/05/21 05:21 Hct 32.6 % (30.3-42.9) 01/05/21 05:21 MCV 82 fl (79-97) 01/05/21 05:21 MCH 27 pg (28-32) L 01/05/21 05:21 MCHC 33 % (30-34) 01/05/21 05:21 RDW 15.0 % (13.2-15.2) 01/05/21 05:21 Plt Count 148 K/mm3 (140-440) 01/05/21 05:21 Lymph % (Auto) 44.1 % (13.4-35.0) H 01/05/21 05:21 [place]ill % (Auto) 9.5 % (0.0-7.3) H 01/05/21 05:21 Eos % (Auto) 0.7 % (0.0-4.3) 01/05/21 05:21 Baso % (Auto) 0.5 % (0.0-1.8) 01/05/21 05:21 Lymph # (Auto) 2.4 K/mm3 (1.2-5.4) 01/05/21 05:21 Traill # (Auto) 0.5 K/mm3 (0.0-0.8) 01/05/21 05:21 Eos # (Auto) 0.0 K/mm3 (0.0-0.4) 01/05/21 05:21 Baso # (Auto) 0.0 K/mm3 (0.0-0.1) 01/05/21 05:21 Seg Neutrophils % 45.2 % (40.0-70.0) 01/05/21 05:21 Seg Neutrophils # 2.5 K/mm3 (1.8-7.7) 01/05/21 05:21 PT 15.7 Sec. (12.2-14.9) H 01/04/21 19:21 INR 1.25 (0.87-1.13) H 01/04/21 19:21 APTT 27.7 Sec. (24.2-36.6) 01/04/21 19:21 D-Dimer 1343.06 ng/mlDDU (0-234) H 01/04/21 19:21 ABG pH 7.400 (7.320-7.450) 01/06/21 15:14 POC ABG pCO2 38.4 mmHg (32.0-48.0) 01/06/21 15:14 POC ABG pO2 60.3 mmHg (83-108) L 01/06/21 15:14 POC ABG HCO3 23.3 01/06/21 15:14 ABG O2 Saturation 90.1 (0-100) 01/06/21 15:14 POC ABG Base Excess -1.3 01/06/21 15:14 ABG Hemoglobin 11.1 (12.0-17.5) L 01/06/21 15:14 ABG Oxyhemoglobin 89.0 (94-98) L 01/06/21 15:14 ABG Methemoglobin 0.3 (0.0-1.5) 01/06/21 15:14 ABG Sodium 135.5 mmol/L (136.0-145.0) L 01/06/21 15:14 ABG Potassium 3.8 mmol/L (3.40-4.50) 01/06/21 15:14 ABG Chloride 105.0 mmol/L (98-107) 01/06/21 15:14 ABG Glucose 115 mg/dL (65-95) H 01/06/21 15:14 Carboxyhemoglobin 0.9 (0.5-1.5) 01/06/21 15:14 FiO2 % 28.0 01/06/21 15:14 Sodium 140 mmol/L (137-145) 01/05/21 05:21 Potassium 4.2 mmol/L (3.6-5.0) 01/05/21 05:21 Chloride 107.4 mmol/L (98-107) H 01/05/21 05:21 Carbon Dioxide 23 mmol/L (22-30) 01/05/21 05:21 Anion Gap 14 mmol/L 01/05/21 05:21 BUN 18 mg/dL (7-17) H 01/05/21 05:21 Creatinine 0.6 mg/dL (0.6-1.2) 01/05/21 05:21 Estimated GFR > 60 ml/min 01/05/21 05:21 BUN/Creatinine Ratio 30 % 01/05/21 05:21 Glucose 95 mg/dL (65-100) 01/05/21 05:21 Calcium 8.9 mg/dL (8.4-10.2) 01/05/21 05:21 Total Bilirubin 0.50 mg/dL (0.1-1.2) 01/07/21 11:19 Direct Bilirubin 0.3 mg/dL (0-0.2) H 01/07/21 11:19 Indirect Bilirubin 0.2 mg/dL 01/07/21 11:19 AST 15 units/L (5-40) 01/07/21 11:19 ALT 10 units/L (7-56) 01/07/21 11:19 Alkaline Phosphatase 108 units/L (35-129) 01/07/21 11:19 Troponin T < 0.010 ng/mL (0.00-0.029) 01/05/21 05: NT-Pro-B Natriuret Pep 1810 pg/mL (0-900) H 01/04/21 19:21 Total Protein 6.1 g/dL (6.3-8.2) L 01/07/21 11:19 Albumin 3.5 g/dL (3.9-5) L 01/07/21 11:19 Albumin/Globulin Ratio 1.3 % 01/07/21 11:19 Lipase 35 units/L (13-60) 01/04/21 19:26 TSH < 0.005 mlU/mL (0.270-4.200) L 01/05/21 10:43 Free T4 2.76 ng/dL (0.76-1.46) H 01/06/21 09:25 Arterial Blood Glucose 115 mg/dL (65-95) H 01/06/21 15:14 Arterial Blood Ionized Calcium 4.5 mg/dL (4.6-5.3) L 01/06/21 15:14 Urine Color Shereen (Yellow) 01/04/21 Unknown Urine Turbidity Hazy (Clear) 01/04/21 Unknown Urine pH 5.0 (5.0-7.0) 01/04/21 Unknown Ur Specific [place] 1.025 (1.003-1.030) 01/04/21 Unknown Urine Protein 100 mg/dl mg/dL (Negative) 01/04/21 Unknown Urine Glucose (UA) Neg mg/dL (Negative) 01/04/21 Unknown Urine Ketones Neg mg/dL (Negative) 01/04/21 Unknown Urine Blood Neg (Negative) 01/04/21 Unknown Urine Nitrite Neg (Negative) 01/04/21 Unknown Urine Bilirubin Neg (Negative) 01/04/21 Unknown Urine Urobilinogen 4.0 mg/dL (<2.0) 01/04/21 Unknown Ur Leukocyte Esterase Sm (Negative) 01/04/21 Unknown Urine WBC (Auto) 11.0 /HPF (0.0-6.0) H 01/04/21 Unknown Urine RBC (Auto) 5.0 /HPF (0.0-6.0) 01/04/21 Unknown U Epithel Cells (Auto) 8.0 /HPF (0-13.0) 01/04/21 Unknown Urine Bacteria (Auto) 1+ /HPF (Negative) 01/04/21 Unknown Hyaline Casts 1 /LPF 01/04/21 Unknown Urine Mucus 3+ /HPF 01/04/21 Unknown Urine Opiates Screen Negative 01/04/21 Unknown Urine Methadone Screen Negative 01/04/21 Unknown Ur Barbiturates Screen Negative 01/04/21 Unknown Ur Phencyclidine Scrn Negative 01/04/21 Unknown Ur Amphetamines Screen Negative 01/04/21 Unknown U Benzodiazepines Scrn Negative 01/04/21 Unknown Urine Cocaine Screen Negative 01/04/21 Unknown U Marijuana (THC) Screen Negative 01/04/21 Unknown Drugs of Abuse Note Disclamer 01/04/21 Unknown Coronavirus (PCR) Negative (Negative) 01/06/21 Unknown Bolaños/IV: Voiding Method Toilet Active Medications - Current Medications Current Medications: Generic Name Dose Route Start Last Admin Trade Name Freq PRN Reason Stop Dose Admin Acetaminophen 650 mg 01/04/21 21:48 01/09/21 05:18 Acetaminophen 325 Mg Tab PO 650 mg Q4H PRN Administration Pain MILD(1-3)/Fever >100.5/HAMMONDS Albuterol 2.5 mg 01/04/21 21:48 Albuterol 2.5 Mg/3 Ml Nebu IH Q3HRT PRN Shortness Of Breath Alprazolam 0.25 mg 01/09/21 16:00 01/09/21 21:32 Alprazolam 0.25 Mg Tab PO 0.25 mg Q8H PRN Administration Anxiety Aspirin 325 mg 01/05/21 10:00 01/10/21 09:01 Aspirin 325 Mg Tab PO 325 mg QDAY VON Administration Atorvastatin Calcium 40 mg 01/04/21 22:00 01/09/21 20:59 Atorvastatin 40 Mg Tab PO 40 mg QHS VON Administration Diltiazem HCl 30 mg 01/05/21 12:00 01/10/21 17:02 Diltiazem 30 Mg Tab PO 30 mg Q6HR OVN Administration Enoxaparin Sodium 70 mg 01/07/21 10:00 01/10/21 08:59 Enoxaparin 80 Mg/0.8 Ml Inj SUB-Q 70 mg Q12HR VNO Administration Famotidine 20 mg 01/04/21 22:00 01/10/21 09:00 Famotidine 20 Mg Tab PO 20 mg BID VON Administration Furosemide 40 mg 01/10/21 10:00 01/10/21 09:00 Furosemide 40 Mg/4 Ml Inj IV 40 mg BID VON Administration Hydralazine HCl 10 mg 01/04/21 22:02 Hydralazine 20 Mg/1 Ml Inj IV Q6H PRN htn Ipratropium [place] 0.5 mg 01/06/21 16:00 01/10/21 17:08 Ipratropium 0.02% Nebu 2.5 Ml IH 0.5 mg QIDRT VON Administration Lisinopril 5 mg 01/05/21 10:00 01/10/21 09:02 Lisinopril 5 Mg Tab PO 5 mg QDAY VON Administration Methimazole 20 mg 01/09/21 07:00 01/10/21 08:29 Methimazole 5 Mg Tab PO 20 mg 0700 VON Administration Morphine Sulfate 2 mg 01/04/21 21:48 Morphine 2 Mg/1 Ml Inj IV Q5MIN PRN Chest Pain unrelieved by NTG Nitroglycerin 0.4 mg 01/04/21 21:48 Nitroglycerin 0.4 Mg Tab Subl SL .Q5MIN PRN Chest Pain Ondansetron HCl 4 mg 01/04/21 21:48 Ondansetron 4 Mg/2 Ml Inj IV Q8H PRN Nausea And Vomiting Propranolol HCl 10 mg 01/06/21 10:00 01/10/21 16:59 Propranolol 10 Mg Tab PO 10 mg Q6H VON Administration Sodium Chloride 10 ml 01/04/21 22:00 01/10/21 09:02 Sodium Chloride 0.9% 10 Ml Flush Syringe IV 10 ml BID VON Administration Sodium Chloride 10 ml 01/04/21 21:48 Sodium Chloride 0.9% 10 Ml Flush Syringe IV PRN PRN LINE FLUSH Spironolactone 25 mg 01/10/21 10:00 01/10/21 09:04 Spironolactone 25 Mg Tab PO 25 mg QDAY VON Administration Tramadol HCl 50 mg 01/04/21 21:48 01/10/21 04:31 Tramadol 50 Mg Tab PO 50 mg Q6H PRN Administration Pain, Moderate (4-6)
[2021-01-10] MEDS: ALPRAZolam 0.25 MG TAB PO PRN (21:13)
[2021-01-11] MEDS: dilTIAZem 30 MG TAB PO SCH ×4 (00:51→18:08)
[2021-01-11] MEDS: PROPRANOLOL 10 MG TAB PO SCH ×4 (04:59→21:23)
[2021-01-11] MEDS: methIMAzole 5 MG TAB PO SCH (06:19)
[2021-01-11] MEDS ORDERED: REGADENOSON 0.4 MG/5 ML INJ IV ONE (07:40)
[2021-01-11] MEDS: IPRATROPIUM 0.02% NEBU 2.5 ML IH SCH ×4 (09:18→19:34)
[2021-01-11] MEDS: ENOXAPARIN 80 MG/0.8 ML INJ SUB-Q SCH ×2 (11:15→21:24)
[2021-01-11] MEDS: FAMOTIDINE 20 MG TAB PO SCH ×2 (11:15→21:24)
[2021-01-11] MEDS: LISINOPRIL 5 MG TAB PO SCH (11:15)
[2021-01-11] MEDS: ASPIRIN 325 MG TAB PO SCH (11:15)
[2021-01-11] MEDS: FUROSEMIDE 40 MG/4 ML INJ IV SCH ×2 (11:16→21:23)
[2021-01-11] MEDS: SPIRONOLACTONE 25 MG TAB PO SCH (11:16)
--- NOTE | 2021-01-11 12:00 | Progress Note ---
Assessment and Plan - Patient Problems (1) Atrial fibrillation Current Visit: Yes Status: Acute (2) CHF (congestive heart failure) Current Visit: Yes Status: Acute (3) COPD with exacerbation Current Visit: Yes Status: Acute Subjective Date of service: 01/11/21 Principal diagnosis: Atrial Fib, CHF Interval history: FEELS BETTTER Objective Vital Signs Temp Pulse Pulse Resp Resp BP BP 01/11/21 11:18 125 H 113/72 01/11/21 11:16 125 H 113/72 01/11/21 11:15 125 H 113/72 01/11/21 11:14 125 H 112/72 01/11/21 10:12 113/72 01/11/21 10:10 122/70 01/11/21 10:08 113/71 01/11/21 10:07 120/80 01/11/21 10:06 114/87 01/11/21 09:45 103/71 01/11/21 08:07 98.4 F 50 L 18 108/76 01/11/21 06:20 90 114/70 01/11/21 05:09 98.2 F 89 20 114/70 01/11/21 04:00 90 01/10/21 23:47 97.6 F 69 16 104/65 01/10/21 21:02 01/10/21 21:01 72 18 01/10/21 19:32 98.5 F 89 20 113/70 01/10/21 17:18 111 H 18 01/10/21 17:02 100 H 104/78 01/10/21 16:59 100 H 104/78 01/10/21 12:52 73 116/70 01/10/21 12:51 111 H 116/70 01/10/21 12:45 93 H 18 Pulse Ox 01/11/21 11:18 01/11/21 11:16 01/11/21 11:15 01/11/21 11:14 01/11/21 10:12 01/11/21 10:10 01/11/21 10:08 01/11/21 10:07 01/11/21 10:06 01/11/21 09:45 01/11/21 08:07 89 01/11/21 06:20 01/11/21 05:09 95 01/11/21 04:00 01/10/21 23:47 96 01/10/21 21:02 93 01/10/21 21:01 01/10/21 19:32 92 01/10/21 17:18 01/10/21 17:02 01/10/21 16:59 01/10/21 12:52 91 01/10/21 12:51 01/10/21 12:45 - Physical Examination General: No Apparent Distress HEENT: Positive: PERRL Neck: Positive: neck supple Cardiac: Positive: Irregularly Regular Lungs: Positive: Decreased Breath Sounds Neuro: Positive: Grossly Intact Abdomen: Positive: Soft Skin: Positive: Clear Extremities: Present: +1 Edema. Absent: edema
--- NOTE | 2021-01-11 12:58 | Progress Note ---
Assessment and Plan Assessment and plan: 60-year-old female with no significant past medical history was brought to the emergency room because of progressive shortness of breath particularly on exertion for last 1 week. She reports some associated swelling in bilateral lower legs. Patient denies any chest pain, fever, cough. She denies any known contact with anyone who has tested positive for COVID-19. Patient states she has not received a COVID-19 vaccine yet. She is also reporting some lower abdominal pain. Patient reports tobacco use, denies any alcohol or drug use. In the emergency room patient is found to have acute CHF exacerbation. Patient also has A. fib with RVR. D-dimer is elevated 1343.06. proBNP 1810. CT scan of the chest showed no PE, moderate acute congestive heart failure generalized anasarca 01/05: Patient seen and examined resting comfortably although gets short of breath with exertion. Continue IV Lasix. Patient also on Cardizem drip for ventricular response control for A. fib and full anticoagulation. Seen by cardiology awaiting echocardiogram report and will check TSH. Recommended that the patient will be evaluated for ischemic work-up once A. fib is corrected. I did discuss extensively with the patient on tobacco use cessation she verbalized understanding and plans to quit tobacco use. She understands the risk associated with continued tobacco use considering her medical condition. She currently lives with her sister discharge she plans to obtain a primary care doctor insurance so that she can get work-up for possible underlying COPD Patient still has some hypoxia and exertional dyspnea unable to be discharged at this time needs further inpatient work-up including diuresis 01/06: Patient still with some shortness of breath on exertion atrial fibrillation not properly controlled at this time. Discussed with cardiology patient also has evidence of right heart strain with cor pulmonale. Considering her COPD diagnosis again smoking cessation was discussed for 15 minutes we will go ahead and obtain pulmonary consultation. Grinder Set Up Operator plans to give the patient 1 dose of dig while we change the Lasix to daily and as blood pressure improves may go back up on the Cardizem for better heart rate control. In the meantime we will order a free T4 as TSH is significantly low there may be a touch of hyperthyroidism in this case and starting patient on Tapazole may be helpful if diagnosed. 01/07: Free T4 is elevated as anticipated patient started on Tapazole. Counseling provided to the patient and medication we will also check LFTs for baseline now. Again smoking cessation discussed in detail pulmonary input noted. Will defer adjustment of beta-blockers to manager bench. Heart rate still uncontrolled still with shortness of breath. 01/08: Following discussion with her manager bench patient now recalls admission for evaluation at [facility] and at that time there was concern about her thyroid she is a very poor historian and very poor medical compliance patient. So atrial fibrillation may actually be old and no new onset and just exacerbated with hypothyroidism. We will try to get records otherwise continue current management discussed holding parameters of medications with nursing staff. Also discussed with manager bench. Ischemic work-up deferred to manager bench 01/09: Continue supportive care, steroids, lasix, BB, and methimazole. Reviewed records from [facility] apparently patient was seen in 2018 with thyrotoxicosis some venostasis in addition to hallucination. There was no further evidence that any treatment was started at the time. Unfortunately patient continues to smoke. There was also no documentation of for any psych evaluation. Patient does not exhibit any psychiatric illness at this time or hallucination. We will continue current management to better control atrial fibrillation. 01/10 Patient with acute systolic CHF. Echo done on 01/04 revealed EF 35-40%. She feels better. Less shortness of breath. less leg edema. Cardiology following. I discussed with Cardiology. Likely stress test tomorrow. 01/11 Patient with acute systolic CHF, uncontrolled afib. Cardiology following. Cardiology to start anticoag prior to discharge. Her rate is still uncontrolled. On Cardizem, Propranolol. She is also on Tapazole for hyperthroidism. (1) New onset of congestive heart failure Status: Acute Plan to address problem: Continue on CHF pathway. Oxygen by nasal cannula 3 to per minute. DuoNeb by nebulizer every 4 hours as needed. Fluid restriction. Lasix 40 mg IV every 12 hours. Strict input output. Echocardiogram. Will consult cardiology for evaluation. (2) atrial fibrillation with RVR Status: Acute Plan to address problem: Patient got Cardizem 20 mg IV x1 dose. We will put the patient on Lopressor 25 mg p.o. twice daily. Aspirin 325 mg p.o. daily. Lipitor 40 mg p.o. daily. Echocardiogram. Will consult cardiology for evaluation. Heparin 5000 units subcu every 8 hours (3) hyperthyroidism new diagnosis (4) Tobacco abuse Status: Acute Plan to address problem: We counseled regarding quitting smoking. We put the patient on nicotine patch 7 mg transdermally daily (5) UTI (urinary tract infection) Status: Acute Plan to address problem: Rocephin 1 g IV daily. We sent the blood and urine for culture (6) presumed COPD (7) cor pulmonale/underlining cardiomyopathy (8) DVT prophylaxis Status: Acute Plan to address problem: Heparin 5000 units subcu every 8 hours for DVT prophylaxis. Pepcid 20 mg p.o. twice daily for GI prophylaxis. Patient is a full code. History Interval history: Less shortness of breath No chest pain No fever Hospitalist Physical - Physical exam Narrative exam: VITAL SIGNS: Reviewed. GENERAL: Not in acute distress, sitting up in bed HEAD: No signs of head trauma. EYES: Pupils are equal. Extraocular motions intact. EARS: Hearing grossly intact. MOUTH: Oropharynx is normal. NECK: No adenopathy, no JVD. CHEST: Bilateral basal crackles, . CARDIAC: Irregularly irregular. S1 and S2, without murmurs, gallops, or rubs. ABDOMEN: Soft, non tender and non distended. No rebound or guarding, and no masses palpated. Bowel Sounds normal. MUSCULOSKELETAL: Good range of motion of all major joints. Extremities without clubbing, cyanosis. 2+ pitting edema bilaterally. NEUROLOGIC EXAM: Alert and oriented x 3 No focal sensory or strength deficits. Speech normal. Follows commands. PSYCHIATRIC: Mood Anxious. SKIN: Some old healed wound left lower extremity. Detail exam as documented in skin assessment - Constitutional Vitals: Temp Pulse Resp BP Pulse Ox 98.0 F 99 H 18 102/62 90 01/11/21 11:28 01/11/21 11:28 01/11/21 11:28 01/11/21 11:28 01/11/21 11:28 General appearance: Present: no acute distress, well-nourished HEART Score - HEART Score Age: 45-65 Risk factors: 1-2 risk factors Troponin: Troponin T < 0.010 ng/mL (0.00-0.029) 01/05/21 05:21 Troponin: < normal limit Results - Labs CBC & Chem 7: 01/05/21 05:21 01/05/21 05:21 Labs: Laboratory Last Values WBC 5.5 K/mm3 (4.5-11.0) 01/05/21 05:21 RBC 3.97 M/mm3 (3.65-5.03) 01/05/21 05:21 Hgb 10.7 gm/dl (10.1-14.3) 01/05/21 05:21 Hct 32.6 % (30.3-42.9) 01/05/21 05:21 MCV 82 fl (79-97) 01/05/21 05:21 MCH 27 pg (28-32) L 01/05/21 05:21 MCHC 33 % (30-34) 01/05/21 05:21 RDW 15.0 % (13.2-15.2) 01/05/21 05:21 Plt Count 148 K/mm3 (140-440) 01/05/21 05:21 Lymph % (Auto) 44.1 % (13.4-35.0) H 01/05/21 05:21 [place] % (Auto) 9.5 % (0.0-7.3) H 01/05/21 05:21 Eos % (Auto) 0.7 % (0.0-4.3) 01/05/21 05:21 Baso % (Auto) 0.5 % (0.0-1.8) 01/05/21 05:21 Lymph # (Auto) 2.4 K/mm3 (1.2-5.4) 01/05/21 05:21 [place] # (Auto) 0.5 K/mm3 (0.0-0.8) 01/05/21 05:21 Eos # (Auto) 0.0 K/mm3 (0.0-0.4) 01/05/21 05:21 Baso # (Auto) 0.0 K/mm3 (0.0-0.1) 01/05/21 05:21 Seg Neutrophils % 45.2 % (40.0-70.0) 01/05/21 05:21 Seg Neutrophils # 2.5 K/mm3 (1.8-7.7) 01/05/21 05:21 PT 15.7 Sec. (12.2-14.9) H 01/04/21 19:21 INR 1.25 (0.87-1.13) H 01/04/21 19:21 APTT 27.7 Sec. (24.2-36.6) 01/04/21 19:21 D-Dimer 1343.06 ng/mlDDU (0-234) H 01/04/21 19:21 ABG pH 7.400 (7.320-7.450) 01/06/21 15:14 POC ABG pCO2 38.4 mmHg (32.0-48.0) 01/06/21 15:14 POC ABG pO2 60.3 mmHg (83-108) L 01/06/21 15:14 POC ABG HCO3 23.3 01/06/21 15:14 ABG O2 Saturation 90.1 (0-100) 01/06/21 15:14 POC ABG Base Excess -1.3 01/06/21 15:14 ABG Hemoglobin 11.1 (12.0-17.5) L 01/06/21 15:14 ABG Oxyhemoglobin 89.0 (94-98) L 01/06/21 15:14 ABG Methemoglobin 0.3 (0.0-1.5) 01/06/21 15:14 ABG Sodium 135.5 mmol/L (136.0-145.0) L 01/06/21 15:14 ABG Potassium 3.8 mmol/L (3.40-4.50) 01/06/21 15:14 ABG Chloride 105.0 mmol/L (98-107) 01/06/21 15:14 ABG Glucose 115 mg/dL (65-95) H 01/06/21 15:14 Carboxyhemoglobin 0.9 (0.5-1.5) 01/06/21 15:14 FiO2 % 28.0 01/06/21 15:14 Sodium 140 mmol/L (137-145) 01/05/21 05:21 Potassium 4.2 mmol/L (3.6-5.0) 01/05/21 05:21 Chloride 107.4 mmol/L (98-107) H 01/05/21 05:21 Carbon Dioxide 23 mmol/L (22-30) 01/05/21 05:21 Anion Gap 14 mmol/L 01/05/21 05:21 BUN 18 mg/dL (7-17) H 01/05/21 05:21 Creatinine 0.6 mg/dL (0.6-1.2) 01/05/21 05:21 Estimated GFR > 60 ml/min 01/05/21 05:21 BUN/Creatinine Ratio 30 % 01/05/21 05:21 Glucose 95 mg/dL (65-100) 01/05/21 05:21 Calcium 8.9 mg/dL (8.4-10.2) 01/05/21 05:21 Total Bilirubin 0.50 mg/dL (0.1-1.2) 01/07/21 11:19 Direct Bilirubin 0.3 mg/dL (0-0.2) H 01/07/21 11:19 Indirect Bilirubin 0.2 mg/dL 01/07/21 11:19 AST 15 units/L (5-40) 01/07/21 11:19 ALT 10 units/L (7-56) 01/07/21 11:19 Alkaline Phosphatase 108 units/L (35-129) 01/07/21 11:19 Troponin T < 0.010 ng/mL (0.00-0.029) 01/05/21 05: NT-Pro-B Natriuret Pep 1810 pg/mL (0-900) H 01/04/21 19:21 Total Protein 6.1 g/dL (6.3-8.2) L 01/07/21 11:19 Albumin 3.5 g/dL (3.9-5) L 01/07/21 11:19 Albumin/Globulin Ratio 1.3 % 01/07/21 11:19 Lipase 35 units/L (13-60) 01/04/21 19:26 TSH < 0.005 mlU/mL (0.270-4.200) L 01/05/21 10:43 Free T4 2.76 ng/dL (0.76-1.46) H 01/06/21 09:25 Arterial Blood Glucose 115 mg/dL (65-95) H 01/06/21 15:14 Arterial Blood Ionized Calcium 4.5 mg/dL (4.6-5.3) L 01/06/21 15:14 Urine Color Shereen (Yellow) 01/04/21 Unknown Urine Turbidity Hazy (Clear) 01/04/21 Unknown Urine pH 5.0 (5.0-7.0) 01/04/21 Unknown Ur Specific [place] 1.025 (1.003-1.030) 01/04/21 Unknown Urine Protein 100 mg/dl mg/dL (Negative) 01/04/21 Unknown Urine Glucose (UA) Neg mg/dL (Negative) 01/04/21 Unknown Urine Ketones Neg mg/dL (Negative) 01/04/21 Unknown Urine Blood Neg (Negative) 01/04/21 Unknown Urine Nitrite Neg (Negative) 01/04/21 Unknown Urine Bilirubin Neg (Negative) 01/04/21 Unknown Urine Urobilinogen 4.0 mg/dL (<2.0) 01/04/21 Unknown Ur Leukocyte Esterase Sm (Negative) 01/04/21 Unknown Urine WBC (Auto) 11.0 /HPF (0.0-6.0) H 01/04/21 Unknown Urine RBC (Auto) 5.0 /HPF (0.0-6.0) 01/04/21 Unknown U Epithel Cells (Auto) 8.0 /HPF (0-13.0) 01/04/21 Unknown Urine Bacteria (Auto) 1+ /HPF (Negative) 01/04/21 Unknown Hyaline Casts 1 /LPF 01/04/21 Unknown Urine Mucus 3+ /HPF 01/04/21 Unknown Urine Opiates Screen Negative 01/04/21 Unknown Urine Methadone Screen Negative 01/04/21 Unknown Ur Barbiturates Screen Negative 01/04/21 Unknown Ur Phencyclidine Scrn Negative 01/04/21 Unknown Ur Amphetamines Screen Negative 01/04/21 Unknown U Benzodiazepines Scrn Negative 01/04/21 Unknown Urine Cocaine Screen Negative 01/04/21 Unknown U Marijuana (THC) Screen Negative 01/04/21 Unknown Drugs of Abuse Note Disclamer 01/04/21 Unknown Coronavirus (PCR) Negative (Negative) 01/06/21 Unknown [place]ola[place]/IV: Voiding Method Toilet Active Medications - Current Medications Current Medications: Generic Name Dose Route Start Last Admin Trade Name Freq PRN Reason Stop Dose Admin Acetaminophen 650 mg 01/04/21 21:48 01/09/21 05:18 Acetaminophen 325 Mg Tab PO 650 mg Q4H PRN Administration Pain MILD(1-3)/Fever >100.5/HAMMONDS Albuterol 2.5 mg 01/04/21 21:48 Albuterol 2.5 Mg/3 Ml Nebu IH Q3HRT PRN Shortness Of Breath Alprazolam 0.25 mg 01/09/21 16:00 06/03/21 21:13 Alprazolam 0.25 Mg Tab PO 0.25 mg Q8H PRN Administration Anxiety Aspirin 325 mg 01/05/21 10:00 01/11/21 11:15 Aspirin 325 Mg Tab PO 325 mg QDAY [facility] Administration Atorvastatin Calcium 40 mg 01/04/21 22:00 01/10/21 21:13 Atorvastatin 40 Mg Tab PO 40 mg QHS VON Administration Diltiazem HCl 30 mg 01/05/21 12:00 01/11/21 11:14 Diltiazem 30 Mg Tab PO 30 mg Q6HR VON Administration Enoxaparin Sodium 70 mg 01/07/21 10:00 01/11/21 11:15 Enoxaparin 80 Mg/0.8 Ml Inj SUB-Q 70 mg Q12HR [facility] Administration Famotidine 20 mg 01/04/21 22:00 01/11/21 11:15 Famotidine 20 Mg Tab PO 20 mg BID [facility] Administration Furosemide 40 mg 01/10/21 10:00 01/11/21 11:16 Furosemide 40 Mg/4 Ml Inj IV 40 mg BID VON Administration Hydralazine HCl 10 mg 01/04/21 22:02 Hydralazine 20 Mg/1 Ml Inj IV Q6H PRN htn Ipratropium [place] 0.5 mg 01/06/21 16:00 01/11/21 09:18 Ipratropium 0.02% Nebu 2.5 Ml IH Not Given QIDRT [facility] Lisinopril 5 mg 01/05/21 10:00 01/11/21 11:15 Lisinopril 5 Mg Tab PO 5 mg QDAY [facility] Administration Methimazole 20 mg 01/09/21 07:00 01/11/21 06:19 Methimazole 5 Mg Tab PO 20 mg 0700 [facility] Administration Morphine Sulfate 2 mg 01/04/21 21:48 Morphine 2 Mg/1 Ml Inj IV Q5MIN PRN Chest Pain unrelieved by NTG Nitroglycerin 0.4 mg 01/04/21 21:48 Nitroglycerin 0.4 Mg Tab Subl SL .Q5MIN PRN Chest Pain Ondansetron HCl 4 mg 01/04/21 21:48 Ondansetron 4 Mg/2 Ml Inj IV Q8H PRN Nausea And Vomiting Propranolol HCl 10 mg 01/06/21 10:00 01/11/21 11:18 Propranolol 10 Mg Tab PO 10 mg Q6H VON Administration Sodium Chloride 10 ml 01/04/21 22:00 01/11/21 11:16 Sodium Chloride 0.9% 10 Ml Flush Syringe IV 10 ml BID VON Administration Sodium Chloride 10 ml 01/04/21 21:48 Sodium Chloride 0.9% 10 Ml Flush Syringe IV PRN PRN LINE FLUSH Spironolactone 25 mg 01/10/21 10:00 01/11/21 11:16 Spironolactone 25 Mg Tab PO 25 mg QDAY VON Administration Tramadol HCl 50 mg 01/04/21 21:48 01/10/21 04:31 Tramadol 50 Mg Tab PO 50 mg Q6H PRN Administration Pain, Moderate (4-6) Nutrition/Malnutrition Assess - Dietary Evaluation Nutrition/Malnutrition Findings: Nutrition Notes Start: 01/11/21 12: 24 Freq: Status: Active Protocol: Document 01/11/21 12:24 FISH (Rec: 01/11/21 12:25 FISH [id number]) Nutrition Notes Need for Assessment generated from: LOS Initial or Follow up Brief Note Subjective/Other Information Screen for LOS. Pt eating 75- 100% of meals. Nutrition Intervention Revisit per MD consult or patient Sign Off request:
[2021-01-12] MEDS: dilTIAZem 30 MG TAB PO SCH ×3 (00:34→11:01)
[2021-01-12] MEDS: PROPRANOLOL 10 MG TAB PO SCH ×2 (04:17→11:05)
[2021-01-12] MEDS: IPRATROPIUM 0.02% NEBU 2.5 ML IH SCH ×2 (07:21→14:29)
[2021-01-12] MEDS: ENOXAPARIN 80 MG/0.8 ML INJ SUB-Q SCH (11:00)
[2021-01-12] MEDS: ASPIRIN 325 MG TAB PO SCH (11:02)
[2021-01-12] MEDS: FAMOTIDINE 20 MG TAB PO SCH (11:02)
[2021-01-12] MEDS: FUROSEMIDE 40 MG/4 ML INJ IV SCH (11:02)
[2021-01-12] MEDS: LISINOPRIL 5 MG TAB PO SCH (11:02)
[2021-01-12] MEDS: SPIRONOLACTONE 25 MG TAB PO SCH (11:03)
[2021-01-12] MEDS: methIMAzole 5 MG TAB PO SCH (11:10)
--- NOTE | 2021-01-12 13:06 | Progress Note ---
Assessment and Plan 1. Acute congestive systolic heart failure resolved 2. Atrial fibrillation which has reverted to sinus rhythm 3. COPD 4. Cor-pulmonale likely chronic 5. Thyrotoxicosis without thyriod storm Plan. Patient is currently stable cardiac ceballos continue present medication follow-up as an outpatient Subjective Date of service: 01/12/21 Principal diagnosis: Atrial Fib, CHF Interval history: No specific cardiac complains Objective Vital Signs Temp Pulse Pulse Resp Resp BP Pulse Ox 01/12/21 11:11 80 20 115/61 94 01/12/21 11:05 83 111/66 01/12/21 11:03 83 111/66 01/12/21 11:02 83 111/66 01/12/21 11:01 83 111/66 01/12/21 07:20 83 18 90 01/12/21 07:12 98.4 F 79 20 111/66 94 01/12/21 04:17 79 124/75 01/12/21 04:08 98.0 F 79 18 124/75 91 01/12/21 00:13 98.6 F 81 18 100/63 90 01/11/21 20:16 91 H 01/11/21 19:35 105 H 19 97 01/11/21 19:32 98.4 F 98 H 18 106/54 95 01/11/21 18:08 108 H 104/54 01/11/21 16:53 97.6 F 108 H 18 104/54 97 01/11/21 16:31 98 H 102/62 01/11/21 15:01 98 H 20 - Physical Examination General: No Apparent Distress HEENT: Positive: PERRL Neck: Positive: neck supple Cardiac: Positive: irregularly irregular, S1/S2, PMI, Dilated, Laterally Displaced Lungs: Positive: clear to auscultation, No Wheeze, Rales, Rhonchi Neuro: Positive: Grossly Intact Abdomen: Positive: Soft Skin: Positive: Clear Extremities: Present: +1 Edema. Absent: edema - Allied health notes Allied health notes reviewed: RT
--- NOTE | 2021-01-12 14:16 | Discharge Summary ---
Providers - Providers Date of Admission: 01/04/21 21:33 Date of discharge: 01/12/21 Attending physician: ASH HERNANDEZ 01/04/21 Consult to Cardiac Rehabilitation [CONS] Routine Reason For Exam: Phase I 01/04/21 21:48 Consult to Physician [CONS] Routine Comment: Consulting Provider: HAYDEE MORAN Physician Instructions: Reason For Exam: A. fib 01/06/21 08:46 Consult to Physician [CONS] Routine Comment: Consulting Provider: JESUSITA ESTRADA Physician Instructions: Reason For Exam: copd Primary care physician: MESSENGER FLOORPERSON Hospitalization Condition: Stable Hospital course: 60-year-old female with no significant past medical history was brought to the emergency room because of progressive shortness of breath particularly on exertion for last 1 week. She reports some associated swelling in bilateral lower legs. Patient denies any chest pain, fever, cough. She denies any known contact with anyone who has tested positive for COVID-19. Patient states she has not received a COVID-19 vaccine yet. She is also reporting some lower abdominal pain. Patient reports tobacco use, denies any alcohol or drug use. In the emergency room patient is found to have acute CHF exacerbation. Patient also has A. fib with RVR. D-dimer is elevated 1343.06. proBNP 1810. CT scan of the chest showed no PE, moderate acute congestive heart failure generalized anasarca 01/05: Patient seen and examined resting comfortably although gets short of breath with exertion. Continue IV Lasix. Patient also on Cardizem drip for ventricular response control for A. fib and full anticoagulation. Seen by cardiology awaiting echocardiogram report and will check TSH. Recommended that the patient will be evaluated for ischemic work-up once A. fib is corrected. I did discuss extensively with the patient on tobacco use cessation she verbalized understanding and plans to quit tobacco use. She understands the risk associated with continued tobacco use considering her medical condition. She currently lives with her sister discharge she plans to obtain a primary care doctor insurance so that she can get work-up for possible underlying COPD Patient still has some hypoxia and exertional dyspnea unable to be discharged at this time needs further inpatient work-up including diuresis 01/06: Patient still with some shortness of breath on exertion atrial fibrillation not properly controlled at this time. Discussed with cardiology patient also has evidence of right heart strain with cor pulmonale. Considering her COPD diagnosis again smoking cessation was discussed for 15 minutes we will go ahead and obtain pulmonary consultation. Tube Skiver plans to give the patient 1 dose of dig while we change the Lasix to daily and as blood pressure improves may go back up on the Cardizem for better heart rate control. In the meantime we will order a free T4 as TSH is significantly low there may be a touch of hyperthyroidism in this case and starting patient on Tapazole may be helpful if diagnosed. 01/07: Free T4 is elevated as anticipated patient started on Tapazole. Counseling provided to the patient and medication we will also check LFTs for baseline now. Again smoking cessation discussed in detail pulmonary input noted. Will defer adjustment of beta-blockers to direct care professional. Heart rate still uncontrolled still with shortness of breath. 01/08: Following discussion with her direct care professional patient now recalls admission for evaluation at [facility] and at that time there was concern about her thyroid she is a very poor historian and very poor medical compliance patient. So atrial fibrillation may actually be old and no new onset and just exacerbated with hypothyroidism. We will try to get records otherwise continue current management discussed holding parameters of medications with nursing staff. Also discussed with direct care professional. Ischemic work-up deferred to direct care professional 01/09: Continue supportive care, steroids, lasix, BB, and methimazole. Reviewed records from [facility] apparently patient was seen in 2018 with thyrotoxicosis some venostasis in addition to hallucination. There was no further evidence that any treatment was started at the time. Unfortunately patient continues to smoke. There was also no documentation of for any psych evaluation. Patient does not exhibit any psychiatric illness at this time or hallucination. We will continue current management to better control atrial fibrillation. 01/10 Patient with acute systolic CHF. Echo done on 01/04 revealed EF 35-40%. She feels better. Less shortness of breath. less leg edema. Cardiology following. I discussed with Cardiology. Likely stress test tomorrow. 01/11 Patient with acute systolic CHF, uncontrolled afib. Cardiology following. Cardiology to start anticoag prior to discharge. Her rate is still uncontrolled. On Cardizem, Propranolol. She is also on Tapazole for hyperthroidism. 01/12 Patient with acute systolic CHF, afib with RVR now controlled. She is medically stable and will discharge home today to follow as outpatient.Patient started on Eliquis and Cardizem for atrial fibrillation. Also discharged home on Tapazole for hyperthyroidism. (1) Acute systolic congestive heart failure Status: Acute Plan to address problem: Continue on CHF pathway. Oxygen by nasal cannula 3 to per minute. DuoNeb by nebulizer every 4 hours as needed. Fluid restriction. Lasix 40 mg IV every 12 hours. Strict input output. Echocardiogram. . (2) atrial fibrillation with RVR Status: Acute Plan to address problem: Patient got Cardizem 20 mg IV x1 dose. We will put the patient on Lopressor 25 mg p.o. twice daily. Aspirin 325 mg p.o. daily. Lipitor 40 mg p.o. daily. Echocardiogram. Will consult cardiology for evaluation. Heparin 5000 units subcu every 8 hours (3) hyperthyroidism new diagnosis (4) Tobacco abuse Status: Acute Plan to address problem: We counseled regarding quitting smoking. We put the patient on nicotine patch 7 mg transdermally daily (5) UTI (urinary tract infection) Status: Acute Plan to address problem: Rocephin 1 g IV daily. We sent the blood and urine for culture (6) presumed COPD (7) cor pulmonale/underlining cardiomyopathy (8) DVT prophylaxis Status: Acute Plan to address problem: Heparin 5000 units subcu every 8 hours for DVT prophylaxis. Pepcid 20 mg p.o. twice daily for GI prophylaxis. Patient is a full code. Disposition: DC-01 TO HOME OR SELFCARE Final Discharge Diagnosis (Prints w/discharge instructions): 1.Acute systolic CHF. 2.Atrial fibrillation with RVR. 3.COPD exacerbation, most probably. 4.Hyperthyroidism - Discharge Diagnoses (1) Acute systolic CHF (congestive heart failure) Status: Acute (2) Atrial fibrillation with rapid ventricular response Status: Acute (3) COPD with exacerbation Status: Acute (4) Tobacco abuse Status: Acute (5) UTI (urinary tract infection) Status: Acute Core Measure Documentation - Palliative Care Palliative Care/ Comfort Measures: Not Applicable - Core Measures Any of the following diagnoses?: heart failure - Heart Failure Discharge Requirements LIZBETH/ARB for LVSD if EF <40%: Yes Beta tiffani at discharge: Yes Exam - Constitutional Vitals: Temp Pulse Resp BP Pulse Ox 98.4 F 81 20 115/61 92 01/12/21 07:12 01/12/21 14:09 01/12/21 11:11 01/12/21 11:11 01/12/21 14:09 Plan Activity: advance as tolerated Diet: low fat, low cholesterol, low salt Care Plan Goals: 1.Follow up with PCP in 1 week. 2.Follow up with [facility] in 1 week 3.Continue Eliquis Plan of Treatment: 1.Follow up with PCP in 1 week. 2.Follow up with [facility]ology in 1 week 3.Continue Eliquis Follow up with: PRIMARY CARE, [Primary Care Provider] - 7 Days Prescriptions: Spironolactone [Aldactone] 25 mg PO QDAY #30 tablet dilTIAZem [Cardizem] 30 mg PO Q6HR #120 tablet Apixaban [Eliquis] 5 mg PO BID #60 tablet AtorvaSTATin [Lipitor] 40 mg PO QHS #30 tablet Famotidine [Pepcid] 20 mg PO BID #60 tablet methIMAzole [Tapazole] 20 mg PO 0700 #30 tablet lisinopriL [Zestril TAB] 5 mg PO QDAY #30 tablet
[2021-01-12 16:28] VITALS: BP 113/59
== END 2021-01-12 16:30 | disposition home or self-care (01) | DRG 308 ==
LOC: ED 17:34 → 4A 21:33 → OBSVTOIN 21:33
PROVIDERS: ADMIT Hospitalist; ATTEND Internal Medicine
PROC: 4A033R1 Measurement of Arterial Saturation, Peripheral, Percutaneous Approach (ICD-10-PCS; principal; 2021-01-06)
DX: I48.91 Unspecified atrial fibrillation (principal); I50.21 Acute systolic (congestive) heart failure; N39.0 Urinary tract infection, site not specified; J44.1 Chronic obstructive pulmonary disease with (acute) exacerbation; Z20.822 Contact with and (suspected) exposure to COVID-19; I27.81 Cor pulmonale (chronic); I42.9 Cardiomyopathy, unspecified; E05.90 Thyrotoxicosis, unspecified without thyrotoxic crisis or storm; Z79.899 Other long term (current) drug therapy; Z79.891 Long term (current) use of opiate analgesic; Z79.01 Long term (current) use of anticoagulants; Z71.6 Tobacco abuse counseling; Z87.891 Personal history of nicotine dependence; Z91.19 Patient's noncompliance with other medical treatment and regimen
CPT/HCPCS: 36415; 36600; 71045; 71275; 76536; 78452; 80048; 80076; 80307; 81001; 82805; 83690; 83880; 84439; 84443; 84484; 85025; 85379; 85610; 85730; 87086; 93005; 93017; 93306; 94640; 94760; 96374; 96375; 99406; G0378; A9270-GY; A9502; J0696; J1644; J1650; J1940; J2060; J2785; J7512; Q9967; U0003